=== PATIENT | male | born 1945 | race Caucasian/White ===

== ENCOUNTER → 2021-02-16 09:26 | Outpatient (CLI) | payer MEDICARE, SELFPAY ==
[2021-02-18 15:21] LABS: PSA, Free 1.21 ng/mL; PSA, Free % 20.5 % (.); PSA, Total Ultrasensitive 5.9 ng/mL (0.0-4.0)
== END ==
PROVIDERS: PCP Family Medicine; Referring Provider Nurse Practitioner Adult Health; Visit Provider Nurse Practitioner Adult Health
DX: R97.20 Elevated prostate specific antigen [PSA] (principal)
CPT/HCPCS: 36415; 84153; 84154

== ENCOUNTER → 2022-08-21 | Outpatient (CLI) | payer MEDICARE, SELFPAY ==
[2022-08-21 15:57] LABS: PSA,Total- Diagnostic 8.08 ng/mL (0.0-4.0)
== END | disposition home or self-care (01) ==
PROVIDERS: PCP Family Medicine; Visit Provider Urology
DX: R97.20 Elevated prostate specific antigen [PSA] (principal)
CPT/HCPCS: 36415; 84153

== ENCOUNTER → 2023-02-28 | Outpatient (CLI) | payer MEDICARE, SELFPAY ==
[2023-02-28 11:33] LABS: PSA,Total- Diagnostic 7.59 ng/mL (0.0-4.0)
== END | disposition home or self-care (01) ==
LOC: LAB 10:09
PROVIDERS: PCP Family Medicine; Referring Provider Urology; Visit Provider Urology
DX: R97.20 Elevated prostate specific antigen [PSA] (principal)
CPT/HCPCS: 36415; 84153

== ENCOUNTER → 2023-09-02 | Outpatient (CLI) | payer MEDICARE, SELFPAY ==
[2023-09-02 14:00] LABS: PSA,Total- Diagnostic 6.87 ng/mL (0.0-4.0)
== END | disposition home or self-care (01) ==
LOC: LAB 12:53
PROVIDERS: PCP Family Medicine; Referring Provider Urology; Visit Provider Urology
DX: N40.0 Benign prostatic hyperplasia without lower urinary tract symptoms (principal)
CPT/HCPCS: 36415; 84153

== ENCOUNTER → 2024-03-03 | Outpatient (CLI) | payer MEDICARE, SELFPAY ==
[2024-03-03 11:07] LABS: PSA,Total- Diagnostic 6.64 ng/mL (0.0-4.0)
== END | disposition home or self-care (01) ==
LOC: LAB 09:31
PROVIDERS: PCP Family Medicine; Referring Provider Urology; Visit Provider Urology
DX: R97.20 Elevated prostate specific antigen [PSA] (principal)
CPT/HCPCS: 36415; 84153

== ENCOUNTER → 2025-02-25 | Outpatient (CLI) | payer MEDICARE, SELFPAY ==
--- OUTSIDE RECORDS SUMMARY | 2025-02-25 06:15 | XMS RPT_ITS | CCD ---
Author Organization [facility] Care Team Providers Care Machine Feller Name Role Phone LISA WREN DO Primary Care Physician [phone] LISA WREN DO Primary Care Physician [phone] Jodie Herrmann Unavailable Unavailable Meagan Hairing Nurse, Haile Unavailable Sydney WREN DO, LISA Attending Unavailable MOHAN DO, LISA Primary Care Unavailable MOHAN DO, LISA Primary Care Unavailable MOHAN DO, LISA Attending Unavailable MOHAN DO, LISA Primary Care Unavailable JAMES MACHINE CONTAINER WASHER-PERSONAL COMPUTER SPECIALISTELAINE Attending Unavailab galo MOHAN DO, LISA Primary Care Unavailable EVERTON GREENFIELD Attending Unavailable ANGEL DOMONIKA Consulting Unavailable MOHAN DO, LISA Primary Care Unavailable ANGEL DOMONIKA Attending Unavailable MOHAN DO, LISA Primary Care Unavailable MOHAN DO, LISA Attending Unavailable MOHAN DO, LISA Attending Unavailable MOHAN DO, LISA Primary Care Unavailable BARRY IRBY MD Attending Unavailable MOHAN DO, LISA Primary Care Unavailable MARTINA MACHINE CONTAINER WASHER-PERSONAL COMPUTER SPECIALIST, MISTY Membreno Referring Unavail able FRANCIE MARINELLI MD Consulting Unavailable BARRY IRBY MD Admitting Unavailable MOHAN DO, LISA Primary Care Unavailable BARRY IRBY MD Attending Unavailable MOHAN DO, LISA Primary Care Unavailable MOHAN DO, LISA Attending Unavailable MOHAN DO, LISA Primary Care Unavailable MOHAN DO, LISA Attending Unavailable MOHAN DO, LISA Primary Care Unavailable FIFI GROSS DO Attending Unavailable MOHAN DO, LISA Primary Care Unavailable MOHAN DO, LISA Attending Unavailable Clarke Jasso Referring Unavailable Clarke Jasso Attending Unavailable Mohan, Lisa Primary Care Unavailable Fabienne Hou Attending Unavailable Mohan, Lisa Primary Care Unavailable Allergies Allergy Classification Reported Allergen(s) Allergy Type Date of Onset Reaction(s) Facility (12 sources) Azithromycin Drug Allergy Cramping, Nausea [facility] Comment on above: Can take it along w/ anti-nausea medicine. (12 sources) tiZANidine; Translations: [tizanidine] Drug Allergy Nausea (finding) [facility] (3 sources) fluticasone / salmeterol; Translations: [fluticasone-salm eterol] Drug Allergy Difficulty breathing (finding), Irregular heart beat (finding) [facility] Medications Current Medications Medication Drug Class(es) Dates Sig (Normalized) Sig (Original) Angela 12 Hour Allergy (6 sources) Start: 01-22-2024 take 1 tablet by mouth once daily Angela 12 Hour Allergy 1 tab, Oral, qDay, 0 Refill(s) Start Date: 01/22/24 Status: Ordered Repeat number: 1 Start: 01-22-2024 take 1 mg by mouth once daily Angela 12 Hour Allergy mg =, Oral, qDay, 0 Refill(s) Start Date: 01/22/24 Status: Ordered Repeat number: 1 Start: 01-22-2024 take 1 mg by mouth once daily Angela 12 Hour Allergy mg =, Oral, qDay, 0 Refill(s) Start Date: 01/22/24 Status: Ordered apixaban 5 mg oral tablet (6 sources) Factor Xa Inhibitor Start: 11-09-2024 Eliquis 5 mg oral tablet Dose : 5 mg = 1 tab(s), Oral, BID, # 60 tab(s), 5 Refill(s), Pharmacy: [facility]/pharmacy #[id number], 172.7, cm, 10/21/24 8:50:00 EST, Height, 94.6, kg, 10/13/24 9:15:00 EST, Dosing Weight Start Date: 11/09/24 Status: Ordered Quantity: 60.0 Unit: tab(s) Repeat number: 6 Start: 04-29-2024 Eliquis 5 mg o ral tablet Dose : 5 mg = 1 tab(s), Oral, BID, # 60 tab(s), 5 Refill(s), Pharmacy: [facility]/pharmacy #[id number], 172.7, cm, 04/20/24 13:07:00 EDT, Height, 95.3, kg, 04/20/24 13:07:00 EDT, Dosing Weight Start Date: 04/29/24 Status: Ordered Quantity: 60.0 Unit: tab(s) Repeat number: 6 Start: 04-12-2024 Eliquis 5 mg o ral tablet Dose : 5 mg = 1 tab(s), Oral, BID, # 60 tab(s), 0 Refill(s), 97.1 Start Date: 04/12/24 Status: Ordered Aspirin (1 source) Platelet Aggregation Inhibitor, Nonsteroidal Anti-inflammatory Drug Start: 03-16-2019 aspirin 81 mg oral delayed release tablet Dose : 81 mg = 1 tab(s), Oral, qDay, # 30 tab(s), 0 Refill(s) Start Date: 03/16/19 Status: Ordered 24 hr buPROPion hydrochloride 300 mg extended release oral tablet (12 sources) Aminoketone Start: 10-13-2024 take 1 tablet by mouth every hour, then take 1 tablet by mouth every twenty-four hours Wellbutrin XL 300 mg/24 hours oral tablet, extended release Dose : 300 mg = 1 tab(s), Oral, q24h, # 90 tab(s), 1 Refill(s), Pharmacy: [facility]/pharmacy #[id number], Social anxiety disorder, 172.7, cm, 10/13/24 9:15:00 EST, Height, kg, 10/13/24 9:15:00 EST, Dosing Weight Start Date: 10/13/24 Status: Ordered Quantity: 90.0 Unit: tab(s) Repeat number: 2 Indication: Social phobia, unspecified Start: 10-24-2023 take 1 tablet by david th every hour, then take 1 tablet by mouth once daily Wellbutrin XL 300 mg/24 hours oral tablet, extended release Dose : 300 mg = 1 tab(s), Oral, qDay, # 90 tab(s), 3 Refill(s), Pharmacy: [facility]/pharmacy #[id number], Social anxiety disorder, 171.2, cm, 10/24/23 8:50:00 EST, Height, kg, 10/24/23 8:50:00 EST, Dosing Weight Start Date: 2/1/24 Status: Ordered Start: 12-05-2022 take 1 tablet by david th every hour, then take 1 tablet by mouth once daily Wellbutrin XL 300 mg/24 hours oral tablet, extended release Dose : 300 mg = 1 tab(s), Oral, qDay, # 90 tab(s), 3 Refill(s), [id number], Social anxiety disorder, 171.5, cm, 12/05/22 9:27:00 EDT, Height, kg, 12/05/22 9:27:00 EDT, Dosing Weight Start Date: 12/05/22 Status: Ordered Start: 11-29-2021 take 1 tablet by david th every hour, then take 1 tablet by mouth every twenty-four hours Wellbutrin XL 150 mg/24 hours oral tablet, extended release Dose : 150 mg = 1 tab(s), Oral, q24h, Stop Celexa, # 30 tab(s), 5 Refill(s), [id number], Social anxiety disorder, 172.6, cm, 08/30/21 9:24:00 EST, Height, kg, 08/30/21 9:24:00 EST, Dosing Weight Start Date: 11/29/21 Status: Ordered Start: 05-31-2021 take 1 tablet by david th every hour, then take 1 tablet by mouth every twenty-four hours Wellbutrin XL 150 mg/24 hours oral tablet, extended release Dose : 150 mg = 1 tab(s), Oral, q24h, Stop Celexa, # 30 tab(s), 5 Refill(s), [id number], Social anxiety disorder, 174, cm, 05/31/21 9:11:00 EDT, Height, kg, 05/31/21 9:11:00 EDT, Dosing Weight Start Date: 05/31/21 Status: Ordered carvedilol 12.5 mg oral tablet (5 sources) alpha-Adrenergic Luzma, beta-Adrenergic Luzma Start: 10-30-2024 carvedilol 12.5 mg oral tablet Dose : 18.75 mg = 1.5 tab(s), Oral, BID, Dose was increased, # 90 tab(s), 1 Refill(s), Pharmacy: [facility]/pharmacy #[id number], 172.7, cm, 10/21/24 8:50:00 EST, Height, kg, 10/13/24 9:15:00 EST, Dosing Weight Start Date: 10/30/24 Status: Ordered Quantity: 90.0 Unit: tab(s) Repeat number: 2 Start: 09-22-2024 carvedilol 12. 5 mg oral tablet Dose : 18.75 mg = 1.5 tab(s), Oral, BID, Dose was increased, # 90 tab(s), 0 Refill(s), Pharmacy: [facility]/pharmacy #[id number], 172.7, cm, 09/07/24 10:25:00 EST, Height, kg, 09/07/24 10:25:00 EST, Dosing Weight Start Date: 09/22/24 Status: Ordered Quantity: 90.0 Unit: tab(s) Repeat number: 1 Start: 04-29-2024 carvedilol 12. 5 mg oral tablet Dose : 18.75 mg = 1.5 tab(s), Oral, BID, Dose was increased, # 90 tab(s), 3 Refill(s), Pharmacy: [facility]/pharmacy #[id number], 172.7, cm, 04/20/24 13:07:00 EDT, Height, kg, 04/20/24 13:07:00 EDT, Dosing Weight Start Date: 04/29/24 Status: Ordered cetirizine hydrochloride 10 mg oral tablet (1 source) Histamine-1 Receptor Antagonist Start: 01-17-2021 Zyrtec 10 mg oral tablet Dose : 10 mg = 1 tab(s), Oral, qDay, # 30 tab(s), 0 Refill(s) Start Date: 01/17/21 Status: Ordered Osteo Bi-Flex (6 sources) Start: 05-27-2019 Osteo Bi-Flex See Instructions, 1 tablet once daily, 0 Refill(s) Start Date: 05/27/19 Status: Ordered docusate sodium 100 mg oral capsule (2 sources) Start: 11-25-2024 Dulcolax Stool Softener 100 mg oral capsule Dose : 100 mg = 1 cap(s), Oral, BID, PRN as needed for constipation, # 20 cap(s), 0 Refill(s) Start Date: 11/25/24 Status: Ordered Quantity: 20.0 Unit: cap(s) Repeat number: 1 Fish Oils (9 sources) Start: 06-15-2022 Fish Oil 1000 mg oral capsule Dose : 1,000 mg = 1 cap(s), Oral, BID, # 60 cap(s), 0 Refill(s) Start Date: 06/15/22 Status: Ordered Quantity: 60.0 Unit: cap(s) Repeat number: 1 Start: 06-15-2022 Fish Oil 1000 mg oral capsule Dose : 1,000 mg = 1 cap(s), Oral, BID, # 60 cap(s), 0 Refill(s) Start Date: 06/15/22 Status: Ordered fluticasone propionate 0.05 mg/actuat metered dose nasal spray (10 sources) Corticosteroid Start: 09-01-2024 take 50 ug nasal route twice daily fluticasone proprionate NASAL 50 mcg/ spray 50 mcg Dose = 1 spray(s), Nostril, each, BID, 0 Refill(s) Start Date: 09/01/24 Status: Ordered Repeat number: 1 Start: 06-02-2024 End: 11-29-2024 take 1 dose nasal route twice daily fluticasone proprionate NASAL 50 mcg/ spray Dose = 1 spray(s), Nostril, each, BID, # 1 EA, 5 Refill(s), Pharmacy: [facility]/pharmacy #[id number], Seasonal allergies, 172.7, cm, 06/02/24 9:16:00 EDT, Height, kg, 06/02/24 9:16:00 EDT, Dosing Weight Start Date: 06/02/24 Stop Date: 11/29/24 Status: Ordered Start: 10-24-2023 End: 04-21-2024 take 1 dose nasal route twice daily fluticasone proprionate NASAL 50 mcg/ spray Dose = 1 spray(s), Nostril, each, BID, # 1 EA, 5 Refill(s), Pharmacy: [facility]/pharmacy #[id number], Seasonal allergies, 171.2, cm, 10/24/23 8:50:00 EST, Height, kg, 10/24/23 8:50:00 EST, Dosing Weight Start Date: 10/24/23 Stop Date: 04/21/24 Status: Ordered Start: 01-24-2022 take 2 spray(s) nasa l route once daily fluticasone proprionate NASAL 50 mcg/ spray See Instructions, INSTILL 2 SPRAYS INTO NOSTRIL(S) DAILY, # 16 mL, 5 Refill(s), Pharmacy: [facility]/pharmacy #[id number], Seasonal allergies, 172.6, cm, 01/03/22 9:00:00 EDT, Height, kg, 01/03/22 9:00:00 EDT, Dosing Weight Start Date: 01/24/22 Status: Ordered Start: 04-26-2021 take 2 spray(s) nasa l route once daily fluticasone proprionate NASAL 50 mcg/ spray See Instructions, INSTILL 2 SPRAYS INTO NOSTRIL(S) DAILY, # 16 mL, 5 Refill(s), Pharmacy: [facility]/pharmacy #[id number], Seasonal allergies, 174, cm, 04/26/21 8:57:00 EDT, Height, kg, 04/26/21 8:57:00 EDT, Dosing Weight Start Date: 04/26/21 Status: Ordered 60 actuat fluticasone propionate 0.25 mg/actuat / salmeterol 0.05 mg/actuat dry powder inhaler (1 source) Corticosteroid, beta2-Adrenergic Agonist Start: 06-26-2024 End: 12-23-2024 take 1 dose by mouth twice daily Wixela Inhub 250 mcg-50 mcg inhalation powder Dose = 1 puff(s), Inhalation, BID, rinse mouth and throat after use, # 1 EA, 5 Refill(s), Pharmacy: [facility]/pharmacy #[id number], COPD - Chronic obstructive pulmonary disease, 172.7, cm, 06/02/24 9:16:00 EDT, Height, kg, 06/02/24 9:16:00 EDT, Dosing Weight Start Date: 06/26/24 Stop Date: 12/23/24 Status: Ordered fluticasone proprionate NASAL 50 mcg/ spray (1 source) Start: 04-26-2021 take 2 spray(s) nasal route once daily fluticasone proprionate NASAL 50 mcg/ spray See Instructions, INSTILL 2 SPRAYS INTO NOSTRIL(S) DAILY, # 16 mL, 5 Refill(s), Pharmacy: [facility]/pharmacy #[id number], Seasonal allergies, 174, cm, 04/26/21 8:57:00 EDT, Height, kg, 04/26/21 8:57:00 EDT, Dosing Weight Start Date: 04/26/21 Status: Ordered fluticasone-salmeterol 250 mcg-50 mcg/inh inhalation powder (1 source) Start: 11-25-2024 fluticasone-salmeterol 250 mcg-50 mcg/inh inhalation powder Dose = 1 puff(s), Inhalation, BID, PRN Allergy symptoms, # 60 EA, 0 Refill(s) Start Date: 11/25/24 Status: Ordered Quantity: 60.0 Unit: EA Repeat number: 1 hydroCHLOROthiazide 25 mg oral tablet (10 sources) Thiazide Diuretic Start: 09-01-2024 hydroCHLOROthiazide 25 mg oral tablet Dose : 25 mg = 1 tab(s), Oral, qDay, # 90 tab(s), 1 Refill(s), [id number], Hypertension, 171, cm, 09/01/24 10:38:00 EST, Height, kg, 09/01/24 10:38:00 EST, Dosing Weight Start Date: 09/01/24 Status: Ordered Quantity: 90.0 Unit: tab(s) Repeat number: 2 Indication: Essential (primary) hypertension Start: 04-07-2024 hydroCHLOROthi azide 25 mg oral tablet Dose : 25 mg = 1 tab(s), Oral, qDay, # 90 tab(s), 1 Refill(s), [id number], Hypertension, 171.5, cm, 04/07/24 8:46:00 EDT, Height, kg, 04/07/24 8:46:00 EDT, Dosing Weight Start Date: 04/07/24 Status: Ordered Start: 12-05-2022 hydroCHLOROthi azide 25 mg oral tablet Dose : 25 mg = 1 tab(s), Oral, qDay, # 90 tab(s), 3 Refill(s), [id number], Bilateral lower extremity edema Hypertension, 171.5, cm, 12/05/22 9:27:00 EDT, Height, kg, 12/05/22 9:27:00 EDT, Dosing Weight Start Date: 12/05/22 Status: Ordered Start: 01-03-2022 hydroCHLOROthi azide 25 mg oral tablet Dose : 25 mg = 1 tab(s), Oral, qDay, # 90 tab(s), 1 Refill(s), Pharmacy: [facility] #[id number], Bilateral lower extremity edema Hypertension, 172.6, cm, 01/03/22 9:00:00 EDT, Height, kg, 01/03/22 9:00:00 EDT, Dosing Weight Start Date: 01/03/22 Status: Ordered Start: 03-07-2021 hydroCHLOROthi azide 25 mg oral tablet Dose : 25 mg = 1 tab(s), Oral, qDay, # 90 tab(s), 1 Refill(s), Pharmacy: [facility] #[id number], Hypertension Bilateral lower extremity edema, 174, cm, 03/07/21 7:54:00 EDT, Height, kg, 03/07/21 7:54:00 EDT, Dosing Weight Start Date: 03/07/21 Status: Ordered hydrocortisone 25 mg/ml topical cream (3 sources) Corticosteroid Start: 10-22-2019 hydrocortisone 2.5% topical cream Apply 1 reynold, Topical, BID, # 20 gram(s), 1 Refill(s), [id number] Start Date: 10/22/19 Status: Ordered Start: 10-22-2019 hydrocortisone 2.5% topical cream Apply 1 reynold, Topical, BID, # 20 gram(s), 1 Refill(s), Pharmacy: [facility] #[id number] Start Date: 10/22/19 Status: Ordered ibuprofen 200 mg oral tablet (2 sources) Nonsteroidal Anti-inflammatory Drug Start: 11-25-2024 Advil 200 mg oral tablet Dose : 400 mg = 2 tab(s), Oral, q4h, PRN as needed for pain, # 120 tab(s), 0 Refill(s) Start Date: 11/25/24 Status: Ordered Quantity: 120.0 Unit: tab(s) Repeat number: 1 lisinopril 40 mg oral tablet (4 sources) Angiotensin Converting Enzyme Inhibitor Start: 12-05-2022 End: 11-30-2023 lisinopril 40 mg oral tablet Dose : 40 mg = 1 tab(s), Oral, qDay, # 90 tab(s), 3 Refill(s), Pharmacy: [facility]/pharmacy #[id number], Hypertension, 171.5, cm, 12/05/22 9:27:00 EDT, Height, kg, 12/05/22 9:27:00 EDT, Dosing Weight Start Date: 12/05/22 Stop Date: 11/30/23 Status: Ordered Start: 01-03-2022 End: 07-02-2022 lisinopril 40 mg oral tablet Dose : 40 mg = 1 tab(s), Oral, qDay, # 90 tab(s), 1 Refill(s), Pharmacy: [facility]/pharmacy #[id number], Hypertension, 172.6, cm, 01/03/22 9:00:00 EDT, Height, kg, 01/03/22 9:00:00 EDT, Dosing Weight Start Date: 01/03/22 Stop Date: 07/02/22 Status: Ordered Start: 03-07-2021 End: 09-03-2021 lisinopril 40 mg oral tablet Dose : 40 mg = 1 tab(s), Oral, qDay, # 90 tab(s), 1 Refill(s), Pharmacy: [facility]/pharmacy #[id number], Hypertension, 174, cm, 03/07/21 7:54:00 EDT, Height, kg, 03/07/21 7:54:00 EDT, Dosing Weight Start Date: 03/07/21 Stop Date: 09/03/21 Status: Ordered losartan potassium 50 mg oral tablet (10 sources) Angiotensin 2 Receptor Luzma Start: 09-01-2024 losartan 50 mg oral tablet Dose : 50 mg = 1 tab(s), Oral, qDay, # 90 tab(s), 1 Refill(s), Pharmacy: [facility]/pharmacy #[id number], Hypertension, 171, cm, 09/01/24 10:38:00 EST, Height, kg, 09/01/24 10:38:00 EST, Dosing Weight Start Date: 09/01/24 Status: Ordered Quantity: 90.0 Unit: tab(s) Repeat number: 2 Indication: Essential (primary) hypertension Start: 06-02-2024 losartan 50 mg oral tablet Dose : 50 mg = 1 tab(s), Oral, qDay, # 90 tab(s), 1 Refill(s), Pharmacy: [facility]/pharmacy #[id number], Hypertension, 172.7, cm, 06/02/24 9:16:00 EDT, Height, kg, 06/02/24 9:16:00 EDT, Dosing Weight Start Date: 06/02/24 Status: Ordered Start: 01-22-2024 losartan 50 mg oral tablet Dose : 50 mg = 1 tab(s), Oral, qDay, # 90 tab(s), 1 Refill(s), [id number], Hypertension, 171.5, cm, 01/22/24 9:00:00 EDT, Height, kg, 01/22/24 9:00:00 EDT, Dosing Weight Start Date: 01/22/24 Status: Ordered Start: 11-07-2023 losartan 50 mg oral tablet Dose : 50 mg = 1 tab(s), Oral, qDay, Start 2 weeks after finishing the 25 mg tablet prescription., # 90 tab(s), 0 Refill(s), [id number], Hypertension, 171.2, cm, 10/24/23 8:50:00 EST, Height, kg, 10/24/23 8:50:00 EST, Dosing Weight Start Date: 11/07/23 Status: Ordered Start: 11-07-2023 losartan 50 mg oral tablet Dose : 50 mg = 1 tab(s), Oral, qDay, Start 2 weeks after finishing the 25 mg tablet prescription., # 90 tab(s), 0 Refill(s), [id number], Hypertension, 171.2, cm, 10/24/23 8:50:00 EST, Height, kg, 10/24/23 8:50:00 EST, Dosing Weight Start Date: 11/07/23 Status: Ordered Start: 10-24-2023 End: 11-07-2023 losartan 25 mg oral tablet D ose : 25 mg = 1 tab(s), Oral, qDay, Discontinue lisinopril.. Take 1 tablet daily for 2 weeks then increase to 50 mg tablet. New prescription will be sent for 50 mg tablet, # 14 tab(s), 0 Refill(s), [id number], Hypertension, 171.2, cm, 10/24/23 8:50:00 EST, Height, kg, 10/24/23 8:50:00 EST, Dosing Weight Start Date: 10/24/23 Stop Date: 11/07/23 Status: Ordered melatonin 1 mg oral tablet (9 sources) Start: 02-12-2023 melatonin 1 mg oral tablet Dose : 2 mg = 2 tab(s), Oral, qHS, PRN as needed for insomnia, # 90 tab(s), 0 Refill(s) Start Date: 02/12/23 Status: Ordered Quantity: 90.0 Unit: tab(s) Repeat number: 1 naproxen sodium 220 mg oral tablet (2 sources) Nonsteroidal Anti-inflammatory Drug Start: 11-25-2024 Aleve 220 mg oral tablet Dose : 220 mg = 1 tab(s), Oral, q8h, PRN as needed for pain, # 30 tab(s), 0 Refill(s) Start Date: 11/25/24 Status: Ordered Quantity: 30.0 Unit: tab(s) Repeat number: 1 One A Day Men's Complete oral tablet (9 sources) Start: 06-15-2022 take 1 tablet by mouth once daily One A Day Men's Complete oral tablet Oral, qDay, 0 Refill(s) Start Date: 06/15/22 Status: Ordered Repeat number: 1 Start: 06-15-2022 take 1 tablet by david th once daily One A Day Men's Complete oral tablet Oral, qDay, 0 Refill(s) Start Date: 06/15/22 Status: Ordered Osteo Bi-Flex Advanced oral tablet (1 source) Start: 12-02-2024 take 1 tablet by mouth once daily at mealtime Osteo Bi-Flex Advanced oral tablet Dose = 1 tab(s), Oral, Daily, 0 Refill(s), Take with food Start Date: 12/02/24 Status: Ordered Repeat number: 1 PreserVision AREDS 2 oral capsule (5 sources) Start: 01-03-2022 take 1 capsule by mouth once daily PreserVision AREDS 2 oral capsule Dose = 1 cap(s), Oral, Daily, OTC, # 30 cap(s), 11 Refill(s), other reason (Rx) Start Date: 01/03/22 Status: Ordered simvastatin 20 mg oral tablet (10 sources) HMG-CoA Reductase Inhibitor Start: 09-01-2024 simvastatin 20 mg oral tablet Dose : 20 mg = 1 tab(s), Oral, qHS, # 90 tab(s), 3 Refill(s), [id number], Hyperlipidemia, 171, cm, 09/01/24 10:38:00 EST, Height, kg, 09/01/24 10:38:00 EST, Dosing Weight Start Date: 09/01/24 Status: Ordered Quantity: 90.0 Unit: tab(s) Repeat number: 4 Indication: Hyperlipidemia, unspecified Start: 10-24-2023 simvastatin 20 mg oral tablet Dose : 20 mg = 1 tab(s), Oral, qHS, # 90 tab(s), 3 Refill(s), Pharmacy: [facility]acy #[id number], Hyperlipidemia, 171.2, cm, 10/24/23 8:50:00 EST, Height, kg, 10/24/23 8:50:00 EST, Dosing Weight Start Date: 10/24/23 Status: Ordered Start: 12-05-2022 simvastatin 20 mg oral tablet Dose : 20 mg = 1 tab(s), Oral, qHS, # 90 tab(s), 3 Refill(s), [id number], Hyperlipidemia, 171.5, cm, 12/05/22 9:27:00 EDT, Height, kg, 12/05/22 9:27:00 EDT, Dosing Weight Start Date: 12/05/22 Status: Ordered Start: 01-10-2022 simvastatin 20 mg oral tablet Dose : 20 mg = 1 tab(s), Oral, qHS, New medication, # 90 tab(s), 1 Refill(s), [id number], Hyperlipidemia, 172.6, cm, 01/03/22 9:00:00 EDT, Height Start Date: 01/10/22 Status: Ordered tamsulosin hydrochloride 0.4 mg oral capsule (8 sources) alpha-Adrenergic Luzma Start: 03-20-2023 tamsu losin 0.4 mg oral capsule Dose : 0.4 mg = 1 cap(s), Oral, qPM, # 30 cap(s), 0 Refill(s) Start Date: 03/20/23 Status: Ordered Quantity: 30.0 Unit: cap(s) Repeat number: 1 Vitamin D3 25 mcg (1000 intl units) oral capsule (7 sources) Start: 10-24-2023 Vitamin D3 25 mcg (1000 intl units) oral capsule Dose : 75 mcg = 3 cap(s), Oral, qDay, 0 Refill(s) Start Date: 10/24/23 Status: Ordered Repeat number: 1 Start: 10-24-2023 Vitamin D3 25 mcg (1000 intl units) oral capsule Dose : 75 mcg = 3 cap(s), Oral, qDay, 0 Refill(s) Start Date: 10/24/23 Status: Ordered Start: 10-24-2023 Vitamin D3 25 mcg (1000 intl units) oral capsule Dose : 50 mcg = 2 cap(s), Oral, qDay, 0 Refill(s) Start Date: 10/24/23 Status: Ordered Vitamin D3 50 mcg (2000 intl units) oral capsule (1 source) Start: 12-02-2024 Vitamin D3 50 mcg (2000 intl units) oral capsule Dose : 50 mcg = 1 cap(s), Oral, qDay, # 60 cap(s), 0 Refill(s) Start Date: 12/02/24 Status: Ordered Quantity: 60.0 Unit: cap(s) Repeat number: 1 Completed/Discontinued Medications Medication Drug Class(es) Dates Sig (Normalized) Sig (Original) [id number] 200 actuat albuterol 0.09 mg/actuat metered dose inhaler (12 sources) beta2-Adrenergic Agonist Start: 06-02-2024 End: 11-29-2024 take 2 puff(s) by inhalation every six hours ProAir HFA MDI (90 mcg/inh) inhalation aerosol 2 puff(s), Inhalation, q6hr, # 1 EA, 5 Refill(s), Pharmacy: [facility]/pharmacy #[id number], COPD - Chronic obstructive pulmonary disease, 172.7, cm, 06/02/24 9:16:00 EDT, Height, kg, 06/02/24 9:16:00 EDT, Dosing Weight Start Date: 06/02/24 Stop Date: 11/29/24 Status: Ordered Quantity: 1.0 Unit: EA Repeat number: 6 Indication: Chronic obstructive pulmonary disease, unspecified Start: 03-20-2023 End: 09-16-2023 take 2 puff(s) by inhalation every six hours ProAir HFA MDI (90 mcg/inh) inhalation aerosol 2 puff(s), Inhalation, q6hr, # 1 EA, 5 Refill(s), [id number], COPD - Chronic obstructive pulmonary disease, 172, cm, 03/20/23 9:53:00 EDT, Height, kg, 03/20/23 9:53:00 EDT, Dosing Weight Start Date: 03/20/23 Stop Date: 09/16/23 Status: Ordered Start: 10-13-2019 ProAir HFA MDI (90 mcg/inh) inhalation aerosol See Instructions, # 8.5 inhaler, Refill #: 5 Total Refills: 5, USE 2 INHALATIONS 4 TIMES DAILY NEEDED, [facility]/pharmacy #[id number] Start Date: 10/13/19 Status: Ordered Start: 10-13-2019 ProAir HFA MDI (90 mcg/inh) inhalation aerosol See Instructions, # 8.5 inhaler, Refill #: 5 Total Refills: 5, USE 2 INHALATIONS 4 TIMES DAILY NEEDED, [facility]/pharmacy #[id number] Start Date: 10/13/19 Status: Ordered ALPRAZolam 0.5 mg oral tablet (2 sources) Benzodiazepine Start: 05-31-2021 End: 07-30-2021 ALPRAZolam 0.5 mg oral tablet Dose : 0.5 mg = 1 tab(s), Oral, BID, PRN for anxiety, use PRN, # 60 tab(s), 1 Refill(s), Pharmacy: [facility]/pharmacy #[id number], Social anxiety disorder, 174, cm, 05/31/21 9:11:00 EDT, Height, 95.1, kg, 05/31/21 9:11:00 EDT, Dosing Weight Start Date: 05/31/21 Stop Date: 07/30/21 Status: Ordered Ascorbic Acid / Beta Carotene / cuprous oxide / Vitamin E / Zinc Oxide (8 sources) Vitamin C Start: 10-24-2023 Preser Vision Preser Vision, 1 tablet, Oral, BID, 0 Refill(s), 95.8 Start Date: 10/24/23 Status: Ordered Repeat number: 1 Start: 10-24-2023 Preser Vision Preser Vision, 2 tablets, Oral, qDay, 0 Refill(s), 95.8 Start Date: 10/24/23 Status: Ordered Repeat number: 1 Start: 10-24-2023 Preser Vision Preser Vision, 2 tablets, Oral, qDay, 0 Refill(s), 95.8 Start Date: 10/24/23 Status: Ordered 24 hr metoprolol succinate 100 mg extended release oral tablet (8 sources) beta-Adrenergic Luzma Start: 04-12-2024 End: 04-12-2024 metoprolol succinate 100 mg oral TABLET extended release Start: 04/12/24 1:15:00 PM EDT, Dose = 100 mg, = 2 tab(s), Oral, Once, Stop: 04/12/24 1:52:10 PM EDT, 0, 04/12/24 13:14:00 EDT Notes: Do not crush or chew (controlled release).Take with food. Start Date: 04/12/24 Stop Date: 04/12/24 Status: Completed Start: 10-24-2023 metoprolol suc cinate 100 mg oral TABLET extended release Dose : 100 mg = 1 tab(s), Oral, qDay, # 90 tab(s), 3 Refill(s), Pharmacy: [facility] #[id number], Hypertension, 171.2, cm, 10/24/23 8:50:00 EST, Height, kg, 10/24/23 8:50:00 EST, Dosing Weight Start Date: 10/24/23 Status: Ordered Start: 12-05-2022 metoprolol suc cinate 100 mg oral TABLET extended release Dose : 100 mg = 1 tab(s), Oral, qDay, # 90 tab(s), 3 Refill(s), Pharmacy: [facility]/pharmacy #[id number], Hypertension, 171.5, cm, 12/05/22 9:27:00 EDT, Height, kg, 12/05/22 9:27:00 EDT, Dosing Weight Start Date: 12/05/22 Status: Ordered Start: 03-06-2022 metoprolol suc cinate 100 mg oral TABLET extended release Dose : 100 mg = 1 tab(s), Oral, qDay, # 90 tab(s), 0 Refill(s) Start Date: 03/06/22 Status: Ordered Start: 04-13-2022 take 1 tablet by david th once daily Metoprolol Succinate ER 200 mg oral TABLET extended release TAKE 1 TABLET BY MOUTH EVERY DAY Start Date: 01/03/22 Status: Ordered Start: 10-27-2020 End: 10-22-2021 Metoprolol Succinate ER 200 mg oral TABLET extended release Dose : 100 mg = 0.5 tab(s), Oral, qDay, decreased dose, X 90 day(s), # 45 tab(s), 3 Refill(s), 10/22/21 9:49:00 EST, Pharmacy: [facility]/pharmacy #[id number], Hypertension, 174.6, cm, 08/24/20 9:35:00 EST, Height, kg, 10/27/20 8:51:00 EST, Dosing Weight Start Date: 10/27/20 Stop Date: 10/22/21 Status: Ordered [facility] Medication (5 sources) Start: 01-22-2024 [facility] Medicatio n Osteo Bi-Flex, 0 Refill(s), 96.1 Start Date: 01/22/24 Status: Ordered Repeat number: 1 Start: 01-22-2024 [facility] Medicatio n Osteo Bi-Flex, 0 Refill(s), 96.1 Start Date: 01/22/24 Status: Ordered ondansetron 4 mg oral tablet , disintegrating (1 source) Start: 11-08-2020 End: 11-11-2020 ondansetron 4 mg oral tablet , disintegrating Dose : 4 mg = 1 tab(s), Oral, q8h, # 9 tab(s), 0 Refill(s) Start Date: 11/08/20 Stop Date: 11/11/20 Status: Ordered Problems Problem Classification Problem Date Documented Date Episodic/Chronic Allergic reactions (12 sources) Facial eczema 11-25-2019 Episodic Anxiety disorders (13 sources) Social phobia; Translations: [Social phobia, unspecified] Onset: 5 04-28-2019 Chronic Cardiac dysrhythmias (7 sources) Unspecified atrial fibrillation; Translations: [Paroxysmal atrial fibrillation] Onset: 4 Chronic Chronic kidney disease (8 sources) Chronic kidney disease stage 3 03-20-2023 Chronic Chronic kidney disease (2 sources) Chronic kidney disease; Translations: [Chronic kidney disease, stage 3 unspecified] Onset: 3 Chronic obstructive pulmonary disease and bronchiectasis (13 sources) Chronic obstructive lung disease; Translations: [Chronic obstructive pulmonary disease, unspecified] Onset: 5 04-28-2019 Chronic Coagulation and hemorrhagic disorders (5 sources) Hypercoagulability state 04-16-2024 Chronic Diseases of mouth; excluding dental (9 sources) Xerostomia 02-12-2023 Episodic Disorders of lipid metabolism (15 sources) Hyperlipidemia; Translations: [Hyperlipidemia, unspecified] Onset: 4 04-28-2019 Chronic Esophageal disorders (10 sources) Gastroesophageal reflux disease 04-28-2019 Chronic Essential hypertension (16 sources) Hypertensive disorder; Translations: [Essential (primary) hypertension] Onset: 3 04-28-2019 Chronic Hyperplasia of prostate (8 sources) Benign prostatic hyperplasia 03-20-2023 Chronic Malaise and fatigue (12 sources) Fatigue 02-07-2021 Episodic Nutritional deficiencies (3 sources) Vitamin D deficiency 10-13-2024 Chronic Other aftercare (12 sources) Post-discharge follow-up 11-17-2020 Episodi c Other connective tissue disease (12 sources) Disorder of abdominal wall 09-02-2019 Episodic Other connective tissue disease (12 sources) Increased muscle tone 03-07-2021 Episodic Other connective tissue disease (10 sources) Trigger thumb of right hand 04-26-2020 Episodic Other ear and sense organ disorders (12 sources) Bilateral hearing loss 07-15-2020 Chronic Other lower respiratory disease (12 sources) Dyspnea 01-17-2021 Episodic Other lower respiratory disease (6 sources) Cough 07-26-2023 Episodic Other non-traumatic joint disorders (12 sources) Joint pain 11-25-2019 Episodic Other nutritional; endocrine; and metabolic disorders (5 sources) Body mass index 30+ - obesity 06-02-2024 Chronic Other screening for suspected conditions (not mental disorders or infectious disease) (13 sources) Viral screening status; Translations: [Elevated prostate specific antigen [PSA]] Onset: 4 01-03-2022 Episodic Other upper respiratory disease (12 sources) Seasonal allergy 08-24-2020 Chronic Residual codes; unclassified (12 sources) Bilateral lower limb edema 01-17-2021 Episodic Residual codes; unclassified (12 sources) Needs influenza immunization 07-15-2020 Episodic Residual codes; unclassified (12 sources) Requires vaccination 07-06-2020 Episodic Screening and history of mental health and substance abuse codes (5 sources) Ex-smoker 06-02-2024 Episodic Spondylosis; intervertebral disc disorders; other back problems (12 sources) Spasm of back muscles 10-27-2020 Episodic Unclassified (12 sources) H/O: high risk medication 04-29-2019 Unclassified (20 sources) Patient encounter status 01-03-2022 Unclassified (8 sources) Influenza vaccination status 10-24-2023 Results Test Name Value Interpretation Reference Range Facility .GFRon 01-05-2025 Estimated Glomerular Filtration Rate 48 ml/min/1.73sqm Normal [facility] Comment on above: Result Comment: Stages of Chronic Kidney Disease (CKD) Stage Description eGFR(ml/min/1.73 sq.m.) CKD 1 Normal kidney function or >=90 normal kindney function with possible kidney damage (ex. Proteinuria) CKD 2 Kidney damage with mild loss 60-89 of kidney function CKD 3a Mild to moderate loss of kidney 45-59 function CKD 3b Moderate to severe loss of 30-44 of kindey function CKD 4 Severe loss of kidney function 15-29 CKD 5 Kidney failure <15 Note: (go live 2024) the eGFR calculation was updated to the 2020 CKD-EPI creatinine equation without a race factor to calculate the eGFR results. Performed By: #### M DW, TROPHS, ADIFF, TSH, MG, ANEU, CBC, GFR, BMP, PBNP #### [address] [address] CMPon 01-05-2025 Albumin Level 3.6 G/dL Normal 3.4-4.8 [facility] Comment on above: Performed By: #### M DW, TROPHS, ADIFF, TSH, MG, ANEU, CBC, GFR, BMP, PBNP #### [address] [address] Albumin/Globulin [Mass ratio] 1.1 {ratio} Normal 1.1-2.5 [facility] Comment on above: Performed By: #### M DW, TROPHS, ADIFF, TSH, MG, ANEU, CBC, GFR, BMP, PBNP #### [address] [address] ALP [Catalytic activity/Vol] 70 U/L Normal 40-135 [facility] Comment on above: Performed By: #### M DW, TROPHS, ADIFF, TSH, MG, ANEU, CBC, GFR, BMP, PBNP #### [address] [address] ALT [Catalytic activity/Vol] 36 U/L Normal 16-63 [facility] Comment on above: Performed By: #### M DW, TROPHS, ADIFF, TSH, MG, ANEU, CBC, GFR, BMP, PBNP #### [address] [address] AST [Catalytic activity/Vol] 27 U/L Normal 10-40 [facility] Comment on above: Performed By: #### M DW, TROPHS, ADIFF, TSH, MG, ANEU, CBC, GFR, BMP, PBNP #### [address] [address] Bili Total 0.9 mg/dL Normal 0.2-1.0 [facility] Comment on above: Result Comment: Use of this assay is not recommended for patients undergoing treatment with eltrombopag due to the potential for falsely elevated results. Performed By: #### M DW, TROPHS, ADIFF, TSH, MG, ANEU, CBC, GFR, BMP, PBNP #### [address] [address] BUN/Creatinine Ratio 11 ratio Normal 7-27 [facility] Comment on above: Performed By: #### M DW, TROPHS, ADIFF, TSH, MG, ANEU, CBC, GFR, BMP, PBNP #### [address] [address] Calcium [Mass/Vol] 10.0 mg/dL Normal 8.4-10.2 [facility] Comment on above: Performed By: #### M DW, TROPHS, ADIFF, TSH, MG, ANEU, CBC, GFR, BMP, PBNP #### [address] [address] Chloride [Moles/Vol] 99 mmol/L Normal 98-107 [facility] Comment on above: Performed By: #### M DW, TROPHS, ADIFF, TSH, MG, ANEU, CBC, GFR, BMP, PBNP #### [address] [address] CO2 [Moles/Vol] 34 mmol/L High 23-31 [facility] Comment on above: Performed By: #### M DW, TROPHS, ADIFF, TSH, MG, ANEU, CBC, GFR, BMP, PBNP #### [address] [address] Creatinine [Mass/Vol] 1.48 mg/dL High 0.70-1.30 [facility] Comment on above: Result Comment: Test ing performed on [employer] Dimension EXL analyzer using a modified kinetic Nolvia technique. Performed By: #### M DW, TROPHS, ADIFF, TSH, MG, ANEU, CBC, GFR, BMP, PBNP #### [address] [address] Electrolyte Balance 3.0 mEq/L Low 4.0-15.0 [facility] Comment on above: Performed By: #### M DW, TROPHS, ADIFF, TSH, MG, ANEU, CBC, GFR, BMP, PBNP #### [address] [address] Globulin 3.3 G/dL Normal 1.5-3.8 [facility] Comment on above: Performed By: #### M DW, TROPHS, ADIFF, TSH, MG, ANEU, CBC, GFR, BMP, PBNP #### [address] [address] Glucose [Mass/Vol] 105 mg/dL Normal 83-110 [facility] Comment on above: Performed By: #### M DW, TROPHS, ADIFF, TSH, MG, ANEU, CBC, GFR, BMP, PBNP #### [address] [address] Potassium [Moles/Vol] 4.2 mmol/L Normal 3.5-5.1 [facility] Comment on above: Performed By: #### M DW, TROPHS, ADIFF, TSH, MG, ANEU, CBC, GFR, BMP, PBNP #### [address] [address] Sodium [Moles/Vol] 136 mmol/L Normal 136-145 [facility] Comment on above: Performed By: #### M DW, TROPHS, ADIFF, TSH, MG, ANEU, CBC, GFR, BMP, PBNP #### [address] [address] Total Protein 6.9 G/dL Normal 6.4-8.2 [facility] Comment on above: Performed By: #### M DW, TROPHS, ADIFF, TSH, MG, ANEU, CBC, GFR, BMP, PBNP #### [address] [address] Urea nitrogen [Mass/Vol] 16 mg/dL Normal 7-18 [facility] Comment on above: Performed By: #### M DW, TROPHS, ADIFF, TSH, MG, ANEU, CBC, GFR, BMP, PBNP #### [address] [address] LIPIDon 01-05-2025 Cholesterol [Mass/Vol] 134 mg/dL Normal 0-200 [facility] Comment on above: Result Comment: Chol esterol Reference Interval: Less than 200 Desirable 200-239 Borderline high risk 240 and above High risk Performed By: #### M DW, TROPHS, ADIFF, TSH, MG, ANEU, CBC, GFR, BMP, PBNP #### [address] [address] Cholesterol in HDL [Mass/Vol] 49 mg/dL Normal 40-60 [facility] Comment on above: Performed By: #### M DW, TROPHS, ADIFF, TSH, MG, ANEU, CBC, GFR, BMP, PBNP #### [address] [address] Cholesterol in LDL [Mass/Vol] 57 mg/dL Normal 0-130 [facility] Comment on above: Performed By: #### M DW, TROPHS, ADIFF, TSH, MG, ANEU, CBC, GFR, BMP, PBNP #### [place] [address] Triglyceride [Mass/Vol] 140 mg/dL Normal 0-150 [facility] Comment on above: Result Comment: Trig lyceride Reference Interval: Less than 150 Normal 150-199 Borderline high risk 200-499 High risk 500 or higher Very high risk Performed By: #### M DW, TROPHS, ADIFF, TSH, MG, ANEU, CBC, GFR, BMP, PBNP #### [place] [address] PSAon 01-05-2025 Prostate Specific Antigen 8.13 ng/mL High 0.00-4.00 [facility] Comment on above: Performed By: #### M DW, TROPHS, ADIFF, TSH, MG, ANEU, CBC, GFR, BMP, PBNP #### [place] [address] TSHon 01-05-2025 TSH Qn 1.78 m[IU]/L Normal 0.36-3.74 [facility] Comment on above: Performed By: #### M DW, TROPHS, ADIFF, TSH, MG, ANEU, CBC, GFR, BMP, PBNP #### [place] [address] VIDHon 01-05-2025 Vit. D 25-Hydroxy 108.3 ng/mL Normal [facility] Comment on above: Result Comment: Inte rpretive Values Based on Total 25(OH) Vitamin D: Deficient <20 ng/mL Insufficient 20 - <30 ng/mL Sufficient 30-100 ng/mL Performed By: #### M DW, TROPHS, ADIFF, TSH, MG, ANEU, CBC, GFR, BMP, PBNP #### [place] [address] .GFRon 12-03-2024 Estimated Glomerular Filtration Rate 47 ml/min/1.73sqm Normal [facility] Comment on above: Result Comment: Stages of Chronic Kidney Disease (CKD) Stage Description eGFR(ml/min/1.73 sq.m.) CKD 1 Normal kidney function or >=90 normal kindney function with possible kidney damage (ex. Proteinuria) CKD 2 Kidney damage with mild loss 60-89 of kidney function CKD 3a Mild to moderate loss of kidney 45-59 function CKD 3b Moderate to severe loss of 30-44 of kindey function CKD 4 Severe loss of kidney function 15-29 CKD 5 Kidney failure <15 Note: (go live 2024) the eGFR calculation was updated to the 2020 CKD-EPI creatinine equation without a race factor to calculate the eGFR results. Performed By: #### B MP, GFR #### [address] [address] [facility] 12-03-2024 BUN/Creatinine Ratio 14.0 ratio Normal 10.0-22.0 [facility] Comment on above: Performed By: #### B MP, GFR #### [address] [address] Calcium [Mass/Vol] 9.2 mg/dL Normal 8.7-10.4 [facility] Comment on above: Performed By: #### B MP, GFR #### [address] [address] Chloride [Moles/Vol] 102 mmol/L Normal 98-110 [facility] Comment on above: Performed By: #### B MP, GFR #### [address] [address] CO2 [Moles/Vol] 25 mmol/L Normal 22-32 [facility] Comment on above: Performed By: #### B MP, GFR #### [address] [address] Creatinine [Mass/Vol] 1.50 mg/dL High 0.60-1.40 [facility] Comment on above: Result Comment: Test ing performed on [employer] analyzer using enzymatic creatinine methodology. Performed By: #### B MP, GFR #### [address] [address] Electrolyte Balance 8.0 mEq/L Normal 4.0-15.0 [facility] Comment on above: Performed By: #### B MP, GFR #### [facility] [address] [place] [address] Glucose [Mass/Vol] 129 mg/dL High 82-115 [facility] Comment on above: Performed By: #### B MP, GFR #### [facility] [address] [place] [address] Potassium [Moles/Vol] 3.8 mmol/L Normal 3.5-5.0 [facility] Comment on above: Performed By: #### B MP, GFR #### [facility] [address] [place] [address] Sodium [Moles/Vol] 135 mmol/L Low 136-145 [facility] Comment on above: Performed By: #### B MP, GFR #### [address] [address] Urea nitrogen [Mass/Vol] 21.0 mg/dL Normal 8.0-22.0 [facility] Comment on above: Performed By: #### B MP, GFR #### [address] [address] LABORATORYOrdered By: SYSTEM SYSTEM on 12-03-2024 Calcium [Mass/Vol] 9.2 mg/dL Normal 8.7 - 10. 4 mg/dL ADM SS Chloride [Moles/Vol] 102 mmol/L Normal 98 - 11 0 mEq/L AH ADM SS CO2 [Moles/Vol] 25 mmol/L Normal 22 - 32 mEq/L ADM SS Creatinine [Mass/Vol] 1.50 mg/dL High 0.60 - 1.40 mg/dL ADM SS Comment on above: Interpretive Data: T esting performed on [employer] analyzer using enzymatic creatinine methodology. Electrolyte Balance 8.0 mEq/L Normal 4.0 - 15 .0 mEq/L AH ADM SS Estimated Glomerular Filtration Rate 47 ml/min/1.73sqm Invalid Interpretation Code Chemistry S Comment on above: Interpretive Data: Stages of Chronic Kidney Disease (CKD) Stage Description eGFR(ml/min/1.73 sq.m.) CKD 1 Normal kidney function or >=90 normal kindney function with possible kidney damage (ex. Proteinuria) CKD 2 Kidney damage with mild loss 60-89 of kidney function CKD 3a Mild to moderate loss of kidney 45-59 function CKD 3b Moderate to severe loss of 30-44 of kindey function CKD 4 Severe loss of kidney function 15-29 CKD 5 Kidney failure <15 Note: (go live 2024) the eGFR calculation was updated to the 2020 CKD-EPI creatinine equation without a race factor to calculate the eGFR results. Glucose [Mass/Vol] 129 mg/dL High 82 - 115 mg/dL AH ADM SS Potassium [Moles/Vol] 3.8 mmol/L Normal 3.5 - 5.0 mEq/L AH ADM SS Sodium [Moles/Vol] 135 mmol/L Low 136 - 145 mEq/L AH ADM SS Urea nitrogen [Mass/Vol] 21.0 mg/dL Normal 8.0 - 22.0 mg/dL AH ADM SS Urea nitrogen/Creatinine [Mass ratio] 14.0 ratio Normal 10.0 - 22.0 ratio AH ADM SS ABO/Rh (Gel)on 12-02-2024 ABO/Rh Interp Negative Invalid Interpretation Code [facility] Comment on above: Performed By: #### F IB, PRO, APTT #### [address] [address] ABS (Gel)on 12-02-2024 ABSC Interp (Gel) Negative Normal [facility] Comment on above: Performed By: #### F IB, PRO, APTT #### [address] [address] APTTon 12-02-2024 aPTT Coag (Bld) [Time] 39.7 s High 25.0-35.0 [facility] Comment on above: Result Comment: For Heparin anticoagulation therapy, the recommended therapeutic range is: 54-77 seconds (APTT Correlation with Anti-Xa therapeutic range of 0.3-0.7 units/ml). PLEASE REFERENCE THE PHARMACY PROTOCOL FOR DOSING. Performed By: #### F IB, PRO, APTT #### [address] [address] FIBon 12-02-2024 Fibrinogen 572 mg/dL High 250-560 [facility] Comment on above: Performed By: #### F IB, PRO, APTT #### [address] [address] LABORATORYOrdered By: Adolph Dailey on 12-02-2024 ABO and Rh group Nom (Bld) Blood group A Rh(D) negative Invalid Interpretation Code BB Auto SS Blood group antibody screen Ql Negative ABSC (12/02/24 9:19 AM) Normal BB Auto SS LABORATORYOrdered By: SYSTEM SYSTEM on 12-02-2024 aPTT Coag (Bld) [Time] 39.7 s High 25.0 - 35.0 seconds [facility] Comment on above: Interpretive Data: F or Heparin anticoagulation therapy, the recommended therapeutic range is: 54-77 seconds (APTT Correlation with Anti-Xa therapeutic range of 0.3-0.7 units/ml). PLEASE REFERENCE THE PHARMACY PROTOCOL FOR DOSING. Fibrinogen 572 mg/dL High 250 - 560 mg/dL [facility] PT Coag (PPP) [Time] 14.0 s Normal 9.0 - 1 4.4 seconds [facility] Comment on above: Interpretive Data: E ffective 04/06/08, Protime results may be affected by some antibiotics (i.e. Ciprofloxacin, Azithromycin, Bactrim) which may potentiate the action of oral anticoagulants, with further increases in Protime/INR. PT International Ratio 1.2 ratio Invalid Interpretation Code [facility] Comment on above: Interpretive Data: [employer] (CHEST, 1991, 102:[id number]) recommended therapeutic range for oral anticoagulant therapy is: LOW RISK: Prophylaxis of venous thrombosis INR: 2.0-3.0 Treatment of pulmonary embolism 2.0-3.0 Prevention of systemic embolism 2.0-3.0 HIGH RISK: Mechanical prosthetic valves 2.5-3.5 PROon 12-02-2024 INR Coag (PPP) [Relative time] 1.2 {INR} Normal [facility] Comment on above: Result Comment: [employer] (CHEST, 1991, [id number]) recommended therapeutic range for oral anticoagulant therapy is: LOW RISK: Prophylaxis of venous thrombosis INR: 2.0-3.0 Treatment of pulmonary embolism 2.0-3.0 Prevention of systemic embolism 2.0-3.0 HIGH RISK: Mechanical prosthetic valves 2.5-3.5 Performed By: #### F IB, PRO, APTT #### [facility] [address] [place] [address] PT Coag (PPP) [Time] 14.0 s Normal 9.0-14.4 [facility] Comment on above: Result Comment: Effe ctive 04/06/08, Protime results may be affected by some antibiotics (i.e. Ciprofloxacin, Azithromycin, Bactrim) which may potentiate the action of oral anticoagulants, with further increases in Protime/INR. Performed By: #### F IB, PRO, APTT #### [address] [address] XR CHEST 1 VIEWon 12-02-2024 XR CHEST 1 VIEW ORIGINAL EXAMINATION: ONE XRAY VIEW OF THE CHEST 12/02/2024 12:43 pm COMPARISON: July 24, 2024 HISTORY: ORDERING SYSTEM PROVIDED HISTORY: Reason for Exam: SOB, chest pain. FINDINGS: The heart is normal in size and there is no vascular congestion present. No infiltrate or pleural fluid seen. No acute osseous finding. IMPRESSION: No acute process. Interpreted by: Shiv Moore MD Preliminary Report By: Shiv Moore MD Electronically signed By Shiv Moore MD Dictated Date: 12/02/2024 12:50:34 PM Prelim Date: 12/02/2024 12:50:57 PM Sign Date: 12/02/2024 12:50:57 PM Ordering Provider: FRANCIE Davis [facility] .Auto Diffon 11-25-2024 Basophil, Absolute 0.1 10 3/mcL Normal 0.0-0.3 [facility] Comment on above: Performed By: #### B MP, ANEU, CBC, ADIFF, GFR #### [address] [address] Basophils/100 WBC (Bld) 0.5 % Normal 0.0-2.5 [facility] Comment on above: Performed By: #### B MP, ANEU, CBC, ADIFF, GFR #### [address] [address] Eosinophil, Absolute 0.3 10 3/mcL Normal 0.0-0.7 [facility] Comment on above: Performed By: #### B MP, ANEU, CBC, ADIFF, GFR #### [address] [address] Eosinophils/100 WBC (Bld) 2.3 % Normal 0.0-6.0 [facility] Comment on above: Performed By: #### B MP, ANEU, CBC, ADIFF, GFR #### [address] [address] Lymphocyte, Absolute 2.1 10 3/mcL Normal 0.9-4.3 [facility] Comment on above: Performed By: #### B MP, ANEU, CBC, ADIFF, GFR #### [address] [address] Lymphocytes/100 WBC (Bld) 18.5 % Low 20.0-40.0 [facility] Comment on above: Performed By: #### B MP, ANEU, CBC, ADIFF, GFR #### [address] [address] Monocyte, Absolute 1.5 10 3/mcL High 0.1-1.4 [facility] Comment on above: Performed By: #### B MP, ANEU, CBC, ADIFF, GFR #### [address] [address] Monocytes/100 WBC (Bld) 13.2 % High 2.0-13.0 [facility] Comment on above: Performed By: #### B MP, ANEU, CBC, ADIFF, GFR #### [address] [address] Neutrophils/100 WBC (Bld) 65.5 % Normal 50.0-75.0 [facility] Comment on above: Performed By: #### B MP, ANEU, CBC, ADIFF, GFR #### [address] [address] .GFRon 11-25-2024 Estimated Glomerular Filtration Rate 60 ml/min/1.73sqm Normal [facility] Comment on above: Result Comment: Stages of Chronic Kidney Disease (CKD) Stage Description eGFR(ml/min/1.73 sq.m.) CKD 1 Normal kidney function or >=90 normal kindney function with possible kidney damage (ex. Proteinuria) CKD 2 Kidney damage with mild loss 60-89 of kidney function CKD 3a Mild to moderate loss of kidney 45-59 function CKD 3b Moderate to severe loss of 30-44 of kindey function CKD 4 Severe loss of kidney function 15-29 CKD 5 Kidney failure <15 Note: (go live 2024) the eGFR calculation was updated to the 2020 CKD-EPI creatinine equation without a race factor to calculate the eGFR results. Performed By: #### B MP, ANEU, CBC, ADIFF, GFR #### [address] [address] .NEUABSon 11-25-2024 Neutrophil, Absolute 7.6 10 3/mcL Normal 2.3-8.1 [facility] Comment on above: Performed By: #### B MP, ANEU, CBC, ADIFF, GFR #### [address] [address] BMPon 11-25-2024 BUN/Creatinine Ratio 12.2 ratio Normal 10.0-22.0 [facility] Comment on above: Performed By: #### B MP, ANEU, CBC, ADIFF, GFR #### [address] [address] Calcium [Mass/Vol] 10.6 mg/dL High 8.7-10.4 [facility] Comment on above: Performed By: #### B MP, ANEU, CBC, ADIFF, GFR #### [address] [address] Chloride [Moles/Vol] 100 mmol/L Normal 98-110 [facility] Comment on above: Performed By: #### B MP, ANEU, CBC, ADIFF, GFR #### [address] [address] CO2 [Moles/Vol] 33 mmol/L High 22-32 [facility] Comment on above: Performed By: #### B MP, ANEU, CBC, ADIFF, GFR #### [address] [address] Creatinine [Mass/Vol] 1.23 mg/dL Normal 0.60-1.40 [facility] Comment on above: Result Comment: Test ing performed on [employer] analyzer using enzymatic creatinine methodology. Performed By: #### B MP, ANEU, CBC, ADIFF, GFR #### [place] [id number] Electrolyte Balance 4.0 mEq/L Normal 4.0-15.0 [facility] Comment on above: Performed By: #### B MP, ANEU, CBC, ADIFF, GFR #### [address] [address] Glucose [Mass/Vol] 83 mg/dL Normal 82-115 [facility] Comment on above: Performed By: #### B MP, ANEU, CBC, ADIFF, GFR #### [place] [id number] Potassium [Moles/Vol] 4.4 mmol/L Normal 3.5-5.0 [facility] Comment on above: Performed By: #### B MP, ANEU, CBC, ADIFF, GFR #### [place] [address] Sodium [Moles/Vol] 137 mmol/L Normal 136-145 [facility] Comment on above: Performed By: #### B MP, ANEU, CBC, ADIFF, GFR #### [place] [address] Urea nitrogen [Mass/Vol] 15.0 mg/dL Normal 8.0-22.0 [facility] Comment on above: Performed By: #### B MP, ANEU, CBC, ADIFF, GFR #### [place] [id number] CBCon 11-25-2024 Erythrocyte distribution width (RBC) [Ratio] 14.1 % Normal 11.5-15.5 [facility] Comment on above: Performed By: #### B MP, ANEU, CBC, ADIFF, GFR #### [place] [id number] Hematocrit (Bld) [Volume fraction] 45.9 % Normal 40.0-52.0 [facility] Comment on above: Performed By: #### B MP, ANEU, CBC, ADIFF, GFR #### [address] [address] Hgb 16.0 G/dL Normal 13.0-17.5 [facility] Comment on above: Performed By: #### B MP, ANEU, CBC, ADIFF, GFR #### [place] [address] MCH (RBC) [Entitic mass] 32.0 pg Normal 27.0-33.0 [facility] Comment on above: Performed By: #### B MP, ANEU, CBC, ADIFF, GFR #### [place] [address] MCHC 34.9 G/dL Normal 32.0-36.0 [facility] Comment on above: Performed By: #### B MP, ANEU, CBC, ADIFF, GFR #### [place] [address] MCV (RBC) [Entitic vol] 91.8 fL Normal 81.0-100.0 [facility] Comment on above: Performed By: #### B MP, ANEU, CBC, ADIFF, GFR #### [place] [address] Platelet 201 10 3/mcL Normal 150-450 [facility] Comment on above: Performed By: #### B MP, ANEU, CBC, ADIFF, GFR #### [place] [address] Platelet mean volume (Bld) [Entitic vol] 9.3 fL Normal 6.4-10.5 [facility] Comment on above: Performed By: #### B MP, ANEU, CBC, ADIFF, GFR #### [place] [address] RBC 5.01 10 6/mcL Normal 4.50-6.00 [facility] Comment on above: Performed By: #### B MP, ANEU, CBC, ADIFF, GFR #### [place] [id number] WBC 11.6 10 3/mcL High 4.5-10.8 [facility] Comment on above: Performed By: #### B MP, ANEU, CBC, ADIFF, GFR #### [place] [id number] [place] [address] LABORATORYOrdered By: SYSTEM SYSTEM on 11-25-2024 Basophils (Bld) [#/Vol] 0.1 103/mcL Normal 0.0 - 0.3 10^3/mcL AH Workflow SS Basophils/100 WBC (Bld) 0.5 % Normal 0.0 - 2.5 % AH Workflow SS Calcium [Mass/Vol] 10.6 mg/dL High 8.7 - 10. 4 mg/dL AH ADM SS Chloride [Moles/Vol] 100 mmol/L Normal 98 - 11 0 mEq/L ADM SS CO2 [Moles/Vol] 33 mmol/L High 22 - 32 mEq/L AH ADM SS Creatinine [Mass/Vol] 1.23 mg/dL Normal 0.60 - 1.40 mg/dL AH ADM SS Comment on above: Interpretive Data: T esting performed on [employer] analyzer using enzymatic creatinine methodology. Electrolyte Balance 4.0 mEq/L Normal 4.0 - 15 .0 mEq/L ADM SS Eosinophils (Bld) [#/Vol] 0.3 103/mcL Normal 0. 0 - 0.7 10^3/mcL AH Workflow SS Eosinophils/100 WBC (Bld) 2.3 % Normal 0.0 - 6.0 % AH Workflow SS Erythrocyte distribution width (RBC) [Ratio] 14.1 % Normal 11.5 - 15.5 % AH Workflow SS Estimated Glomerular Filtration Rate 60 ml/min/1.73sqm Invalid Interpretation Code Chemistry S Comment on above: Interpretive Data: Stages of Chronic Kidney Disease (CKD) Stage Description eGFR(ml/min/1.73 sq.m.) CKD 1 Normal kidney function or >=90 normal kindney function with possible kidney damage (ex. Proteinuria) CKD 2 Kidney damage with mild loss 60-89 of kidney function CKD 3a Mild to moderate loss of kidney 45-59 function CKD 3b Moderate to severe loss of 30-44 of kindey function CKD 4 Severe loss of kidney function 15-29 CKD 5 Kidney failure <15 Note: (go live 2024) the eGFR calculation was updated to the 2020 CKD-EPI creatinine equation without a race factor to calculate the eGFR results. Glucose [Mass/Vol] 83 mg/dL Normal 82 - 115 mg/dL ADM SS Hematocrit (Bld) [Volume fraction] 45.9 % Normal 40.0 - 52.0 % AH Workflow SS Hemoglobin (Bld) [Mass/Vol] 16.0 G/dL Normal 13.0 - 17.5 G/dL AH Workflow SS Lymphocytes (Bld) [#/Vol] 2.1 103/mcL Normal 0. 9 - 4.3 10^3/mcL AH Workflow SS Lymphocytes/100 WBC (Bld) 18.5 % Low 20 .0 - 40.0 % AH Workflow SS MCH (RBC) [Entitic mass] 32.0 pg Normal 27. 0 - 33.0 pg AH Workflow SS MCHC 34.9 G/dL Normal 32.0 - 36.0 G/dL AH Workflow SS MCV (RBC) [Entitic vol] 91.8 fL Normal 81.0 - 100.0 fL AH Workflow SS Monocytes (Bld) [#/Vol] 1.5 103/mcL High 0.1 - 1.4 10^3/mcL AH Workflow SS Monocytes/100 WBC (Bld) 13.2 % High 2.0 - 13.0 % AH Workflow SS Neutrophils (Bld) [#/Vol] 7.6 103/mcL Normal 2. 3 - 8.1 10^3/mcL AH Workflow SS Neutrophils/100 WBC (Bld) 65.5 % Normal 50 .0 - 75.0 % AH Workflow SS Platelet mean volume (Bld) [Entitic vol] 9.3 fL Normal 6.4 - 10.5 fL AH Workflow SS Platelets (Bld) [#/Vol] 201 103/mcL Normal 150 - 450 10^3/mcL AH Workflow SS Potassium [Moles/Vol] 4.4 mmol/L Normal 3.5 - 5.0 mEq/L AH ADM SS RBC (Bld) [#/Vol] 5.01 106/mcL Normal 4.50 - 6.0 0 10^6/mcL AH Workflow SS Sodium [Moles/Vol] 137 mmol/L Normal 136 - 145 mEq/L AH ADM SS Urea nitrogen [Mass/Vol] 15.0 mg/dL Normal 8.0 - 22.0 mg/dL AH ADM SS Urea nitrogen/Creatinine [Mass ratio] 12.2 ratio Normal 10.0 - 22.0 ratio AH ADM SS WBC (Bld) [#/Vol] 11.6 103/mcL High 4.5 - 10.8 10^3/mcL AH Workflow SS LABORATORYOrdered By: Verenice Menchaca on 10-13-2024 Albumin DL <= 20 mg/L (U) [Mass/Vol] 505 mcg/dL Invalid Interpretation Code AO ADM SS Albumin/Creatinine DL <= 20 mg/L (U) [Mass ratio] 6 mcg/mg Normal 0 - 30 mcg/mg AO Chemistry S Creatinine (U) [Mass/Vol] 77.8 mg/dL Invali d Interpretation Code AO ADM SS MALBRon 10-13-2024 U Creatinine 77.8 mg/dL Normal [facility] Comment on above: Performed By: #### M DW, TROPHS, ADIFF, TSH, MG, ANEU, CBC, GFR, BMP, PBNP #### [address] [address] U Microalb 505 mcg/dL Normal [facility] Comment on above: Performed By: #### M DW, TROPHS, ADIFF, TSH, MG, ANEU, CBC, GFR, BMP, PBNP #### [address] [address] U Ratio Alb/Cre 6 mcg/mg Normal 0-30 [facility] Comment on above: Performed By: #### M DW, TROPHS, ADIFF, TSH, MG, ANEU, CBC, GFR, BMP, PBNP #### [address] [address] .Auto Diffon 07-24-2024 Basophil, Absolute 0.1 10 3/mcL Normal 0.0-0.2 [facility] Comment on above: Performed By: #### M DW, TROPHS, ADIFF, TSH, MG, ANEU, CBC, GFR, BMP, PBNP #### [address] [address] Basophils/100 WBC (Bld) 0.8 % Normal 0.0-2.5 [facility] Comment on above: Performed By: #### M DW, TROPHS, ADIFF, TSH, MG, ANEU, CBC, GFR, BMP, PBNP #### [address] [address] Eosinophil, Absolute 0.3 10 3/mcL Normal 0.0-0.7 [facility] Comment on above: Performed By: #### M DW, TROPHS, ADIFF, TSH, MG, ANEU, CBC, GFR, BMP, PBNP #### [address] [address] Eosinophils/100 WBC (Bld) 2.2 % Normal 0.0-7.0 [facility] Comment on above: Performed By: #### M DW, TROPHS, ADIFF, TSH, MG, ANEU, CBC, GFR, BMP, PBNP #### [address] [address] Lymphocyte, Absolute 1.8 10 3/mcL Normal 0.9-4.3 [facility] Comment on above: Performed By: #### M DW, TROPHS, ADIFF, TSH, MG, ANEU, CBC, GFR, BMP, PBNP #### [address] [address] Lymphocytes/100 WBC (Bld) 15.4 % Low 20.0-40.0 [facility] Comment on above: Performed By: #### M DW, TROPHS, ADIFF, TSH, MG, ANEU, CBC, GFR, BMP, PBNP #### [address] [address] Monocyte, Absolute 1.1 10 3/mcL Normal 0.1-1.4 [facility] Comment on above: Performed By: #### M DW, TROPHS, ADIFF, TSH, MG, ANEU, CBC, GFR, BMP, PBNP #### [address] [address] Monocytes/100 WBC (Bld) 9.2 % Normal 2.0-13.0 [facility] Comment on above: Performed By: #### M DW, TROPHS, ADIFF, TSH, MG, ANEU, CBC, GFR, BMP, PBNP #### [address] [address] Neutrophils/100 WBC (Bld) 72.4 % Normal 50.0-75.0 [facility] Comment on above: Performed By: #### M DW, TROPHS, ADIFF, TSH, MG, ANEU, CBC, GFR, BMP, PBNP #### [place] [address] [place], [place] [address] .GFRon 07-24-2024 GFR Non- 49 ml/min/1.73sqm [facility] Comment on above: Result Comment: GFR Population mean for , Non- Americans Ages 20-29 = 116 mL/min/1.73 sq.m. Ages 30-39 = 107 mL/min/1.73 sq.m. Ages 40-49 = 99 mL/min/1.73 sq.m. Ages 50-59 = 93 mL/min/1.73 sq.m. Ages 60-69 = 85 mL/min/1.73 sq.m. Ages 70+ = 75 mL/min/1.73 sq.m. Chronic Kidney Disease: Less than 60 mL/min/1.73 square meters End Stage Renal Disease: Less than 15 mL/min/1.73 square meters Performed By: #### M DW, TROPHS, ADIFF, TSH, MG, ANEU, CBC, GFR, BMP, PBNP #### [place] [address] [place], [place] [address] GFR 59 ml/min/1.73sqm [facility] Comment on above: Result Comment: GFR Population mean for , Non- Americans Ages 20-29 = 116 mL/min/1.73 sq.m. Ages 30-39 = 107 mL/min/1.73 sq.m. Ages 40-49 = 99 mL/min/1.73 sq.m. Ages 50-59 = 93 mL/min/1.73 sq.m. Ages 60-69 = 85 mL/min/1.73 sq.m. Ages 70+ = 75 mL/min/1.73 sq.m. Chronic Kidney Disease: Less than 60 mL/min/1.73 square meters End Stage Renal Disease: Less than 15 mL/min/1.73 square meters Performed By: #### M DW, TROPHS, ADIFF, TSH, MG, ANEU, CBC, GFR, BMP, PBNP #### [address] [address] .MDWon 07-24-2024 Monocyte Distribution Width 16.58 Normal 0.00-20.00 [facility] Comment on above: Result Comment: For ED adult patients suspected of sepsis, MDW<=20.0 does not rule out sepsis or risk of sepsis Performed By: #### M DW, TROPHS, ADIFF, TSH, MG, ANEU, CBC, GFR, BMP, PBNP #### [address] [address] .NEUABSon 07-24-2024 Neutrophil, Absolute 8.6 10 3/mcL High 2.3-8.1 [facility] Comment on above: Performed By: #### M DW, TROPHS, ADIFF, TSH, MG, ANEU, CBC, GFR, BMP, PBNP #### [address] [address] BMPon 07-24-2024 BUN/Creatinine Ratio 10 ratio Normal 7-27 [facility] Comment on above: Performed By: #### M DW, TROPHS, ADIFF, TSH, MG, ANEU, CBC, GFR, BMP, PBNP #### [address] [address] Calcium [Mass/Vol] 9.6 mg/dL Normal 8.4-10.2 [facility] Comment on above: Performed By: #### M DW, TROPHS, ADIFF, TSH, MG, ANEU, CBC, GFR, BMP, PBNP #### [address] [address] Chloride [Moles/Vol] 95 mmol/L Low 98-107 [facility] Comment on above: Performed By: #### M DW, TROPHS, ADIFF, TSH, MG, ANEU, CBC, GFR, BMP, PBNP #### [address] [address] CO2 [Moles/Vol] 32 mmol/L High 23-31 [facility] Comment on above: Performed By: #### M DW, TROPHS, ADIFF, TSH, MG, ANEU, CBC, GFR, BMP, PBNP #### [address] [address] Creatinine [Mass/Vol] 1.41 mg/dL High 0.70-1.30 [facility] Comment on above: Result Comment: Test ing performed on Siemens Dimension EXL analyzer using a modified kinetic Nolvia technique. Performed By: #### M DW, TROPHS, ADIFF, TSH, MG, ANEU, CBC, GFR, BMP, PBNP #### [address] [address] Electrolyte Balance 7.0 mEq/L Normal 4.0-15.0 [facility] Comment on above: Performed By: #### M DW, TROPHS, ADIFF, TSH, MG, ANEU, CBC, GFR, BMP, PBNP #### [address] [address] Glucose [Mass/Vol] 127 mg/dL High 83-110 [facility] Comment on above: Performed By: #### M DW, TROPHS, ADIFF, TSH, MG, ANEU, CBC, GFR, BMP, PBNP #### [address] [address] Potassium [Moles/Vol] 4.3 mmol/L Normal 3.5-5.1 [facility] Comment on above: Performed By: #### M DW, TROPHS, ADIFF, TSH, MG, ANEU, CBC, GFR, BMP, PBNP #### [address] [address] Sodium [Moles/Vol] 134 mmol/L Low 136-145 [facility] Comment on above: Performed By: #### M DW, TROPHS, ADIFF, TSH, MG, ANEU, CBC, GFR, BMP, PBNP #### [address] [address] Urea nitrogen [Mass/Vol] 14 mg/dL Normal 7-18 [facility] Comment on above: Performed By: #### M DW, TROPHS, ADIFF, TSH, MG, ANEU, CBC, GFR, BMP, PBNP #### [address] [address] CBCon 07-24-2024 Erythrocyte distribution width (RBC) [Ratio] 13.8 % Normal 11.5-15.5 [facility] Comment on above: Performed By: #### M DW, TROPHS, ADIFF, TSH, MG, ANEU, CBC, GFR, BMP, PBNP #### [address] [address] Hematocrit (Bld) [Volume fraction] 44.1 % Normal 40.0-52.0 [facility] Comment on above: Performed By: #### M DW, TROPHS, ADIFF, TSH, MG, ANEU, CBC, GFR, BMP, PBNP #### [address] [address] Hgb 15.3 G/dL Normal 13.0-17.5 [facility] Comment on above: Performed By: #### M DW, TROPHS, ADIFF, TSH, MG, ANEU, CBC, GFR, BMP, PBNP #### [address] [address] MCH (RBC) [Entitic mass] 32.8 pg Normal 27.0-33.0 [facility] Comment on above: Performed By: #### M DW, TROPHS, ADIFF, TSH, MG, ANEU, CBC, GFR, BMP, PBNP #### [address] [address] MCHC 34.7 G/dL Normal 32.0-36.0 [facility] Comment on above: Performed By: #### M DW, TROPHS, ADIFF, TSH, MG, ANEU, CBC, GFR, BMP, PBNP #### [address] [address] MCV (RBC) [Entitic vol] 94.4 fL Normal 81.0-100.0 [facility] Comment on above: Performed By: #### M DW, TROPHS, ADIFF, TSH, MG, ANEU, CBC, GFR, BMP, PBNP #### [address] [address] Platelet 190 10 3/mcL Normal 150-450 [facility] Comment on above: Performed By: #### M DW, TROPHS, ADIFF, TSH, MG, ANEU, CBC, GFR, BMP, PBNP #### [address] [address] Platelet mean volume (Bld) [Entitic vol] 8.9 fL Normal 6.4-10.5 [facility] Comment on above: Performed By: #### M DW, TROPHS, ADIFF, TSH, MG, ANEU, CBC, GFR, BMP, PBNP #### [address] [address] RBC 4.66 10 6/mcL Normal 4.50-6.00 [facility] Comment on above: Performed By: #### M DW, TROPHS, ADIFF, TSH, MG, ANEU, CBC, GFR, BMP, PBNP #### [address] [address] WBC 11.9 10 3/mcL High 4.5-10.8 [facility] Comment on above: Performed By: #### M DW, TROPHS, ADIFF, TSH, MG, ANEU, CBC, GFR, BMP, PBNP #### [address] [address] LABORATORYOrdered By: SYSTEM SYSTEM on 07-24-2024 Troponin I.cardiac DL <= 0.01 ng/mL [Mass/Vol] 12 ng/L Normal 0 - 76 ng/L AO ADM SS Comment on above: Interpretive Data: H igh Sensitive Troponin I Reference Ranges: Female: 0-51 ng/L Male: 0-76 ng/L Testing performed on [employer] using a homogeneous sandwich chemiluminescent immunoassay based on ASSIA technology. Basophils (Bld) [#/Vol] 0.1 103/mcL Normal 0.0 - 0.2 10^3/mcL AO Workflow SS Basophils/100 WBC (Bld) 0.8 % Normal 0.0 - 2.5 % AO Workflow SS Calcium [Mass/Vol] 9.6 mg/dL Normal 8.4 - 10. 2 mg/dL AO ADM SS Chloride [Moles/Vol] 95 mmol/L Low 98 - 10 7 mmol/L AO ADM SS CO2 [Moles/Vol] 32 mmol/L High 23 - 31 mmol/L AO ADM SS Creatinine [Mass/Vol] 1.41 mg/dL High 0.70 - 1.30 mg/dL AO ADM SS Comment on above: Interpretive Data: T esting performed on Siemens Dimension EXL analyzer using a modified kinetic Nolvia technique. Electrolyte Balance 7.0 mEq/L Normal 4.0 - 15 .0 mEq/L AO ADM SS Eosinophil, Absolute 0.3 103/mcL Normal 0.0 - 0 .7 10^3/mcL AO Workflow SS Eosinophils/100 WBC (Bld) 2.2 % Normal 0.0 - 7.0 % AO Workflow SS Erythrocyte distribution width (RBC) [Ratio] 13.8 % Normal 11.5 - 15.5 % AO Workflow SS GFR/1.73 sq M.predicted among blacks MDRD (S/P/Bld) [Vol rate/Area] 59 ml/min/1.73sqm Invalid Interpretation Code AO Chemistry S Comment on above: Interpretive Data: GFR Population mean for , Non- Americans Ages 20-29 = 116 mL/min/1.73 sq.m. Ages 30-39 = 107 mL/min/1.73 sq.m. Ages 40-49 = 99 mL/min/1.73 sq.m. Ages 50-59 = 93 mL/min/1.73 sq.m. Ages 60-69 = 85 mL/min/1.73 sq.m. Ages 70+ = 75 mL/min/1.73 sq.m. Chronic Kidney Disease: Less than 60 mL/min/1.73 square meters End Stage Renal Disease: Less than 15 mL/min/1.73 square meters GFR/1.73 sq M.predicted among non-blacks MDRD (S/P/Bld) [Vol rate/Area] 49 ml/min/1.73sqm Invalid Interpretation Code AO Chemistry S Comment on above: Interpretive Data: GFR Population mean for , Non- Americans Ages 20-29 = 116 mL/min/1.73 sq.m. Ages 30-39 = 107 mL/min/1.73 sq.m. Ages 40-49 = 99 mL/min/1.73 sq.m. Ages 50-59 = 93 mL/min/1.73 sq.m. Ages 60-69 = 85 mL/min/1.73 sq.m. Ages 70+ = 75 mL/min/1.73 sq.m. Chronic Kidney Disease: Less than 60 mL/min/1.73 square meters End Stage Renal Disease: Less than 15 mL/min/1.73 square meters Glucose [Mass/Vol] 127 mg/dL High 83 - 110 mg/dL AO ADM SS Hematocrit (Bld) [Volume fraction] 44.1 % Normal 40.0 - 52.0 % AO Workflow SS Hemoglobin (Bld) [Mass/Vol] 15.3 G/dL Normal 13.0 - 17.5 G/dL AO Workflow SS Lymphocytes (Bld) [#/Vol] 1.8 103/mcL Normal 0. 9 - 4.3 10^3/mcL AO Workflow SS Lymphocytes/100 WBC (Bld) 15.4 % Low 20 .0 - 40.0 % AO Workflow SS Magnesium [Mass/Vol] 2.0 mg/dL Normal 1.8 - 2 .4 mg/dL AO ADM SS MCH (RBC) [Entitic mass] 32.8 pg Normal 27. 0 - 33.0 pg AO Workflow SS MCHC 34.7 G/dL Normal 32.0 - 36.0 G/dL AO Workflow SS MCV (RBC) [Entitic vol] 94.4 fL Normal 81.0 - 100.0 fL AO Workflow SS Monocyte distribution width Auto (Bld) [Entitic vol] 16.58 1 Normal 0.00 - 20.00 AO Workflow SS Comment on above: Result Comment: For ED adult patients suspected of sepsis, MDW<=20.0 does not rule out sepsis or risk of sepsis Monocytes (Bld) [#/Vol] 1.1 103/mcL Normal 0.1 - 1.4 10^3/mcL AO Workflow SS Monocytes/100 WBC (Bld) 9.2 % Normal 2.0 - 13.0 % AO Workflow SS Natriuretic peptide.B prohormone N-Terminal [Mass/Vol] 221 pg/mL Normal 0 - 450 pg/mL AO ADM SS Comment on above: Interpretive Data: N T-proBNP results of less than 300 pg/mL effectively rules out acute congestive heart failure with 99% negative predictive value. Neutrophils (Bld) [#/Vol] 8.6 103/mcL High 2. 3 - 8.1 10^3/mcL AO Workflow SS Neutrophils/100 WBC (Bld) 72.4 % Normal 50 .0 - 75.0 % AO Workflow SS Platelet mean volume (Bld) [Entitic vol] 8.9 fL Normal 6.4 - 10.5 fL AO Workflow SS Platelets (Bld) [#/Vol] 190 103/mcL Normal 150 - 450 10^3/mcL AO Workflow SS Potassium [Moles/Vol] 4.3 mmol/L Normal 3.5 - 5.1 mmol/L AO ADM SS RBC (Bld) [#/Vol] 4.66 106/mcL Normal 4.50 - 6.0 0 10^6/mcL AO Workflow SS Sodium [Moles/Vol] 134 mmol/L Low 136 - 145 mmol/L AO ADM SS Troponin I.cardiac DL <= 0.01 ng/mL [Mass/Vol] 12 ng/L Normal 0 - 76 ng/L AO ADM SS Comment on above: Interpretive Data: H igh Sensitive Troponin I Reference Ranges: Female: 0-51 ng/L Male: 0-76 ng/L Testing performed on [employer] using a homogeneous sandwich chemiluminescent immunoassay based on [employer]IA technology. TSH Qn 1.54 m[IU]/L Normal 0.36 - 3.74 mcIU/mL AO ADM SS Urea nitrogen [Mass/Vol] 14 mg/dL Normal 7 - 18 mg/dL AO ADM SS Urea nitrogen/Creatinine [Mass ratio] 10 ratio Normal 7 - 27 ratio AO ADM SS WBC (Bld) [#/Vol] 11.9 103/mcL High 4.5 - 10.8 10^3/mcL AO Workflow SS MGon 07-24-2024 Magnesium [Mass/Vol] 2.0 mg/dL Normal 1.8-2.4 [facility] Comment on above: Performed By: #### M DW, JERSON, ISI, TSH, MG, ANEU, CBC, GFR, BMP, PBNP #### [place] [address] [place], [place] [address] PBNPon 07-24-2024 Natriuretic peptide B (Bld) [Mass/Vol] 221 pg/mL Normal 0-450 [facility] Comment on above: Result Comment: NT-p roBNP results of less than 300 pg/mL effectively rules out acute congestive heart failure with 99% negative predictive value. Performed By: #### M DW, TROPHS, ADIFF, TSH, MG, ANEU, CBC, GFR, BMP, PBNP #### [address] [address] [facility] High Sensitivity Troponin I 12 ng/L Normal 0-76 [facility] Comment on above: Result Comment: High Sensitive Troponin I Reference Ranges: Female: 0-51 ng/L Male: 0-76 ng/L Testing performed on [employer] using a homogeneous sandwich chemiluminescent immunoassay based on [employer] technology. Performed By: #### M DW, TROPHS, ADIFF, TSH, MG, ANEU, CBC, GFR, BMP, PBNP #### [place] [id number] High Sensitivity Troponin I 12 ng/L Normal 0-76 [facility] Comment on above: Result Comment: High Sensitive Troponin I Reference Ranges: Female: 0-51 ng/L Male: 0-76 ng/L Testing performed on [email or web address] using a homogeneous sandwich chemiluminescent immunoassay based on ASSIA technology. Performed By: #### M DW, TROPHS, ADIFF, TSH, MG, ANEU, CBC, GFR, BMP, PBNP #### [address] [address] TSHon 07-24-2024 TSH Qn 1.54 m[IU]/L Normal 0.36-3.74 [facility] Comment on above: Performed By: #### M DW, TROPHS, ADIFF, TSH, MG, ANEU, CBC, GFR, BMP, PBNP #### [address] [address] XR CHEST 1 VIEWon 07-24-2024 XR CHEST 1 VIEW ORIGINAL EXAMINATION: ONE XRAY VIEW OF THE CHEST07/24/2024 1:02 pm COMPARISON: 04/12/2024 HISTORY: ORDERING SYSTEM PROVIDED HISTORY: Reason for Exam: chest pain FINDINGS: The cardiomediastinal contours are normal. Vascular structures appear within normal limits. There is no consolidation. No pleural fluid or pneumothorax. No aggressive osseous lesions identified. IMPRESSION: No acute radiographic findings. Interpreted by: Spencer Bazzi MD Preliminary Report By: Spencer Bazzi MD Electronically signed By Spencer Bazzi MD Dictated Date: 07/24/2024 1:05:47 PM Prelim Date: 07/24/2024 1:06:21 PM Sign Date: 07/24/2024 1:06:21 PM Ordering Provider: FIFI GROSS [facility] MYOCARDIAL SPECT STRESS/R ESTon 04-29-2024 NM MYOCARDIAL SPECT STRESS/REST ORIGINAL NM MYOCARDIAL SPECT STRESS/REST CLINICAL STATEMENT:SOB, afib TECHNIQUE: Stress Protocol:Pan Time Exercised:5minutes Predicted Max HR:142 Max HR Achieved:123 Percent Max HR:86 Peak Systolic BP:180 Rate-Pressure product: 12838 Radiopharmaceutical( rest): Tc-99m Sestamibi IV Dose:10.5 mCi Radiopharmaceutical( stress): Tc-99m Sestamibi IV Dose:32.6 mCi SPECT acquisition:SPECT reconstruction and reorientation into short axis, vertical and horizontal long axis planes Quantitative LVEF assessment COMPARISON:None REPORT: SPECT perfusion images demonstrate homogeneous tracer uptake. No evidence of transient ischemic dilatation. Gated SPECT images demonstrate normal wall motion and wall thickening. End-diastolic volume is 78 mL. Ejection fraction is 63%. IMPRESSION: 1. Normal myocardial perfusion study. No ischemia or prior infarction. 2. Normal systolic function with ejection fraction of 63%. 3. No prior studies for comparison. Interpreted By: Dai Valderrama MD Preliminary Report By: Dai Valderrama MD Electronically Signed By: Dai Valderrama MD Dictated Date: 04/29/2024 10:50:03 PM Prelim Date: 04/29/2024 10:50:03 PM Sign Date: 04/29/2024 10:52:30 PM Ordering Provider:Elaine Cruz [facility] [place] ([place]) .GFRon 04-28-2024 GFR 64 ml/min/1.73sqm [facility] [place] ([place]) Comment on above: Result Comment: GFR Population mean for , Non- Americans Ages 20-29 = 116 mL/min/1.73 sq.m. Ages 30-39 = 107 mL/min/1.73 sq.m. Ages 40-49 = 99 mL/min/1.73 sq.m. Ages 50-59 = 93 mL/min/1.73 sq.m. Ages 60-69 = 85 mL/min/1.73 sq.m. Ages 70+ = 75 mL/min/1.73 sq.m. Chronic Kidney Disease: Less than 60 mL/min/1.73 square meters End Stage Renal Disease: Less than 15 mL/min/1.73 square meters Performed By: #### Chano MULLINS, BMP #### [address] [address] GFR Non- 53 ml/min/1.73sqm Normal [facility] ([place]) Comment on above: Result Comment: GFR Population mean for , Non- Americans Ages 20-29 = 116 mL/min/1.73 sq.m. Ages 30-39 = 107 mL/min/1.73 sq.m. Ages 40-49 = 99 mL/min/1.73 sq.m. Ages 50-59 = 93 mL/min/1.73 sq.m. Ages 60-69 = 85 mL/min/1.73 sq.m. Ages 70+ = 75 mL/min/1.73 sq.m. Chronic Kidney Disease: Less than 60 mL/min/1.73 square meters End Stage Renal Disease: Less than 15 mL/min/1.73 square meters Performed By: #### Chano MULLINS, BMP #### [address] [address] BMPon 04-28-2024 BUN/Creatinine Ratio 8 ratio Normal 7-27 [facility] ([place]) Comment on above: Performed By: #### Chano MULLINS, BMP #### [address] [address] Calcium [Mass/Vol] 9.0 mg/dL Normal 8.4-10.2 [facility] [facility] Comment on above: Performed By: #### Chano MULLINS, BMP #### [address] [address] Chloride [Moles/Vol] 97 mmol/L Low 98-107 [facility] ([place]) Comment on above: Performed By: #### Chano MULLINS, BMP #### [address] [address] CO2 [Moles/Vol] 32 mmol/L High 23-31 [facility] ([place]) Comment on above: Performed By: #### Chano MULLINS, BMP #### [address] [address] Creatinine [Mass/Vol] 1.31 mg/dL High 0.70-1.30 [facility] ([place]) Comment on above: Performed By: #### Chano MULLINS, BMP #### [address] [address] Electrolyte Balance 8.0 mEq/L Normal 4.0-15.0 [facility] ([place]) Comment on above: Performed By: #### Chano MULLINS, BMP #### [address] [address] Glucose [Mass/Vol] 98 mg/dL Normal 83-110 [facility] ([place]) Comment on above: Performed By: #### Chano MULLINS, BMP #### [address] [address] Potassium [Moles/Vol] 4.1 mmol/L Normal 3.5-5.1 [facility] ([place]) Comment on above: Performed By: #### Chano MULLINS, BMP #### [address] [address] Sodium [Moles/Vol] 137 mmol/L Normal 136-145 [facility] ([place]) Comment on above: Performed By: #### Chano MULLINS, BMP #### [address] [address] Urea nitrogen [Mass/Vol] 11 mg/dL Normal 7-18 [facility] ([place]) Comment on above: Performed By: #### Chano MULLINS, BMP #### [address] [address] .Auto Diffon 04-12-2024 Basophil, Absolute 0.1 10 3/mcL Normal 0.0-0.2 [facility] ([place]) Comment on above: Performed By: #### Chano MULLINS, BMP #### [address] [address] Basophils/100 WBC (Bld) 0.8 % Normal 0.0-2.5 A [facility] ([place]) Comment on above: Performed By: #### G FR, BMP #### [address] [address] Eosinophil, Absolute 0.3 10 3/mcL Normal 0.0-0.4 [facility] ([place]) Comment on above: Performed By: #### G FR, BMP #### [address] [address] Eosinophils/100 WBC (Bld) 2.5 % Normal 0.0-7.0 [facility] ([place]) Comment on above: Performed By: #### G FR, BMP #### [address] [address] Lymphocyte, Absolute 2.7 10 3/mcL Normal 0.8-3.9 [facility] ([place]) Comment on above: Performed By: #### G FR, BMP #### [address] [address] Lymphocytes/100 WBC (Bld) 22.6 % Normal 10.0-50.0 [facility] ([place]) Comment on above: Performed By: #### G FR, BMP #### [address] [address] Monocyte, Absolute 1.6 10 3/mcL High 0.2-1.0 [facility] ([place]) Comment on above: Performed By: #### G FR, BMP #### [address] [address] Monocytes/100 WBC (Bld) 13.8 % High 1.7-13.0 A [facility] ([place]) Comment on above: Performed By: #### G FR, BMP #### [address] [address] Neutrophils/100 WBC (Bld) 60.3 % Normal 37.0-80.0 [facility] ([place]) Comment on above: Performed By: #### G , BMP #### [place] [address] [address] .GFRon 04-12-2024 GFR 57 ml/min/1.73sqm Normal [facility] ([place]) Comment on above: Result Comment: GFR Population mean for , Non- Americans Ages 20-29 = 116 mL/min/1.73 sq.m. Ages 30-39 = 107 mL/min/1.73 sq.m. Ages 40-49 = 99 mL/min/1.73 sq.m. Ages 50-59 = 93 mL/min/1.73 sq.m. Ages 60-69 = 85 mL/min/1.73 sq.m. Ages 70+ = 75 mL/min/1.73 sq.m. Chronic Kidney Disease: Less than 60 mL/min/1.73 square meters End Stage Renal Disease: Less than 15 mL/min/1.73 square meters Performed By: #### Chano MULLINS, BMP #### [place] [address] [address] GFR Non- 47 ml/min/1.73sqm Normal [facility] ([place]) Comment on above: Result Comment: GFR Population mean for , Non- Americans Ages 20-29 = 116 mL/min/1.73 sq.m. Ages 30-39 = 107 mL/min/1.73 sq.m. Ages 40-49 = 99 mL/min/1.73 sq.m. Ages 50-59 = 93 mL/min/1.73 sq.m. Ages 60-69 = 85 mL/min/1.73 sq.m. Ages 70+ = 75 mL/min/1.73 sq.m. Chronic Kidney Disease: Less than 60 mL/min/1.73 square meters End Stage Renal Disease: Less than 15 mL/min/1.73 square meters Performed By: #### G FR, BMP #### [address] [address] .MDWon 04-12-2024 Monocyte Distribution Width 17.61 Normal 0.00-20.00 [facility] ([place]) Comment on above: Result Comment: For ED adult patients suspected of sepsis, MDW<=20.0 does not rule out sepsis or risk of sepsis Performed By: #### Chano MULLINS BMP #### [address] [address] .NEUABSon 04-12-2024 Neutrophil, Absolute 7.1 10 3/mcL High 2.9-6.2 [facility] ([place]) Comment on above: Performed By: #### Chano MULLINS, BMP #### [address] [address] BMPon 04-12-2024 BUN/Creatinine Ratio 10 ratio Normal 7-27 [facility] ([place]) Comment on above: Performed By: #### Chano MULLINS, BMP #### [address] [address] Calcium [Mass/Vol] 9.8 mg/dL Normal 8.4-10.2 [facility] ([place]) Comment on above: Performed By: #### Chano MULLINS, BMP #### [address] [address] Chloride [Moles/Vol] 102 mmol/L Normal 98-107 [facility] ([place]) Comment on above: Performed By: #### Chano MULLINS, BMP #### [address] [address] CO2 [Moles/Vol] 29 mmol/L Normal 23-31 [facility] ([place]) Comment on above: Performed By: #### Chano MULLINS, BMP #### [address] [address] Creatinine [Mass/Vol] 1.46 mg/dL High 0.70-1.30 [facility] ([place]) Comment on above: Performed By: #### Chano MULLINS, BMP #### [address] [address] Electrolyte Balance 8.0 mEq/L Normal 4.0-15.0 [facility] ([place]) Comment on above: Performed By: #### Chano MULLINS, BMP #### [address] [address] Glucose [Mass/Vol] 128 mg/dL High 83-110 [facility] ([place]) Comment on above: Performed By: #### Chano MULLINS, BMP #### [address] [address] Potassium [Moles/Vol] 3.6 mmol/L Normal 3.5-5.1 [facility] ([place]) Comment on above: Performed By: #### Chano MULLINS, BMP #### [address] [address] Sodium [Moles/Vol] 139 mmol/L Normal 136-145 [facility] ([place]) Comment on above: Performed By: #### Chano MULLINS, BMP #### [address] [address] Urea nitrogen [Mass/Vol] 15 mg/dL Normal 7-18 [facility] ([place]) Comment on above: Performed By: #### Chano MULLINS, BMP #### [address] [address] CBCon 04-12-2024 Erythrocyte distribution width (RBC) [Ratio] 14.6 % High 11.5-14.5 [facility] ([place]) Comment on above: Performed By: #### Chano MULLINS, BMP #### [address] [address] Hematocrit (Bld) [Volume fraction] 50.6 % Normal 42.0-52.0 [facility] ([place]) Comment on above: Performed By: #### Chano MULLINS, BMP #### [address] [address] Hgb 17.2 G/dL Normal 14.0-18.0 [facility] ([place]) Comment on above: Performed By: #### Chano MULLINS, BMP #### [address] [address] MCH (RBC) [Entitic mass] 31.7 pg High 27.0-31.2 [facility] ([place]) Comment on above: Performed By: #### Chano MULLINS, BMP #### [address] [address] MCHC 34.0 G/dL Normal 31.8-35.4 [facility] ([place]) Comment on above: Performed By: #### Chano MULLINS, BMP #### [address] [place], [place] [address] MCV (RBC) [Entitic vol] 93.2 fL Normal 80.0-94.0 A [facility] ([place]) Comment on above: Performed By: #### Chano MULLINS, BMP #### [address] [address] Platelet 178 10 3/mcL Normal 130-400 [facility] ([place]) Comment on above: Performed By: #### Chano MULLINS, BMP #### [address] [address] Platelet mean volume (Bld) [Entitic vol] 9.8 fL Normal 7.4-10.4 [facility] ([place]) Comment on above: Performed By: #### Chano MULLINS, BMP #### [address] [address] RBC 5.43 10 6/mcL Normal 4.04-6.13 [facility] ([place]) Comment on above: Performed By: #### Chano MULLINS, BMP #### [address] [address] WBC 11.8 10 3/mcL High 4.6-10.8 [facility] ([place]) Comment on above: Performed By: #### Chano MULLINS, BMP #### [address] [address] LABORATORYOrdered By: SYSTEM SYSTEM on 04-12-2024 Basophil, Absolute 0.1 103/mcL Normal 0.0 - 0.2 10^3/mcL AO Workflow SS Basophils/100 WBC (Bld) 0.8 % Normal 0.0 - 2.5 % AO Workflow SS Calcium [Mass/Vol] 9.8 mg/dL Normal 8.4 - 10. 2 mg/dL AO ADM SS Chloride [Moles/Vol] 102 mmol/L Normal 98 - 10 7 mmol/L AO ADM SS CO2 [Moles/Vol] 29 mmol/L Normal 23 - 31 mmol/L AO ADM SS Creatinine [Mass/Vol] 1.46 mg/dL High 0.70 - 1.30 mg/dL AO ADM SS Electrolyte Balance 8.0 mEq/L Normal 4.0 - 15 .0 mEq/L AO ADM SS Eosinophil, Absolute 0.3 103/mcL Normal 0.0 - 0 .4 10^3/mcL AO Workflow SS Eosinophils/100 WBC (Bld) 2.5 % Normal 0.0 - 7.0 % AO Workflow SS Erythrocyte distribution width (RBC) [Ratio] 14.6 % High 11.5 - 14.5 % AO Workflow SS GFR/1.73 sq M.predicted among blacks MDRD (S/P/Bld) [Vol rate/Area] 57 ml/min/1.73sqm Invalid Interpretation Code AO Chemistry S Comment on above: Interpretive Data: GFR Population mean for , Non- Americans Ages 20-29 = 116 mL/min/1.73 sq.m. Ages 30-39 = 107 mL/min/1.73 sq.m. Ages 40-49 = 99 mL/min/1.73 sq.m. Ages 50-59 = 93 mL/min/1.73 sq.m. Ages 60-69 = 85 mL/min/1.73 sq.m. Ages 70+ = 75 mL/min/1.73 sq.m. Chronic Kidney Disease: Less than 60 mL/min/1.73 square meters End Stage Renal Disease: Less than 15 mL/min/1.73 square meters GFR/1.73 sq M.predicted among non-blacks MDRD (S/P/Bld) [Vol rate/Area] 47 ml/min/1.73sqm Invalid Interpretation Code AO Chemistry S Comment on above: Interpretive Data: GFR Population mean for , Non- Americans Ages 20-29 = 116 mL/min/1.73 sq.m. Ages 30-39 = 107 mL/min/1.73 sq.m. Ages 40-49 = 99 mL/min/1.73 sq.m. Ages 50-59 = 93 mL/min/1.73 sq.m. Ages 60-69 = 85 mL/min/1.73 sq.m. Ages 70+ = 75 mL/min/1.73 sq.m. Chronic Kidney Disease: Less than 60 mL/min/1.73 square meters End Stage Renal Disease: Less than 15 mL/min/1.73 square meters Glucose [Mass/Vol] 128 mg/dL High 83 - 110 mg/dL AO ADM SS Hematocrit (Bld) [Volume fraction] 50.6 % Normal 42.0 - 52.0 % AO Workflow SS Hemoglobin (Bld) [Mass/Vol] 17.2 G/dL Normal 14.0 - 18.0 G/dL AO Workflow SS Lymphocyte, Absolute 2.7 103/mcL Normal 0.8 - 3 .9 10^3/mcL AO Workflow SS Lymphocytes/100 WBC (Bld) 22.6 % Normal 10 .0 - 50.0 % AO Workflow SS MCH (RBC) [Entitic mass] 31.7 pg High 27. 0 - 31.2 pg AO Workflow SS MCHC 34.0 G/dL Normal 31.8 - 35.4 G/dL AO Workflow SS MCV (RBC) [Entitic vol] 93.2 fL Normal 80.0 - 94.0 fL AO Workflow SS Monocyte distribution width Auto (Bld) [Entitic vol] 17.61 1 Normal 0.00 - 20.00 AO Workflow SS Comment on above: Result Comment: For ED adult patients suspected of sepsis, MDW<=20.0 does not rule out sepsis or risk of sepsis Monocyte, Absolute 1.6 103/mcL High 0.2 - 1.0 10^3/mcL AO Workflow SS Monocytes/100 WBC (Bld) 13.8 % High 1.7 - 13.0 % AO Workflow SS Neutrophil, Absolute 7.1 103/mcL High 2.9 - 6 .2 10^3/mcL AO Workflow SS Neutrophils/100 WBC (Bld) 60.3 % Normal 37 .0 - 80.0 % AO Workflow SS Platelet mean volume (Bld) [Entitic vol] 9.8 fL Normal 7.4 - 10.4 fL AO Workflow SS Platelets (Bld) [#/Vol] 178 103/mcL Normal 130 - 400 10^3/mcL AO Workflow SS Potassium [Moles/Vol] 3.6 mmol/L Normal 3.5 - 5.1 mmol/L AO ADM SS RBC (Bld) [#/Vol] 5.43 106/mcL Normal 4.04 - 6.1 3 10^6/mcL AO Workflow SS Sodium [Moles/Vol] 139 mmol/L Normal 136 - 145 mmol/L AO ADM SS Troponin I.cardiac DL <= 0.01 ng/mL [Mass/Vol] 44 ng/L Normal 0 - 76 ng/L AO ADM SS Comment on above: Interpretive Data: H igh Sensitive Troponin I Reference Ranges: Female: 0-51 ng/L Male: 0-76 ng/L Testing performed on Dimension EXL using a homogeneous sandwich chemiluminescent immunoassay based on ASSIA technology. TSH Qn 2.09 m[IU]/L Normal 0.36 - 3.74 mcIU/mL AO ADM SS Urea nitrogen [Mass/Vol] 15 mg/dL Normal 7 - 18 mg/dL AO ADM SS Urea nitrogen/Creatinine [Mass ratio] 10 ratio Normal 7 - 27 ratio AO ADM SS WBC (Bld) [#/Vol] 11.8 103/mcL High 4.6 - 10.8 10^3/mcL AO Workflow SS TROPHSon 04-12-2024 High Sensitivity Troponin I 44 ng/L Normal 0-76 [facility] ([place]) Comment on above: Result Comment: High Sensitive Troponin I Reference Ranges: Female: 0-51 ng/L Male: 0-76 ng/L Testing performed on Dimension EXL using a homogeneous sandwich chemiluminescent immunoassay based on ASSIA technology. Performed By: #### G , [facility] #### [address] [address] TSHon 04-12-2024 TSH Qn 2.09 m[IU]/L Normal 0.36-3.74 [facility] ([place]) Comment on above: Performed By: #### T #### [address] [address] XR CHEST 1 VIEWon 04-12-2024 XR CHEST 1 VIEW ORIGINAL EXAMINATION: ONE XRAY VIEW OF THE CHEST04/12/2024 5:54 am CHEST ONE VIEW AP/PA COMPARISON: None HISTORY: ORDERING SYSTEM PROVIDED HISTORY: Reason for Exam: chest pain FINDINGS: The cardiomediastinal silhouette is normal in appearance. No consolidation, pleural effusion, or vascular congestion is seen. The osseous structures are intact. IMPRESSION: No acute findings. Interpreted by: Deep Narvaez MD Preliminary Report By: Deep Narvaez MD Electronically signed By Deep Narvaez MD Dictated Date: 04/12/2024 6:12:52 AM Prelim Date: 04/12/2024 6:13:05 AM Sign Date: 04/12/2024 6:13:05 AM Ordering Provider: RYAN PERES Normal [facility] ([place]) PSA,Total- Diagnosticon 02-21 PSA, DIAGNOSTIC 6.64 ng/mL High 0.0-4.0 [facility] Comment on above: Result Comment: This test was performed using the TPSA assay method for the [employer] chemistry system. Values obtained with different assay methods cannot be used interchangably. When changing PSA assays in the course of monitoring a patient, additional sequential testing should be carried out to confirm baseline values. Performed By: #### L [phone] #### [facility] [address] [place], [address] .GFRon 11-25-2023 GFR 53 ml/min/1.73sqm Normal [facility] ([place]) Comment on above: Result Comment: GFR Population mean for , Non- Americans Ages 20-29 = 116 mL/min/1.73 sq.m. Ages 30-39 = 107 mL/min/1.73 sq.m. Ages 40-49 = 99 mL/min/1.73 sq.m. Ages 50-59 = 93 mL/min/1.73 sq.m. Ages 60-69 = 85 mL/min/1.73 sq.m. Ages 70+ = 75 mL/min/1.73 sq.m. Chronic Kidney Disease: Less than 60 mL/min/1.73 square meters End Stage Renal Disease: Less than 15 mL/min/1.73 square meters Performed By: #### C MP, GFR, LIPID, VIDH, TSH #### [place] [address] [address] GFR Non- 44 ml/min/1.73sqm Normal [facility] ([place]) Comment on above: Result Comment: GFR Population mean for , Non- Americans Ages 20-29 = 116 mL/min/1.73 sq.m. Ages 30-39 = 107 mL/min/1.73 sq.m. Ages 40-49 = 99 mL/min/1.73 sq.m. Ages 50-59 = 93 mL/min/1.73 sq.m. Ages 60-69 = 85 mL/min/1.73 sq.m. Ages 70+ = 75 mL/min/1.73 sq.m. Chronic Kidney Disease: Less than 60 mL/min/1.73 square meters End Stage Renal Disease: Less than 15 mL/min/1.73 square meters Performed By: #### C MP, GFR, LIPID, VIDH, TSH #### [address] [address] CMPon 11-25-2023 Albumin Level 3.5 G/dL Normal 3.4-4.8 [facility] ([place]) Comment on above: Performed By: #### C MP, GFR, LIPID, VIDH, TSH #### [address] [address] Albumin/Globulin [Mass ratio] 1.1 {ratio} Normal 1.1-2.5 [facility] ([place]) Comment on above: Performed By: #### C MP, GFR, LIPID, VIDH, TSH #### [address] [address] ALP [Catalytic activity/Vol] 80 U/L Normal 40-135 [facility] ([place]) Comment on above: Performed By: #### C MP, GFR, LIPID, VIDH, TSH #### [address] [address] ALT [Catalytic activity/Vol] 49 U/L Normal 16-63 [facility] ([place]) Comment on above: Performed By: #### C MP, GFR, LIPID, VIDH, TSH #### [address] [address] AST [Catalytic activity/Vol] 37 U/L Normal 10-40 [facility] ([place]) Comment on above: Performed By: #### C MP, GFR, LIPID, VIDH, TSH #### [address] [address] Bili Total 0.9 mg/dL Normal 0.2-1.0 [facility] ([place]) Comment on above: Result Comment: Use of this assay is not recommended for patients undergoing treatment with eltrombopag due to the potential for falsely elevated results. Performed By: #### C MP, GFR, LIPID, VIDH, TSH #### [address] [address] BUN/Creatinine Ratio 10 ratio Normal 7-27 [facility] ([place]) Comment on above: Performed By: #### C MP, GFR, LIPID, VIDH, TSH #### [address] [address] Calcium [Mass/Vol] 8.9 mg/dL Normal 8.4-10.2 [facility] ([place]) Comment on above: Performed By: #### C MP, GFR, LIPID, VIDH, TSH #### [address] [address] Chloride [Moles/Vol] 105 mmol/L Normal 98-107 [facility] ([place]) Comment on above: Performed By: #### C MP, GFR, LIPID, VIDH, TSH #### [address] [address] CO2 [Moles/Vol] 30 mmol/L Normal 23-31 [facility] ([place]) Comment on above: Performed By: #### C MP, GFR, LIPID, VIDH, TSH #### [address] [address] Creatinine [Mass/Vol] 1.54 mg/dL High 0.70-1.30 [facility] ([place]) Comment on above: Performed By: #### C MP, GFR, LIPID, VIDH, TSH #### [address] [address] Electrolyte Balance 6.0 mEq/L Normal 4.0-15.0 [facility] ([place]) Comment on above: Performed By: #### C MP, GFR, LIPID, VIDH, TSH #### [address] [address] Globulin 3.1 G/dL Normal [facility] ([place]) Comment on above: Performed By: #### C MP, GFR, LIPID, VIDH, TSH #### [address] [address] Glucose [Mass/Vol] 113 mg/dL High 83-110 [facility] ([place]) Comment on above: Performed By: #### C MP, GFR, LIPID, VIDH, TSH #### [address] [address] Potassium [Moles/Vol] 4.5 mmol/L Normal 3.5-5.1 [facility] ([place]) Comment on above: Performed By: #### C MP, GFR, LIPID, VIDH, TSH #### [address] [address] Sodium [Moles/Vol] 141 mmol/L Normal 136-145 [facility]) Comment on above: Performed By: #### C MP, GFR, LIPID, VIDH, TSH #### [address] [address] Total Protein 6.6 G/dL Normal 6.4-8.2 [facility] ([place]) Comment on above: Performed By: #### C MP, GFR, LIPID, VIDH, TSH #### [address] [address] Urea nitrogen [Mass/Vol] 16 mg/dL Normal 7-18 [facility]) Comment on above: Performed By: #### C MP, GFR, LIPID, VIDH, TSH #### [address] [address] LABORATORYOrdered By: SYSTEM SYSTEM on 11-25-2023 25-hydroxyvitamin D3 [Mass/Vol] 39.0 ng/mL Invalid Interpretation Code AO ADM SS Comment on above: Interpretive Data: I nterpretive Values Based on Total 25(OH) Vitamin D: Deficient <20 ng/mL Insufficient 20 - <30 ng/mL Sufficient 30-100 ng/mL Albumin BCP dye [Mass/Vol] 3.5 G/dL Normal 3.4 - 4.8 G/dL AO ADM SS Albumin/Globulin [Mass ratio] 1.1 {ratio} Normal 1.1 - 2.5 ratio AO ADM SS ALP [Catalytic activity/Vol] 80 U/L Normal 40 - 135 U/L AO ADM SS ALT With P-5'-P [Catalytic activity/Vol] 49 U/L Normal 16 - 63 U/L AO ADM SS AST With P-5'-P [Catalytic activity/Vol] 37 U/L Normal 10 - 40 U/L AO ADM SS Bilirubin [Mass/Vol] 0.9 mg/dL Normal 0.2 - 1 .0 mg/dL AO ADM SS Comment on above: Interpretive Data: U se of this assay is not recommended for patients undergoing treatment with eltrombopag due to the potential for falsely elevated results. Calcium [Mass/Vol] 8.9 mg/dL Normal 8.4 - 10. 2 mg/dL AO ADM SS Chloride [Moles/Vol] 105 mmol/L Normal 98 - 10 7 mmol/L AO ADM SS CO2 [Moles/Vol] 30 mmol/L Normal 23 - 31 mmol/L AO ADM SS Creatinine [Mass/Vol] 1.54 mg/dL High 0.70 - 1.30 mg/dL AO ADM SS Electrolyte Balance 6.0 mEq/L Normal 4.0 - 15 .0 mEq/L AO ADM SS GFR/1.73 sq M.predicted among blacks MDRD (S/P/Bld) [Vol rate/Area] 53 ml/min/1.73sqm Invalid Interpretation Code AO Chemistry S Comment on above: Interpretive Data: GFR Population mean for , Non- Americans Ages 20-29 = 116 mL/min/1.73 sq.m. Ages 30-39 = 107 mL/min/1.73 sq.m. Ages 40-49 = 99 mL/min/1.73 sq.m. Ages 50-59 = 93 mL/min/1.73 sq.m. Ages 60-69 = 85 mL/min/1.73 sq.m. Ages 70+ = 75 mL/min/1.73 sq.m. Chronic Kidney Disease: Less than 60 mL/min/1.73 square meters End Stage Renal Disease: Less than 15 mL/min/1.73 square meters GFR/1.73 sq M.predicted among non-blacks MDRD (S/P/Bld) [Vol rate/Area] 44 ml/min/1.73sqm Invalid Interpretation Code AO Chemistry S Comment on above: Interpretive Data: GFR Population mean for , Non- Americans Ages 20-29 = 116 mL/min/1.73 sq.m. Ages 30-39 = 107 mL/min/1.73 sq.m. Ages 40-49 = 99 mL/min/1.73 sq.m. Ages 50-59 = 93 mL/min/1.73 sq.m. Ages 60-69 = 85 mL/min/1.73 sq.m. Ages 70+ = 75 mL/min/1.73 sq.m. Chronic Kidney Disease: Less than 60 mL/min/1.73 square meters End Stage Renal Disease: Less than 15 mL/min/1.73 square meters Globulin 3.1 G/dL Invalid Interpretation Code AO ADM SS Glucose [Mass/Vol] 113 mg/dL High 83 - 110 mg/dL AO ADM SS Potassium [Moles/Vol] 4.5 mmol/L Normal 3.5 - 5.1 mmol/L AO ADM SS Protein [Mass/Vol] 6.6 G/dL Normal 6.4 - 8.2 G/dL AO ADM SS Sodium [Moles/Vol] 141 mmol/L Normal 136 - 145 mmol/L AO ADM SS TSH Qn 1.73 m[IU]/L Normal 0.36 - 3.74 mcIU/mL AO ADM SS Urea nitrogen [Mass/Vol] 16 mg/dL Normal 7 - 18 mg/dL AO ADM SS Urea nitrogen/Creatinine [Mass ratio] 10 ratio Normal 7 - 27 ratio AO ADM SS LABORATORYOrdered By: Nikole Gil on 11-25-2023 Cholesterol [Mass/Vol] 150 mg/dL Normal 0 - 2 00 mg/dL AO ADM SS Comment on above: Interpretive Data: C holesterol Reference Interval: Less than 200 Desirable 200-239 Borderline high risk 240 and above High risk Cholesterol in HDL [Mass/Vol] 47 mg/dL Normal 40 - 60 mg/dL AO ADM SS Cholesterol in LDL [Mass/Vol] 79 mg/dL Normal 0 - 130 mg/dL AO ADM SS Triglyceride [Mass/Vol] 122 mg/dL Normal 0 - 150 mg/dL AO ADM SS Comment on above: Interpretive Data: T riglyceride Reference Interval: Less than 150 Normal 150-199 Borderline high risk 200-499 High risk 500 or higher Very high risk LIPIDon 11-25-2023 Cholesterol [Mass/Vol] 150 mg/dL Normal 0-200 [facility] ([place]) Comment on above: Result Comment: Chol esterol Reference Interval: Less than 200 Desirable 200-239 Borderline high risk 240 and above High risk Performed By: #### C MP, GFR, LIPID, VIDH, TSH #### [address] [address] Cholesterol in HDL [Mass/Vol] 47 mg/dL Normal 40-60 [facility] ([place]) Comment on above: Performed By: #### C MP, GFR, LIPID, VIDH, TSH #### [address] [address] Cholesterol in LDL [Mass/Vol] 79 mg/dL Normal 0-130 [facility] ([place]) Comment on above: Performed By: #### C MP, GFR, LIPID, VIDH, TSH #### [address] [address] Triglyceride [Mass/Vol] 122 mg/dL Normal 0-150 A [facility] ([place]) Comment on above: Result Comment: Trig lyceride Reference Interval: Less than 150 Normal 150-199 Borderline high risk 200-499 High risk 500 or higher Very high risk Performed By: #### C MP, GFR, LIPID, VIDH, TSH #### [address] [address] TSHon 11-25-2023 TSH Qn 1.73 m[IU]/L Normal 0.36-3.74 [facility] ([place]) Comment on above: Performed By: #### C MP, GFR, LIPID, VIDH, TSH #### [address] [address] VIDHon 11-25-2023 Vit. D 25-Hydroxy 39.0 ng/mL Normal [facility] ([place]) Comment on above: Result Comment: Inte rpretive Values Based on Total 25(OH) Vitamin D: Deficient <20 ng/mL Insufficient 20 - <30 ng/mL Sufficient 30-100 ng/mL Performed By: #### C MP, GFR, LIPID, VIDH, TSH #### [address] [address] LABORATORYOrdered By: Verenice Menchaca on 10-24-2023 Albumin DL <= 20 mg/L (U) [Mass/Vol] 358 mcg/dL Invalid Interpretation Code AO ADM SS Albumin/Creatinine DL <= 20 mg/L (U) [Mass ratio] 6 mcg/mg Normal 0 - 30 mcg/mg AO ADM SS Creatinine (U) [Mass/Vol] 61.8 mg/dL Normal 39 .0 - 259.0 mg/dL AO ADM SS MALBRon 10-24-2023 U Creatinine 61.8 mg/dL Normal 39.0-259.0 [facility] ([place]) Comment on above: Performed By: #### M ALBR #### [address] [address] U Microalb 358 mcg/dL Normal [facility] ([place]) Comment on above: Performed By: #### M ALBR #### [address] [address] U Ratio Alb/Cre 6 mcg/mg Normal 0-30 [facility] ([place]) Comment on above: Performed By: #### M ALBR #### [address] [address] No Panel InformationOrdered By: Clarke Jasso on 09-02-2023 Prostate Specific Antigen Total 6.87 ng/mL 0.0-4.0 [facility] Comment on above: This test was perfor med using the TPSA assay method for [facility]. Values obtained with differentassay methods cannot be used interchangably.When changing PSA assays in the course of monitoring apatient, additional sequential testing should be carriedout to confirm baseline values. .GFRon 07-26-2023 GFR Non- 49 ml/min/1.73sqm Normal [facility] ([place]) Comment on above: Result Comment: GFR Population mean for , Non- Americans Ages 20-29 = 116 mL/min/1.73 sq.m. Ages 30-39 = 107 mL/min/1.73 sq.m. Ages 40-49 = 99 mL/min/1.73 sq.m. Ages 50-59 = 93 mL/min/1.73 sq.m. Ages 60-69 = 85 mL/min/1.73 sq.m. Ages 70+ = 75 mL/min/1.73 sq.m. Chronic Kidney Disease: Less than 60 mL/min/1.73 square meters End Stage Renal Disease: Less than 15 mL/min/1.73 square meters Performed By: #### Chano MULLINS, BMP #### [address] [address] GFR 60 ml/min/1.73sqm Normal [facility] ([place]) Comment on above: Result Comment: GFR Population mean for , Non- Americans Ages 20-29 = 116 mL/min/1.73 sq.m. Ages 30-39 = 107 mL/min/1.73 sq.m. Ages 40-49 = 99 mL/min/1.73 sq.m. Ages 50-59 = 93 mL/min/1.73 sq.m. Ages 60-69 = 85 mL/min/1.73 sq.m. Ages 70+ = 75 mL/min/1.73 sq.m. Chronic Kidney Disease: Less than 60 mL/min/1.73 square meters End Stage Renal Disease: Less than 15 mL/min/1.73 square meters Performed By: #### Chano MULLINS, BMP #### [address] [address] CMPon 07-26-2023 Albumin Level 3.8 G/dL Normal 3.4-4.8 [facility] ([place]) Comment on above: Performed By: #### Chano MULLINS, BMP #### [address] [address] Albumin/Globulin [Mass ratio] 1.1 {ratio} Normal 1.1-2.5 [facility] ([place]) Comment on above: Performed By: #### Chano MULLINS, BMP #### [address] [address] ALP [Catalytic activity/Vol] 76 U/L Normal 40-135 [facility] ([place]) Comment on above: Performed By: #### G FR, BMP #### [address] [address] ALT [Catalytic activity/Vol] 44 U/L Normal 16-63 [facility] ([place]) Comment on above: Performed By: #### G FR, BMP #### [address] [address] AST [Catalytic activity/Vol] 31 U/L Normal 10-40 [facility] ([place]) Comment on above: Performed By: #### G , BMP #### [address] [address] Bili Total 1.2 mg/dL High 0.2-1.0 [facility] ([place]) Comment on above: Result Comment: Use of this assay is not recommended for patients undergoing treatment with eltrombopag due to the potential for falsely elevated results. Performed By: #### Chano MULLINS, BMP #### [address] [address] BUN/Creatinine Ratio 10 ratio Normal 7-27 [facility] ([place]) Comment on above: Performed By: #### G , BMP #### [address] [address] Calcium [Mass/Vol] 9.4 mg/dL Normal 8.4-10.2 [facility] ([place]) Comment on above: Performed By: #### Chano MULLINS, BMP #### [address] [address] Chloride [Moles/Vol] 105 mmol/L Normal 98-107 [facility] ([place]) Comment on above: Performed By: #### G FR, BMP #### [address] [address] CO2 [Moles/Vol] 27 mmol/L Normal 23-31 [facility] ([place]) Comment on above: Performed By: #### G FR, BMP #### [address] [address] Creatinine [Mass/Vol] 1.40 mg/dL High 0.70-1.30 [facility] ([place]) Comment on above: Performed By: #### G , BMP #### [address] [address] Electrolyte Balance 7.0 mEq/L Normal 4.0-15.0 [facility] ([place]) Comment on above: Performed By: #### G FR, BMP #### [address] [address] Globulin 3.4 G/dL Normal [facility] ([place]) Comment on above: Performed By: #### G , BMP #### [address] [address] Glucose [Mass/Vol] 101 mg/dL Normal 83-110 [facility] ([place]) Comment on above: Performed By: #### G , BMP #### [address] [address] Potassium [Moles/Vol] 4.6 mmol/L Normal 3.5-5.1 [facility] ([place]) Comment on above: Performed By: #### G , BMP #### [address] [address] Sodium [Moles/Vol] 139 mmol/L Normal 136-145 [facility] ([place]) Comment on above: Performed By: #### G , BMP #### [address] [address] Total Protein 7.2 G/dL Normal 6.4-8.2 [facility] ([place]) Comment on above: Performed By: #### G FR, BMP #### [address] [address] Urea nitrogen [Mass/Vol] 14 mg/dL Normal 7-18 [facility] ([place]) Comment on above: Performed By: #### G , BMP #### [address] [address] VIDHon 07-26-2023 Vit. D 25-Hydroxy 41.7 ng/mL Normal [facility] ([place]) Comment on above: Result Comment: Inte rpretive Values Based on Total 25(OH) Vitamin D: Deficient <20 ng/mL Insufficient 20 - <30 ng/mL Sufficient 30-100 ng/mL Performed By: #### G , FRANK #### [address] [place], [place] [address] No Panel Informationon 08-21 Prostate Specific Antigen Total 8.08 ng/mL 0.0-4.0 [facility] Work Phone: Comment on above: This test was perfor med using the TPSA assay method for [employer] chemistry system. Values obtained with differentassay methods cannot be used interchangably.When changing PSA assays in the course of monitoring apatient, additional sequential testing should be carriedout to confirm baseline values. LABORATORYOrdered By: Nikole Gil on 06-09-2022 Albumin BCP dye [Mass/Vol] 3.7 G/dL Invalid Interpretation Code 3.4 - 4.8 G/dL AO ADM SS Albumin/Globulin [Mass ratio] 1.2 {ratio} Invalid Interpretation Code 1.1 - 2.5 ratio AO ADM SS ALP [Catalytic activity/Vol] 74 U/L Invalid Interpretation Code 40 - 135 U/L AO ADM SS ALT With P-5'-P [Catalytic activity/Vol] 43 U/L Invalid Interpretation Code 16 - 63 U/L AO ADM SS AST With P-5'-P [Catalytic activity/Vol] 27 U/L Invalid Interpretation Code 10 - 40 U/L AO ADM SS Bilirubin [Mass/Vol] 1.3 mg/dL Invalid Interpretation Code 0.2 - 1.0 mg/dL AO ADM SS Calcium [Mass/Vol] 8.7 mg/dL Invalid Interpretation Code 8.4 - 10.2 mg/dL AO ADM SS Chloride [Moles/Vol] 102 mmol/L Invalid Interpretation Code 98 - 107 mmol/L AO ADM SS Cholesterol [Mass/Vol] 146 mg/dL Invalid Interpretation Code 0 - 200 mg/dL AO ADM SS Cholesterol in HDL [Mass/Vol] 46 mg/dL Invalid Interpretation Code 40 - 60 mg/dL AO ADM SS Cholesterol in LDL [Mass/Vol] 80 mg/dL Invalid Interpretation Code 0 - 130 mg/dL AO ADM SS CO2 [Moles/Vol] 27 mmol/L Invalid Interpretation Code 23 - 31 mmol/L AO ADM SS Creatinine [Mass/Vol] 1.37 mg/dL Invalid Interpretation Code 0.70 - 1.30 mg/dL AO ADM SS Electrolyte Balance 8.0 mEq/L Invalid Interpretation Code 4.0 - 15.0 mEq/L AO ADM SS Globulin 3.1 G/dL Invalid Interpretation Code AO ADM SS Glucose [Mass/Vol] 103 mg/dL Invalid Interpretation Code 83 - 110 mg/dL AO ADM SS Potassium [Moles/Vol] 4.0 mmol/L Invalid Interpretation Code 3.5 - 5.1 mmol/L AO ADM SS Protein [Mass/Vol] 6.8 G/dL Invalid Interpretation Code 6.4 - 8.2 G/dL AO ADM SS Sodium [Moles/Vol] 137 mmol/L Invalid Interpretation Code 136 - 145 mmol/L AO ADM SS Triglyceride [Mass/Vol] 101 mg/dL Invalid Interpretation Code 0 - 150 mg/dL AO ADM SS Urea nitrogen [Mass/Vol] 23 mg/dL Invalid Interpretation Code 7 - 18 mg/dL AO ADM SS Urea nitrogen/Creatinine [Mass ratio] 17 ratio Invalid Interpretation Code 7 - 27 ratio AO ADM SS LABORATORYOrdered By: SYSTEM SYSTEM on 06-09-2022 GFR 61 ml/min/1.73sqm Invalid Interpretation Code AO Chemistry S GFR Non- 51 ml/min/1.73sqm Inval id Interpretation Code AO Chemistry S LABORATORYOrdered By: Ashley Vickers on 01-05-2022 Albumin BCP dye [Mass/Vol] 3.9 G/dL Invalid Interpretation Code 3.4 - 4.8 G/dL AO ADM SS Albumin/Globulin [Mass ratio] 1.2 {ratio} Invalid Interpretation Code 1.1 - 2.5 ratio AO ADM SS ALP [Catalytic activity/Vol] 66 U/L Invalid Interpretation Code 40 - 135 U/L AO ADM SS ALT With P-5'-P [Catalytic activity/Vol] 35 U/L Invalid Interpretation Code 16 - 63 U/L AO ADM SS AST With P-5'-P [Catalytic activity/Vol] 32 U/L Invalid Interpretation Code 10 - 40 U/L AO ADM SS Bilirubin [Mass/Vol] 1.1 mg/dL Invalid Interpretation Code 0.2 - 1.0 mg/dL AO ADM SS Calcium [Mass/Vol] 9.7 mg/dL Invalid Interpretation Code 8.4 - 10.2 mg/dL AO ADM SS Chloride [Moles/Vol] 101 mmol/L Invalid Interpretation Code 98 - 107 mmol/L AO ADM SS Cholesterol [Mass/Vol] 240 mg/dL Invalid Interpretation Code 0 - 200 mg/dL AO ADM SS Cholesterol in HDL [Mass/Vol] 45 mg/dL Invalid Interpretation Code 40 - 60 mg/dL AO ADM SS Cholesterol in LDL [Mass/Vol] 160 mg/dL Invalid Interpretation Code 0 - 130 mg/dL AO ADM SS CO2 [Moles/Vol] 28 mmol/L Invalid Interpretation Code 23 - 31 mmol/L AO ADM SS Creatinine [Mass/Vol] 1.46 mg/dL Invalid Interpretation Code 0.70 - 1.30 mg/dL AO ADM SS Electrolyte Balance 10.0 mEq/L Invalid Interpretation Code 4.0 - 15.0 mEq/L AO ADM SS Globulin 3.3 G/dL Invalid Interpretation Code AO ADM SS Glucose [Mass/Vol] 100 mg/dL Invalid Interpretation Code 83 - 110 mg/dL AO ADM SS Potassium [Moles/Vol] 4.6 mmol/L Invalid Interpretation Code 3.5 - 5.1 mmol/L AO ADM SS Prostate specific Ag [Mass/Vol] 7.03 ng/mL Invalid Interpretation Code 0.00 - 4.00 ng/mL AO ADM SS Protein [Mass/Vol] 7.2 G/dL Invalid Interpretation Code 6.4 - 8.2 G/dL AO ADM SS Sodium [Moles/Vol] 139 mmol/L Invalid Interpretation Code 136 - 145 mmol/L AO ADM SS Triglyceride [Mass/Vol] 176 mg/dL Invalid Interpretation Code 0 - 150 mg/dL AO ADM SS TSH Qn 1.41 m[IU]/L Invalid Interpretation Code 0.36 - 3.74 mcIU/mL AO ADM SS Urea nitrogen [Mass/Vol] 22 mg/dL Invalid Interpretation Code 7 - 18 mg/dL AO ADM SS Urea nitrogen/Creatinine [Mass ratio] 15 ratio Invalid Interpretation Code 7 - 27 ratio AO ADM SS LABORATORYOrdered By: SYSTEM SYSTEM on 01-05-2022 GFR 57 ml/min/1.73sqm Invalid Interpretation Code AO Chemistry S GFR Non- 47 ml/min/1.73sqm Inval id Interpretation Code AO Chemistry S LABORATORYOrdered By: Carrie Smith on 01-05-2022 Hep C Ab Non-Reactive (01/05/22 7:41 AM) Invalid Interpretation Code Non-Reactiv e AH ADM SS Hep C Ab Int Nonreactive: Samples with a value < 0.80 are considered nonreactive (negative) for antibodies to HCV.A negative test result does not exclude the possibility of exposure to or infection with HCV. HCV antibodies may be undetectable in some stages of the infection and in some clinical conditions. Invalid Interpretation Code Chemistry S LABORATORYOrdered By: Petr Muhammad on 07-10-2021 Albumin BCP dye [Mass/Vol] 3.7 G/dL Invalid Interpretation Code 3.4 - 4.8 G/dL AO ADM SS Albumin/Globulin [Mass ratio] 1.1 {ratio} Invalid Interpretation Code 1.1 - 2.5 ratio AO ADM SS ALP [Catalytic activity/Vol] 74 U/L Invalid Interpretation Code 40 - 135 U/L AO ADM SS ALT With P-5'-P [Catalytic activity/Vol] 37 U/L Invalid Interpretation Code 16 - 63 U/L AO ADM SS AST With P-5'-P [Catalytic activity/Vol] 28 U/L Invalid Interpretation Code 10 - 40 U/L AO ADM SS Bilirubin [Mass/Vol] 1.0 mg/dL Invalid Interpretation Code 0.2 - 1.0 mg/dL AO ADM SS Calcium [Mass/Vol] 9.5 mg/dL Invalid Interpretation Code 8.4 - 10.2 mg/dL AO ADM SS Chloride [Moles/Vol] 102 mmol/L Invalid Interpretation Code 98 - 107 mmol/L AO ADM SS CO2 [Moles/Vol] 31 mmol/L Invalid Interpretation Code 23 - 31 mmol/L AO ADM SS Creatinine [Mass/Vol] 1.39 mg/dL Invalid Interpretation Code 0.70 - 1.30 mg/dL AO ADM SS Electrolyte Balance 4.0 mEq/L Invalid Interpretation Code AO ADM SS Globulin 3.5 G/dL Invalid Interpretation Code AO ADM SS Glucose [Mass/Vol] 95 mg/dL Invalid Interpretation Code 83 - 110 mg/dL AO ADM SS Potassium [Moles/Vol] 4.8 mmol/L Invalid Interpretation Code 3.5 - 5.1 mmol/L AO ADM SS Protein [Mass/Vol] 7.2 G/dL Invalid Interpretation Code 6.4 - 8.2 G/dL AO ADM SS Sodium [Moles/Vol] 137 mmol/L Invalid Interpretation Code 136 - 145 mmol/L AO ADM SS Urea nitrogen [Mass/Vol] 17 mg/dL Invalid Interpretation Code 7 - 18 mg/dL AO ADM SS Urea nitrogen/Creatinine [Mass ratio] 12 ratio Invalid Interpretation Code 7 - 27 ratio AO ADM SS LABORATORYOrdered By: SYSTEM SYSTEM on 07-10-2021 GFR 60 ml/min/1.73sqm Invalid Interpretation Code AO Chemistry S GFR Non- 50 ml/min/1.73sqm Inval id Interpretation Code AO Chemistry S DRUG TOX MONITORING 4 W/CONF , URINEon 03-10-2021 Alphahydroxyalprazolam 94 ng/mL High <25 [facility] Comment on above: Order Comment: FASTI NG: UNKNOWN Result Comment: See Note 1 Performed By: #### 9 1484 #### [facility] [place] [address] [employer]mospheric Sciences Professor: Balaji Rouse MD Alphahydroxymidazolam Negative Normal <[address] [facility] Comment on above: Order Comment: FASTI NG: UNKNOWN Result Comment: See Note 1 Performed By: #### 9 1484 #### [facility] [address], [address] [place] [address] Atmospheric Sciences Professor: Balaji Rouse MD Alphahydroxytriazolam Negative Normal <[address] [facility] Comment on above: Order Comment: FASTI NG: UNKNOWN Result Comment: See Note 1 Performed By: #### 9 1484 #### [facility] [place] [address] [employer]heric [employer] Professor: Balaji Rouse MD Aminoclonazepam Negative Normal <25 [facility] Comment on above: Order Comment: FASTI NG: UNKNOWN Result Comment: See Note 1 Performed By: #### 9 1484 #### [facility] [place] [address] [employer]heric [employer] Professor: Balaji Rouse MD Amphetamines Negative Normal <500 [facility] Comment on above: Order Comment: FASTI NG: UNKNOWN Performed By: #### 9 1484 #### [facility] [address], [address] [place] [address] [employer]mospheric Sciences Professor: Balaji Rouse MD Barbiturates Negative Normal <300 [facility] Comment on above: Order Comment: FASTI NG: UNKNOWN Performed By: #### 9 1484 #### [facility] [place] [address] [employer]heric [employer] Professor: Balaji Rouse MD Benzodiazepines Positive Abnormal <100 [facility] Comment on above: Order Comment: FASTI NG: UNKNOWN Performed By: #### 9 1484 #### [facility] [place] [address] [employer]mospheric Sciences Professor: Balaji Rouse MD Buprenorphine Negative Normal <5 [facility] Comment on above: Order Comment: FASTI NG: UNKNOWN Performed By: #### 9 1484 #### [facility] [place] [address] [employer]heric [employer] Professor: Balaji Rouse MD Cocaine Metabolite Negative Normal <150 [facility] Comment on above: Order Comment: FASTI NG: UNKNOWN Performed By: #### 9 1484 #### [facility] [place] [address] [employer]mospheric Sciences Professor: Balaji Rouse MD COMMENT Normal [facility] Comment on above: Order Comment: FASTI NG: UNKNOWN Result Comment: See Note 2 Note 1 This test was developed and its analytical performance characteristics have been determined by [employer]. It has not been cleared or approved by the FDA. This assay has been validated pursuant to the CLIA regulations and is used for clinical purposes. Note 2 This drug testing is for medical treatment only. Analysis was performed as non-forensic testing and these results should be used only by healthcare providers to render diagnosis or treatment, or to monitor progress of medical conditions. For assistance with interpreting these drug results, please contact a [employer] Toxicology Specialist: [phone] ( ), M-F, 8am-6pm EST. Performed By: #### 9 1484 #### [facility] [place] [address] [employer]mospheric Sciences Professor: Balaji Rouse MD Heroin Metabolite Negative Normal <10 [facility] Comment on above: Order Comment: FASTI NG: UNKNOWN Performed By: #### 9 1484 #### [facility] of [address], [address] [place] [address] Atmospheric Sciences Professor: Balaji Rouse MD Hydroxyethylflurazepam Negative Normal <50 [facility] Comment on above: Order Comment: FASTI NG: UNKNOWN Result Comment: See Note 1 Performed By: #### 9 1484 #### [facility] of [address], [address] [place] [address] [employer]mospheric Sciences Professor: Balaji Rouse MD Lorazepam Negative Normal <50 [facility] Comment on above: Order Comment: FASTI NG: UNKNOWN Result Comment: See Note 1 Performed By: #### 9 1484 #### [facility] of [address], [address] [place] [address] [employer]mospheric Sciences Professor: Balaji Rouse MD Marijuana Metabolite 20 Negative Normal <20 [facility] Comment on above: Order Comment: FASTI NG: UNKNOWN Performed By: #### 9 1484 #### [facility] of [address], [address] [place] [address] [employer]mospheric Sciences Professor: Balaji Rouse MD Methadone Metabolite Negative Normal <100 [facility] Comment on above: Order Comment: FASTI NG: UNKNOWN Performed By: #### 9 1484 #### [facility] of [place] [address] [employer]mospheric Sciences Professor: Balaji Rouse MD Nordiazepam Negative Normal <50 [facility] Comment on above: Order Comment: FASTI NG: UNKNOWN Result Comment: See Note 1 Performed By: #### 9 1484 #### [facility] of [place] [address] [employer]mospheric Sciences Professor: Balaji Rouse MD Opiates Negative Normal <100 [facility] Comment on above: Order Comment: FASTI NG: UNKNOWN Performed By: #### 9 1484 #### [facility] of [address], [address] [place] [address] [employer]mospheric Sciences Professor: Balaji Rouse MD Oxazepam Negative Normal <50 [facility] Comment on above: Order Comment: FASTI NG: UNKNOWN Result Comment: See Note 1 Performed By: #### 9 1484 #### [facility] [address], [address] [place] [address] [employer]mospheric Sciences Professor: Balaji Rouse MD Oxycodone Negative Normal <100 [facility] Comment on above: Order Comment: FASTI NG: UNKNOWN Performed By: #### 9 1484 #### [facility] [address], [address] [place] [address] [employer]mospheric Sciences Professor: Balaji Rouse MD Phencyclidine Negative Normal <25 [facility] Comment on above: Order Comment: FASTI NG: UNKNOWN Performed By: #### 9 1484 #### [facility] [place] [address] [employer] Professor: Balaji Rouse MD Temazepam Negative Normal <50 [facility] Comment on above: Order Comment: FASTI NG: UNKNOWN Result Comment: See Note 1 Performed By: #### 9 1484 #### [facility] [address], [address] [place] [address] [employer]mospheric Sciences Professor: Balaji Rouse MD DRUG TOX MONITORING 4 W/ , URINE 08-26-2020 Alphahydroxyalprazolam 170 ng/mL High <25 [facility] Comment on above: Order Comment: FASTI NG: UNKNOWN Result Comment: See Note 1 Performed By: #### 9 1484 #### [facility] , [address] [place] [address] [employer]mospheric Sciences Professor: Balaji Rouse MD Alphahydroxymidazolam Negative Normal <[address] [facility] Comment on above: Order Comment: FASTI NG: UNKNOWN Result Comment: See Note 1 Performed By: #### 9 1484 #### [facility] , [address] [place] [address] [employer]mospheric Sciences Professor: Balaji Rouse MD Alphahydroxytriazolam Negative Normal <[address] [facility] Comment on above: Order Comment: FASTI NG: UNKNOWN Result Comment: See Note 1 Performed By: #### 9 1484 #### [facility]-[address], [address] [place] [address] [employer]mospheric Sciences Professor: Balaji Rouse MD Aminoclonazepam Negative Normal <25 [facility] Comment on above: Order Comment: FASTI NG: UNKNOWN Result Comment: See Note 1 Performed By: #### 9 1484 #### [facility]-[place] [address], [address] [place] [address] [employer]mospheric Sciences Professor: Balaji Rouse MD Amphetamines Negative Normal <500 [facility] Comment on above: Order Comment: FASTI NG: UNKNOWN Performed By: #### 9 1484 #### [facility] [address], [address] [place] [address] [employer]mospheric Sciences Professor: Balaji Rouse MD Barbiturates Negative Normal <300 [facility] Comment on above: Order Comment: FASTI NG: UNKNOWN Performed By: #### 9 1484 #### [facility]-[place] [address], [address] [place] [address] [employer]mospheric Sciences Professor: Balaji Rouse MD Benzodiazepines Positive Abnormal <100 [facility] Comment on above: Order Comment: FASTI NG: UNKNOWN Performed By: #### 9 1484 #### [facility] [address], [address] [place] [address] [employer]mospheric Sciences Professor: Balaji Rouse MD Buprenorphine Negative Normal <5 [facility] Comment on above: Order Comment: FASTI NG: UNKNOWN Performed By: #### 9 1484 #### [facility] [address], [address] [place] [address] [employer]mospheric Sciences Professor: Balaji Rouse MD Cocaine Metabolite Negative Normal <150 [facility] Comment on above: Order Comment: FASTI NG: UNKNOWN Performed By: #### 9 1484 #### [facility] [address], [address] [place] [address] Atmospheric Sciences Professor: Balaji Rouse MD COMMENT Normal [facility] Comment on above: Order Comment: FASTI NG: UNKNOWN Result Comment: See Note 2 Note 1 This test was developed and its analytical performance characteristics have been determined by [employer]. It has not been cleared or approved by the FDA. This assay has been validated pursuant to the CLIA regulations and is used for clinical purposes. Note 2 This drug testing is for medical treatment only. Analysis was performed as non-forensic testing and these results should be used only by healthcare providers to render diagnosis or treatment, or to monitor progress of medical conditions. For assistance with interpreting these drug results, please contact a [employer] Toxicology Specialist: [phone] ( ), M-F, 8am-6pm EST. Performed By: #### 9 1484 #### [facility] [address], [address] [place] [address] Atmospheric Sciences Professor: Balaji Rouse MD Heroin Metabolite Negative Normal <10 [facility] Comment on above: Order Comment: FASTI NG: UNKNOWN Performed By: #### 9 1484 #### [facility] [address], [address] [place] [address] Atmospheric Sciences Professor: Balaji Rouse MD Hydroxyethylflurazepam Negative Normal <50 [facility] Comment on above: Order Comment: FASTI NG: UNKNOWN Result Comment: See Note 1 Performed By: #### 9 1484 #### [facility] [address], [address] [place] [address] Atmospheric Sciences Professor: Balaji Rouse MD Lorazepam Negative Normal <50 [facility] Comment on above: Order Comment: FASTI NG: UNKNOWN Result Comment: See Note 1 Performed By: #### 9 1484 #### [facility] [place] [id number] [place] [address] [employer]mospheric Sciences Professor: Balaji Rouse MD Marijuana Metabolite 20 Negative Normal <20 [facility] Comment on above: Order Comment: FASTI NG: UNKNOWN Performed By: #### 9 1484 #### [facility] [address], [address] [place] [address] Atmospheric Sciences Professor: Balaji Rouse MD Methadone Metabolite Negative Normal <100 [facility] Comment on above: Order Comment: FASTI NG: UNKNOWN Performed By: #### 9 1484 #### [facility] [address], [address] [place] [address] [employer]mospheric Sciences Professor: Balaji Rouse MD Nordiazepam Negative Normal <50 [facility] Comment on above: Order Comment: FASTI NG: UNKNOWN Result Comment: See Note 1 Performed By: #### 9 1484 #### [facility] [address] [address] , [address] [place] [address] Atmospheric Sciences Professor: Balaji Rouse MD Opiates Negative Normal <100 [facility] Comment on above: Order Comment: FASTI NG: UNKNOWN Performed By: #### 9 1484 #### [facility] [address] [address] [place] [address] Atmospheric Sciences Professor: Balaji Rouse MD Oxazepam Negative Normal <50 [facility] Comment on above: Order Comment: FASTI NG: UNKNOWN Result Comment: See Note 1 Performed By: #### 9 1484 #### [facility] [address] [address] [place] [address] [employer]mospheric Sciences Professor: Balaji Rouse MD Oxycodone Negative Normal <100 [facility] Comment on above: Order Comment: FASTI NG: UNKNOWN Performed By: #### 9 1484 #### [facility] [address] [address] , [address] [place] [address] Atmospheric Sciences Professor: Balaji Rouse MD Phencyclidine Negative Normal <25 [facility] Comment on above: Order Comment: FASTI NG: UNKNOWN Performed By: #### 9 1484 #### [facility] [address] [address] [place] [address] [employer]mospheric Sciences Professor: Balaji Rouse MD Temazepam Negative Normal <50 [facility] Comment on above: Order Comment: FASTI NG: UNKNOWN Result Comment: See Note 1 Performed By: #### 9 1484 #### [facility] [address] [address] [place] [address] [employer]mospheric Sciences Professor: Balaji Rouse MD Vital Signs Date Time Vital Sign Value Performing Clinician Manny sanchez 12-03-2024 06:50-0400 Heart rate 96 /min BARRY IRBY MD [facility] 12-03-2024 06:50-0400 Respiratory rate 18 /min BARRY IRBY MD [facility] 12-03-2024 04:15-0400 Body temperature 98.06 [degF] BARRY IRBY MD [address] [place] [address] 12-03-2024 04:15-0400 Diastolic Blood Pressure Non-Invasive 64 mm[Hg] BARRY IRBY MD [address] [place] [address] 12-03-2024 04:15-0400 Heart rate 96 /min BARRY IRBY MD [address] [place] [address] 12-03-2024 04:15-0400 Respiratory rate 18 /min BARRY IRBY MD [address] [place] [address] 12-03-2024 04:15-0400 Systolic Blood Pressure Non-Invasive 120 mm[Hg] BARRY IRBY MD [address] [place] [address] 12-03-2024 02:23-0400 Heart rate 91 /min BARRY IRBY MD [address] [place] [address] 12-03-2024 01:06-0400 Heart rate 93 /min BARRY IRBY MD [address] [place] [address] 12-02-2024 20:02-0400 Body temperature 97.7 [degF] BARRY IRBY MD [address] [place] [address] 12-02-2024 20:02-0400 Diastolic Blood Pressure Non-Invasive 80 mm[Hg] BARRY IRBY MD [address] [place] [address] 12-02-2024 20:02-0400 Respiratory rate 18 /min BARRY IRBY MD [address] [place] [address] 12-02-2024 20:02-0400 Systolic Blood Pressure Non-Invasive 143 mm[Hg] BARRY IRBY MD [address] [place] [address] 12-02-2024 16:51-0400 Diastolic Blood Pressure Non-Invasive 81 mm[Hg] BARRY IRBY MD [address] [place] [address] 12-02-2024 16:51-0400 Heart rate 97 /min BARRY IRBY MD [address] [place] [address] 12-02-2024 16:51-0400 Systolic Blood Pressure Non-Invasive 132 mm[Hg] BARRY IRBY MD [address] [place] [address] 12-02-2024 11:43-0400 Body temperature 96.8 [degF] BARRY IRBY MD [address] [place] [address] 12-02-2024 11:35-0400 Respiratory Rate - Anes 0 br/min BARRY IRBY MD [address] [place] [address] 12-02-2024 11:30-0400 Respiratory Rate - Anes 15 br/min BARRY IRBY MD [address] [place] [address] 12-02-2024 11:25-0400 Respiratory Rate - Anes 10 br/min BARRY IRBY MD [address] [place] [address] 12-02-2024 11:20-0400 Body temperature 96.73 [degF] BARRY IRBY MD [address] [place] [address] 12-02-2024 11:15-0400 Body temperature 96.96 [degF] BARRY IRBY MD [address] [place] [address] 12-02-2024 11:10-0400 Body temperature 97.02 [degF] BARRY IRBY MD [address] [place] [address] 12-02-2024 09:00-0400 Body height 172.7 cm BARRY IRBY MD [address] [place] [address] 12-02-2024 09:00-0400 Body temperature 97.52 [degF] BARRY IRBY MD [address] [place] [address] 12-02-2024 09:00-0400 Body weight 93.7 kg BARRY IRBY MD [address] [place] [address] 12-02-2024 09:00-0400 Heart rate 80 /min BARRY IRBY MD [address] [place] [address] 11-25-2024 13:45-0500 Blood Pressure Cuff Size BARRY IRBY MD [address] [place] [address] 11-25-2024 13:45-0500 Blood Pressure Location BARRY IRBY MD [address] [place] [address] 11-25-2024 13:45-0500 Blood Pressure Method BARRY IRBY MD [address] [place] [address] 11-25-2024 13:45-0500 Diastolic Blood Pressure Non-Invasive 80 mm[Hg] BARRY IRBY MD [address] [place] [address] 11-25-2024 13:45-0500 Systolic Blood Pressure Non-Invasive 178 mm[Hg] BARRY IRBY MD [address] [place] [address] 11-25-2024 12:55-0500 Blood Pressure Cuff Size BARRY IRBY MD [address] [place] [address] 11-25-2024 12:55-0500 Blood Pressure Location BARRY IRBY MD [address] [place] [address] 11-25-2024 12:55-0500 Blood Pressure Method BARRY IRBY MD [address] [place] [address] 11-25-2024 12:55-0500 Body height 172.7 cm BARRY IRBY MD [address] [place] [address] 11-25-2024 12:55-0500 Body temperature 97.7 [degF] BARRY IRBY MD [address] [place] [address] 11-25-2024 12:55-0500 Body weight 95.1 kg BARRY IRBY MD [address] [place] [address] 11-25-2024 12:55-0500 Body weight 31.89 kg/m2 BARRY IRBY MD [address] [place] [address] 11-25-2024 12:55-0500 Diastolic Blood Pressure Non-Invasive 96 mm[Hg] BARRY IRBY MD [address] [place] [address] 11-25-2024 12:55-0500 Heart rate 73 /min BARRY IRBY MD [address] [place] [address] 11-25-2024 12:55-0500 Systolic Blood Pressure Non-Invasive 180 mm[Hg] BARRY IRBY MD [address] [place] [address] 07-24-2024 14:05-0400 Blood Pressure Location FIFI GROSS DO [facility] 07-24-2024 14:05-0400 Blood Pressure Method FIFI GROSS DO [facility] 07-24-2024 14:05-0400 Diastolic Blood Pressure Non-Invasive 85 mm[Hg] FIFI GROSS DO [facility] 07-24-2024 14:05-0400 Heart rate 75 /min FIFIGEORGIANA GROSS DO [facility] 07-24-2024 14:05-0400 Respiratory rate 16 /min FIFI GROSS DO [facility] 07-24-2024 14:05-0400 Systolic Blood Pressure Non-Invasive 156 mm[Hg] FIFI GROSS DO [facility] 07-24-2024 13:03-0400 Blood Pressure Location FIFI GROSS DO [facility] 07-24-2024 13:03-0400 Blood Pressure Method FIFI GROSS DO [facility] 07-24-2024 13:03-0400 Diastolic Blood Pressure Non-Invasive 95 mm[Hg] FIFI GROSS DO [facility] 07-24-2024 13:03-0400 Heart rate 78 /min FIFI GROSS DO [facility] 07-24-2024 13:03-0400 Respiratory rate 16 /min FIFI GROSS DO [facility] 07-24-2024 13:03-0400 Systolic Blood Pressure Non-Invasive 158 mm[Hg] FIFI GROSS DO [facility] 07-24-2024 12:26-0400 Blood Pressure Location FIFI GROSS DO [facility] 07-24-2024 12:26-0400 Blood Pressure Method FIFI GROSS DO [facility] 07-24-2024 12:26-0400 Body temperature 97.88 [degF] FIFI GROSS DO [facility] 07-24-2024 12:26-0400 Body weight 95.4 kg FIFI GROSS DO [facility] 07-24-2024 12:26-0400 Diastolic Blood Pressure Non-Invasive 97 mm[Hg] FIFI GROSS DO [facility] 07-24-2024 12:26-0400 Heart rate 84 /min FIFI GROSS DO [facility] 07-24-2024 12:26-0400 Respiratory rate 16 /min FIFI GROSS DO [facility] 07-24-2024 12:26-0400 Systolic Blood Pressure Non-Invasive 168 mm[Hg] FIFI GROSS DO [facility] 04-12-2024 15:22-0400 Diastolic Blood Pressure Non-Invasive 89 mm[Hg] EVERTON GREENFIELD MD [facility] 04-12-2024 15:22-0400 Heart rate 78 /min EVERTON GREENFIELD MD [facility] 04-12-2024 15:22-0400 Mean blood pressure 108 mm[Hg] EVERTON GREENFIELD MD [facility] 04-12-2024 15:22-0400 Respiratory rate 16 /min EVERTON GREENFIELD MD [facility] 04-12-2024 15:22-0400 Systolic Blood Pressure Non-Invasive 158 mm[Hg] EVERTON GREENFIELD MD [facility] 04-12-2024 13:52-0400 Heart rate 114 /min EVERTON GREENFIELD MD [facility] 04-12-2024 12:11-0400 Diastolic Blood Pressure Non-Invasive 85 mm[Hg] EVERTON GREENFIELD MD [facility] 04-12-2024 12:11-0400 Heart rate 113 /min EVERTON GREENFIELD MD [facility] 04-12-2024 12:11-0400 Reason For Taking VItal Signs EVERTON GREENFIELD MD [facility] 04-12-2024 12:11-0400 Respiratory rate 16 /min EVERTON GREENFIELD MD [facility] 04-12-2024 12:11-0400 Systolic Blood Pressure Non-Invasive 146 mm[Hg] EVERTON GREENFIELD MD [facility] 04-12-2024 10:53-0400 Diastolic Blood Pressure Non-Invasive 85 mm[Hg] EVERTON GREENFIELD MD [facility] 04-12-2024 10:53-0400 Heart rate 113 /min EVERTON GREENFIELD MD [facility] 04-12-2024 10:53-0400 Respiratory rate 18 /min EVERTON GREENFIELD MD [facility] 04-12-2024 10:53-0400 Systolic Blood Pressure Non-Invasive 141 mm[Hg] EVERTON GREENFIELD MD [facility] 04-12-2024 07:30-0400 Heart rate 116 /min EVERTON GREENFIELD MD [facility] 04-12-2024 05:13-0400 Body temperature 96.8 [degF] EVERTON GREENFIELD MD [facility] Encounters Encounter Date Encounter Type Care Provider Facility Start: 02-22-2025 ambulatory Fabienne Hou Facili ty:[facility] Start: 01-05-2025 End: 01-05-2025 ambulatory LISA WREN DO Facility:[facility] Start: 12-02-2024 End: 12-03-2024 ambulatory BARRY IRBY MD Facility:A Start: 12-02-2024 End: 12-03-2024 Observation BARRY IRBY MD [facility] Start: 11-25-2024 End: 11-25-2024 Admission to establishment BARRY IRBY MD [facility] Start: 11-25-2024 End: 11-25-2024 ambulatory LISA WREN DO Facility:[facility] Start: 10-13-2024 End: 10-17-2024 ambulatory LISA WREN DO Facility:[facility] Start: 10-13-2024 End: 10-17-2024 Outreach Lab LISA WREN DO [facility] Start: 07-24-2024 End: 07-24-2024 Emergency department patient visit FIFI GROSS DO [facility] Start: 06-15-2024 End: 06-15-2024 ambulatory LISA WREN DO Facility:[facility] Start: 06-15-2024 End: 06-15-2024 Patient encounter procedure LISA MOLINAY DO [facility] Start: 04-29-2024 End: 04-29-2024 ambulatory LISA WREN DO Facility:[facility] Start: 04-28-2024 End: 04-28-2024 ambulatory LISA WREN DO Facility:[facility] Start: 04-12-2024 ambulatory LISA WREN DO Facil ity:A Start: 04-12-2024 End: 04-12-2024 Emergency department patient visit EVERTON GREENFIELD MD [facility] Start: 03-03-2024 End: 03-03-2024 ambulatory Clarke Jasso Facility:[facility] Start: 11-25-2023 End: 11-25-2023 ambulatory LISA WREN DO Facility:[facility] Start: 11-25-2023 End: 11-25-2023 Patient encounter procedure LISA WREN DO [facility] Start: 10-24-2023 End: 10-28-2023 ambulatory LISA WREN DO Facility:[facility] Start: 10-24-2023 End: 10-28-2023 Outreach Lab LISA WREN DO [facility] Start: 09-02-2023 End: 09-02-2023 ambulatory [facility] Work Phone: Start: 09-02-2023 End: 09-02-2023 Patient encounter procedure [facility] Work Phone: Start: 07-26-2023 End: 07-30-2023 ambulatory LISA WREN DO Facility:[facility] Start: 02-27-2023 End: 02-27-2023 Patient encounter procedure LISA WREN DO [facility] Start: 08-21-2022 End: 08-21-2022 ambulatory [facility] Work Phone: Start: 08-21-2022 End: 08-21-2022 Patient encounter procedure [facility] Start: 06-09-2022 End: 06-09-2022 Patient encounter procedure LISA WREN DO [facility] Start: 01-05-2022 End: 01-05-2022 Patient encounter procedure LISA WREN DO [facility] Start: 07-10-2021 End: 07-10-2021 Patient encounter procedure LISA WREN DO [facility] Procedures Date Procedure Procedure Detail Performing Clinician Start: 04-29-2024 Cardiovascular stres s test using pharmacologic stress agent LISA WREN Hita Comment on above: IMPRESSION: 1. Normal myocardial perfusion study. No ischemia or prior infarction. 2. Normal systolic function with ejection fraction of 63%. 3. No prior studies for comparison. Start: 04-29-2024 Echocardiography PORFIRIO WREN Hita Comment on above: Summary: 1. Left ventricle: The cavity size is normal. Wall thickness is mildly increased. Systolic function is normal. The estimated ejection fraction is 65-70%. Wall motion is normal; there are no regional wall motion abnormalities. Normal diastolic function. 2. Aortic valve: The valve is trileaflet. The leaflets are mildly thickened. 3. Mitral valve: The annulus is mildly calcified. 4. Right ventricle: Systolic function is mildly reduced by TAPSE. 5. Pulmonic valve: There is mild, 1+ regurgitation. 6. Right atrium: The estimated right atrial pressure is 3 mm Hg. Start: 03-16-2019 Colonoscopy LISA PAREDES DO Comment on above: no further colonosco pies needed Extraction of cataract KARLA IN [facility] [employer] Comment on above: OS Extraction of cataract [facility] [employer] Comment on above: OS bilateral eyes Hemorrhoidectomy LISA RODAS [facility] Tonsillectomy LISA WREN DO Comment on above: as a child Immunizations Immunization Date Immunization Notes Care Provider Fa cili 06-24-2024 influenza virus vacc ine, unspecified formulation LISA WREN DO [facility] 06-24-2024 SARS-CoV-2 (COVID-19 ) [id number] LISA WREN DO [facility] 06-11-2023 [id number](alan alfredn 5y-11y)bi vac 1 LISA WREN DO [facility] Comment on above: Result Comment: Mode rna - [facility] 06-01-2023 influenza virus vacc ine, unspecified formulation LISA WREN DO [facility] 02-12-2023 tetanus toxoid, redu linh diphtheria toxoid, and acellular pertussis vaccine, adsorbed LISA WREN DO [facility] 06-27-2022 influenza virus vacc ine, unspecified formulation LISA WREN DO [facility] 06-02-2022 SARS-CoV-2 (CV19)mRNA-1273 bivalent vac LISA WREN DO [facility] 06-02-2022 SARSCoV2 (CV19)mRNA-1273(6y+ bival hafsa LISA WREN DO [facility] 12-21-2021 SARS-CoV-2 (COVID-19 ) mRNA-1273 vaccine LISA WREN DO [facility] 08-11-2021 SARS-CoV-2 (COVID-19 ) mRNA-1273 vaccine LISA WREN DO [facility] 06-26-2021 influenza virus vacc ine, unspecified formulation LISA WREN DO [facility] 12-26-2020 COVID-19, mRNA, LNP- S, PF, 100 mcg/ 0.5 mL dose; Translations: [Moderna COVID-19 Vaccine] LISA WREN DO [facility] 11-28-2020 COVID-19, mRNA, LNP- S, PF, 100 mcg/ 0.5 mL dose; Translations: [Moderna COVID-19 Vaccine] LISA WREN DO [facility] 08-25-2020 zoster vaccine recombinant LISA WREN DO [facility] 08-25-2020 zoster vaccine, live LISA LATHAMLAY DO [facility] 07-06-2020 influenza, injectabl e, quadrivalent, preservative free; Translations: [Fluarix PF Quadrivalent ] LISA MOLINAY DO [facility] 04-28-2020 zoster vaccine recombinant LISA WREN DO [facility] 06-30-2019 influenza virus vacc ine, unspecified formulation LISA MOLINAY DO [facility] 06-30-2019 pneumococcal conjuga te vaccine, 13 valent LISA MOHAN DO [facility] 05-30-2018 influenza virus vacc ine, unspecified formulation LISA WREN DO [facility] 12-20-2017 pneumococcal polysaccharide vaccine, 23 valent LISA WREN DO [facility] 06-27-2017 influenza virus vacc ine, unspecified formulation LISA WREN DO [facility] 06-21-2016 influenza virus vacc ine, unspecified formulation LISA WREN DO [facility] 03-08-2016 pneumococcal conjuga te vaccine, 13 valent LISA WREN DO [facility] Payers Date Payer Category Payer Medicare [id number] 2024 Private Health Insurance e [id number] 2024 Self-pay [id number] 2023 Private Health Insurance 101 [id number] 1945 Unknown [id number] 2.16.8 [id number] 1945 Unknown [id number] 2.16.8 [id number] 1945 Unknown [id number] 2.16.8 [id number] 1945 Unknown [id number] 2.16.8 [id number] 1946 Unknown [id number] 2.16.8 [id number] 1946 Unknown [id number] 2.16.8 [id number] 1946 Unknown [id number] 2.16.8 [id number] 1946 Unknown [id number] 2.16.8 [id number] 1946 Unknown [id number] 2.16.8 [id number] 1946 Unknown [id number] 2.16.8 40.1.455031.3.579.2.62 1946 Unknown [id number] 2.16.8 [id number] 1946 Unknown [id number] 2.16.8 [id number] 1946 Unknown [id number] 2.16.8 [id number] Unknown [id number] 2.16.8 [id number] Unknown [id number] 2.16.8 [id number] Social History Date Type Detail Facility Start: 11-25-2019 End: 11-25-2024 Ex-smoker (finding) [facility] Start: 1945 Sex Assigned At Male [facility] Start: 03-18-2019 Sex Male (finding[facility] Functional Status Date Assessment Result Facility 12-03-2024 Functional Status Safety level maintained [facility] 12-03-2024 Functional Status [facility] 12-03-2024 Functional Status Room check performed [facility] 12-03-2024 Functional Status [facility] 12-03-2024 Functional Status [facility] 12-02-2024 Functional Status Independent [facility] 12-02-2024 Functional Status Up to Chair Si tting on edge of bed [facility] 12-02-2024 Functional Status [facility] 12-02-2024 [facility] 12-02-2024 Functional Status Maintained, More than 8 hours [facility] 11-25-2024 Functional Status Sensory Deficits None [facility] 07-24-2024 Functional Status Returned to bed [facility] 07-24-2024 [facility] 04-12-2024 Functional Status Independent [facility] 04-12-2024 Functional Status Standard Safety ID band on [facility] 04-12-2024 Functional Status 7am-3pm [facility] 04-12-2024 Functional Status [facility] Mental Status Date Assessment Result Facility 12-03-2024 Mental Status Orientation Oriented x 4 [facility] 12-03-2024 Mental Status [facility] 12-02-2024 Mental Status [facility] 07-24-2024 Mental Status Orientation Oriented x 4 [facility] 07-24-2024 Mental Status [facility] 04-12-2024 Mental Status Orientation Oriented x 4 [facility] 04-12-2024 Mental Status [facility] 04-12-2024 Mental Status [facility] Clinical Notes 04-12-2024 to 12-03-2024 Note Date & Type Note Facility 12-03-2024 Hospital Discharge instructions Patient Education 12/03/2024 09:15:00 3-- EP Study/Ablation (06/2018)(CUSTOM) ELECTROPHYSIOLOGY STUDY/ABLATION Discharge Instructions DIET INSTRUCTIONS Resume diet as prior to procedure ACTIVITIES Do not drive FOR 24 HOURS No heavy lifting GREATER THAN 20 POUNDS or pushing or straining FOR 4 DAYS BATHING/SHOWERING May tub bathe in 4 days Do not sit in hot tub, whirlpool, or swim for 4 days May shower today WOUND CARE Groin: You may go home with a Band-Aid over your procedure site. Keep this Band-Aid on for the next 24 hours and then remove it leaving the site open to air. Left wrist: Keep band on site for next 3-4 days changing daily. Some degree of bruising and tenderness is normal around the procedure site. It will take a while for any bruising to completely resolve. Keep your site clean and dry. You need to report the following to your explosive ordnance disposal manager: Any draining or oozing from the site Any swelling at the site Any increased pain or tenderness at the site Any numbness in your leg where the procedure was done Any sign of infection WATCH FOR SIGNS OF INFECTION: Elevated temperature above 100.5 Redness or swelling Increased pain Foul odor or drainage. If you have any questions, please call your doctor at the number listed on your follow up instructions. Follow all instructions given to you by your physician. Document Released: 09/09/2006 Document Revised: 08/26/2013 Document Reviewed: 09/10/2014 ExitCare Patient Information 2015 [employer]. This information is not intended to replace advice given to you by your health care provider. Make sure you discuss any questions you have with your health care provider. Follow Up Care 10/26/2024 10:15:25 With:BARRY IRBY MD Address: [address] [facility] [place] [address]- [phone] When:03/04/2025 13:15:00 [facility] 12-03-2024 Summary of episode note Discharge Instructions Thank you for allowing [facility] to assist you with your healthcare needs. The following is important discharge information regarding your hospital visit. Your Care Team LISA WREN DO Your Diagnosis COPD - Chronic obstructive pulmonary disease Hyperlipidemia Hypertension Social anxiety disorder What to do next Scheduled Follow-Up Appointments Appointment Type When With Where Contact Information StatusPC OV Follow Up 01/12/2025 08:30 AM EDT LISA WREN DO [facility] [address] [place] [address] Confirmed CV OV 03/04/2025 01:15 PM [address]ARSH IRBY [facility] Confirmed CV OV 04/22/2025 09:30 AM EDT ELAINE CRUZ APRN-JONG [facility] Confirmed Follow Up Appointments Follow Up with BARRY IRBY MD When:03/04/2025 01:15 PM EDT Where:[address] [place] [address]- [phone] The Following Activity and Diet Have Been Ordered for You Discharge Activity - Ordered -- Other, No heavy lifting (>20 pounds) for the next 3 days, 12/03/24 9:04:00 EDT Discharge Diet - Ordered -- No changes were made to your diet during your hospital stay. Please resume your pre hospitalization diet on discharge., 12/03/24 9:04:00 EDT Allergies Wixela Inhub Difficulty breathing, Irregular heart beat tiZANidine Rash, Nausea zithromax Cramping, Nausea Medications Please ask your primary doctor or pharmacist before taking any other medication not listed, including over the counter drugs, herbal medications, vitamins and or supplements as they may interact with your home medications. What How Much When Why Instructions Last Dose Unchanged albuterol (ProAir HFA MDI (90 mcg/ inh) inhalation aerosol) 2 puff(s) by inhalation Every 6 hours COPD - Chronic obstructive pulmonary disease Duration: 30 Days None given Unchanged apixaban (Eliquis 5 mg oral tablet) 1 tab(s) by mouth Two (2) times a day Today 12/03/24 at 08:06AM Unchanged buPROPion (Wellbutrin XL 300 mg/ 24 hours oral tablet, extended release) 1 tab(s) by mouth Every 24 hours Social anxiety disorder Today 12/03/24 at 08:06AM Unchanged carvedilol (carvedilol 12.5 mg oral tablet) 1.5 tab(s) by mouth Two (2) times a day Dose was increased None given Unchanged cholecalciferol (Vitamin D3 50 mcg (2000 intl units) oral capsule) 1 cap by mouth Once a day Today 12/03/24 at 08:06AM Unchanged chondroitin/ glucosamine/ methylsulfonylmethane (Osteo Bi-Flex Advanced oral tablet) 1 tab(s) by mouth Every day None given Unchanged docusate (Dulcolax Stool Softener 100 mg oral capsule) 1 cap by mouth Two (2) times a day as needed for as needed for constipation None given Unchanged fexofenadine (Angela 12 Hour Allergy) 1 tab by mouth Once a day Today 12/03/24 at 08:06AM Unchanged fluticasone nasal (fluticasone proprionate NASAL 50 mcg/ spray) 1 spray(s) each nostril Two (2) times a day none given Unchanged hydroCHLOROthiazide (hydroCHLOROthiazide 25 mg oral tablet) 1 tab(s) by mouth Once a day Hypertension Today 12/03/24 at 08:06AM Unchanged ibuprofen (Advil 200 mg oral tablet) 2 tab(s) by mouth Every 4 hours as needed for as needed for pain none given Unchanged losartan (losartan 50 mg oral tablet) 1 tab(s) by mouth Once a day Hypertension Today 12/03/24 at 08:06AM Unchanged melatonin (melatonin 1 mg oral tablet) 2 tab(s) by mouth Daily at bedtime as needed for as needed for insomnia None given Unchanged Misc Medication (Preser Vision) 1 tablet by mouth Two (2) times a day None given Unchanged multivitamin with minerals (One A Day Men's Complete oral tablet) by mouth Once a day None given Unchanged naproxen (Aleve 220 mg oral tablet) 1 tab(s) by mouth Every 8 hours as needed for as needed for pain None given Unchanged omega-3 polyunsaturated fatty acids (Fish Oil 1000 mg oral capsule) 1 cap by mouth Two (2) times a day Today 12/03/24 at 08:06AM Unchanged simvastatin (simvastatin 20 mg oral tablet) 1 tab(s) by mouth Daily at bedtime Hyperlipidemia Yesterday at 9:22PM Unchanged tamsulosin (tamsulosin 0.4 mg oral capsule) 1 cap by mouth Once a day (in the evening) Yesterday at 7:25PM Please take this list to your next doctor s visit. Bring all medications you take, including over the counter medications, herbals and other supplements with you to your doctor s visit. Patients and families are reminded to discard old lists and to update any records with all medication providers or retail pharmacies. Education Materials ELECTROPHYSIOLOGY STUDY/ABLATION Discharge Instructions DIET INSTRUCTIONS Resume diet as prior to procedure ACTIVITIES Do not drive FOR 24 HOURS No heavy lifting GREATER THAN 20 POUNDS or pushing or straining FOR 4 DAYS BATHING/SHOWERING May tub bathe in 4 days Do not sit in hot tub, whirlpool, or swim for 4 days May shower today WOUND CARE Groin: You may go home with a Band-Aid over your procedure site. Keep this Band-Aid on for the next 24 hours and then remove it leaving the site open to air. Left wrist: Keep band on site for next 3-4 days changing daily. Some degree of bruising and tenderness is normal around the procedure site. It will take a while for any bruising to completely resolve. Keep your site clean and dry. You need to report the following to your explosive ordnance disposal manager: Any draining or oozing from the site Any swelling at the site Any increased pain or tenderness at the site Any numbness in your leg where the procedure was done Any sign of infection WATCH FOR SIGNS OF INFECTION: Elevated temperature above 100.5 Redness or swelling Increased pain Foul odor or drainage. If you have any questions, please call your doctor at the number listed on your follow up instructions. Follow all instructions given to you by your physician. Document Released: 09/09/2006 Document Revised: 08/26/2013 Document Reviewed: 09/10/2014 ExitCare Patient Information 2015 cloudControl, [facility]. This information is not intended to replace advice given to you by your health care provider. Make sure you discuss any questions you have with your health care provider. Additional Information VACCINATE! IT SAVES LIVES! Members of the community who have not yet received the COVID-19 vaccine and would like to receive it can visit one of [facility] vaccine clinics. There are many vaccine clinic locations within the [facility]. For locations and available times, please visit [email or web address] It is important to note that some COVID mobile vaccine clinics are held outdoors and may be canceled in rainy or stormy conditions. To learn more about pediatric vaccinations (ages 5-11), we invite you to visit the [facility] webpage. [email or web address] To learn more about the COVID-19 vaccine, we invite you to visit the CDC website for a list of frequently asked questions.https://www.cdc.gov/crane virus/2019-ncov/vaccines/faq.html [facility] Patient Portal Access Instructions: Stay connected with your healthcare team and access your personal medical information anytime with the [facility] Patient Portal. Please follow the directions below to create your [facility] account: 1.Access the email account you provided upon registration to the hospital/physician office.2.Look for an invitation email from [facility].3.Open the email and access the invitation link: Accept Invitation to [facility].4.Fill in the required hardin to create your account. To access your account, visit [employer]. Click the blue button labeled Access Patient Portal and then log in with the username and password that you created in the steps above. You will be able to view your test results, lab results, a summary of your visits, upcoming appointments and more. There is also a convenient messaging option where you can send secure messages to your provider. In addition, you will have the ability to download any documents or summaries to your computer and/or send the information securely to a physician. Remember that your healthcare information is confidential, so carefully consider who you will allow to register on the [facility] Patient Portal for access to your information. You can also access the [facility] Patient Portal on the [facility] [employer]ynold. Simply click on Patient Portal and then log into your account. If you would like to receive a full copy of your medical records, please contact the [facility] Medical Records Department by calling [phone], Saturday through Saturday between 8 a.m. and 4:30 p.m. HOW TO SAFELY DISPOSE OF PRESCRIPTION MEDICATIONS Please use one of the following methods to safely dispose of your unused medications. 1.Use a drug disposal kit: the drug disposal pouch allows you to safely discard your old and unused drugs. Ask your nurse to give you one when you are discharged.2.Visit a local take-back location: Many local pharmacies and police departments have programs that collect old and unwanted prescription drugs. Call your local pharmacy or go to [email or web address] to find one close to you.3.Make use of household items: Use cat litter or old coffee grounds to dispose medications if other options are not available. Mix your drugs with these household products, seal them in an airtight container and throw it into the garbage. Call [facility]: [phone] to be sure your drugs can be disposed of in this way. Some medicines may require a different approach.4.Never flush your medications down the toilet. IF YOU HAVE BEEN PRESCRIBED AN OPIOID FOR PAIN If you have been prescribed an opioid (such as hydrocodone, oxycodone or morphine), it is critical to understand the possible side effects and risks of opioid pain medications. Even when taken as directed, opioids can have several side effects including: Tolerance, meaning you might need to take more of a medication for the same pain relief. Nausea, vomiting and/or constipation. Sleepiness, dizziness, dry mouth, confusion, depression or itching. Physical dependence, meaning you have withdrawal symptoms when a medication is stopped, can develop within a few days. KNOW YOUR RESPONSIBILITIES It is important to know exactly how much and how often to take the opioid pain medications you are prescribed. Never take opioids in higher amounts or more often than prescribed. Do not combine opioids with alcohol or other drugs that cause drowsiness, such as benzodiazepines, also known as benzos, including diazepam and alprazolam, muscle relaxants or sleep aids. Never sell or share prescription opioids. This is illegal. Store opioids in a secure place and out of reach of others (including children, family, friends and visitors). The last page of this document has been signed and retained as a CHART COPY. Signatures Patient Education Materials 3-- EP Study/Ablation (06/2018)(CUSTOM) Medication Leaflets My discharge plan and instructions have been reviewed and explained to me and I,SARAH ABRAMS understand my current condition and have read and understand these discharge instructions. I have received a written copy of the plan/instructions. If I have questions, I am aware that I should contact my doctor. Patient/Electrician Bus Signature: ___ Date/Time: Relationship to Patient: _ Witness Name/Signature: Date/Time: [facility] 12-03-2024 Discharge summary Date of Service 12/03/24 Discharge Diagnosis home Hospital Course HPI: 79-year-old with paroxysmal atrial fibrillation (Eliquis; Coreg), diagnosed March 2024, HTN, obesity, COPD, referred by Jayde Cruz for further management. Course: The patient underwent successful atrial fibrillation ablation (PFA-PVI+posterior wall + SVC). Maintained sinus rhythm following the procedure. Made good urine. No groin issues after ambulation. No other concerns. The patient was ready for d/c home. Will continue on anticoagulation. Allergies Wixela Inhub Difficulty breathing, Irregular heart beat tiZANidine Rash, Nausea zithromax Cramping, Nausea Procedures as above Consults none Imaging Results and Diagnostics none Objective Vitals and Measurements T: 36.7 C (Oral) TMIN: 35.96 C TMAX: 36.7 C (Oral) HR: 96 RR: 18 BP: 120/64 SpO2: 95% Weight Dosing Weight: 93.7 kg (12/02/24) General Appearance: Alert and oriented x3, no apparent distress Head: Normocephalic, atraumatic EENT: EOMI, PERRLA, mucous membranes moist Neck: Supple, no thyromegaly. Cardiac: rrr, no mrg. Lungs: Clear to auscultation bilaterally, no wheezing, rales, rhonchi. Abdomen: Nondistended, nontender, bowel sounds present. Musculoskeletal: No gross deformities. Extremities: no significant lower extremity edema, no calf tenderness, pedal pulses are present bilaterally Neurological: No focal deficits Skin: Warm, dry, intact Psychiatric: Mood congruent, cooperative Pending Labs and Studies none Code Status Code Status - Ordered -- 12/02/24 11:57:00 EDT, Full Code, Constant Order Admission Date 12/02/24 Discharge Date 12/03/24 Medications Unchanged albuterol (ProAir HFA MDI (90 mcg/inh) inhalation aerosol)2 puff(s) by inhalation every 6 hours for 30 Days. Refills: 5. apixaban (Eliquis 5 mg oral tablet)1 tab(s) by mouth two (2) times a day. Refills: 5. buPROPion (Wellbutrin XL 300 mg/24 hours oral tablet, extended release)1 tab(s) by mouth every 24 hours. Refills: 1. carvedilol (carvedilol 12.5 mg oral tablet)1.5 tab(s) by mouth two (2) times a day. Dose was increased. Refills: 1. cholecalciferol (Vitamin D3 50 mcg (2000 intl units) oral capsule)1 cap by mouth once a day. chondroitin/glucosamine/methylsulfon ylmethane (Osteo Bi-Flex Advanced oral tablet)1 tab(s) by mouth every day. docusate (Dulcolax Stool Softener 100 mg oral capsule)1 cap by mouth two (2) times a day as needed as needed for constipation. fexofenadine (Angela 12 Hour Allergy)1 tab by mouth once a day. fluticasone nasal (fluticasone proprionate NASAL 50 mcg/ spray)1 spray(s) each nostril two (2) times a day. hydroCHLOROthiazide (hydroCHLOROthiazide 25 mg oral tablet)1 tab(s) by mouth once a day. Refills: 1. ibuprofen (Advil 200 mg oral tablet)2 tab(s) by mouth every 4 hours as needed as needed for pain. losartan (losartan 50 mg oral tablet)1 tab(s) by mouth once a day. Refills: 1. melatonin (melatonin 1 mg oral tablet)2 tab(s) by mouth daily at bedtime as needed as needed for insomnia. Misc Medication (Preser Vision)1 tablet by mouth two (2) times a day. multivitamin with minerals (One A Day Men's Complete oral tablet)by mouth once a day. naproxen (Aleve 220 mg oral tablet)1 tab(s) by mouth every 8 hours as needed as needed for pain. omega-3 polyunsaturated fatty acids (Fish Oil 1000 mg oral capsule)1 cap by mouth two (2) times a day. simvastatin (simvastatin 20 mg oral tablet)1 tab(s) by mouth daily at bedtime. Refills: 3. tamsulosin (tamsulosin 0.4 mg oral capsule)1 cap by mouth once a day (in the evening). Follow Up Follow Up with BARRY IRBY MD When:03/04/2025 01:15 PM EDT Where:[address] [facility] [place] [address]- [phone] Follow Up Labs/Studies Discharge Labs No Follow-up Labs Discharge Studies No Follow-up Studies Discharge Diet Discharge Diet - Ordered -- No changes were made to your diet during your hospital stay. Please resume your pre hospitalization diet on discharge., 12/03/24 9:04:00 EDT Discharge Activity Discharge Activity - Ordered -- Other, No heavy lifting (>20 pounds) for the next 3 days, 12/03/24 9:04:00 EDT Condition on Discharge stable Readmission Risk/Palliative Score No qualifying data available. Discharge Disposition home Information Provided To patient Digitally Signed by BARRY IRBY MD on 12/03/2024 09:06 AM [facility] 12-02-2024 Evaluation + Plan note Extrac yvette from: Title:History and Physical Author:BARRY IRBY MD Date:12/02/24 79-year-old with paroxysmal atrial fibrillation (Eliquis; Coreg), diagnosed March 2024, HTN, obesity, COPD, referred by Jayde Cruz for further management. 1. Paroxysmal atrial fibrillation Severe, Debilitating symptoms. We discussed antiarrhythmic drug therapy versus ablation. He decided on ablation after extensive discussion on options. The risks versus benefits of the procedure were discussed in great detail with the patient, including any imponderables, and the patient wishes to proceed. - to EP lab for ablation - eliquis after 2. Hypertension Recommend treatment as this could help to reduce atrial fibrillation burden. 3. Hyperlipidemia stable 4. Stage III chronic kidney disease noted f/u pending his decision Barry Irby MD Cardiac Electrophysiology [phone] Future Appointments Appointment Date:01/12/2025 08:30:00 AM Scheduled Provider:LISA WREN:[facility] Appointment Type:PC OV Follow Up Appointment Date:03/04/2025 01:15:00 PM Scheduled Provider:ADARSH IRBY Location:[facility] Appointment Type:CV OV Appointment Date:04/22/2025 09:30:00 AM Scheduled Provider:ELAINE CRUZ [facility] Future Scheduled Tests Laboratory* Prostate Specific Antigen 01/11/25 * Thyroid Stimulating Hormone 01/11/25 * Lipid Profile 01/11/25 * Vitamin D Level 01/11/25 * Complete Metabolic Panel 01/11/25 [facility] 03-12-2025 Anesthesiology Consult note Patient: SARAH ABRAMS Age: 79 years Sex: Male : 1945 Associated Diagnoses: None Author: FRANCIE MARINELLI MD Assessment Postanesthesia assessment Vitals: Vital signs from flowsheet : Vital Signs 12/02/2024 13:25 EDT Heart Rate Monitored 92 bpm Respiratory Rate 16 br/min Systolic Blood Pressure Non-Invasive 165 mmHg HI Diastolic Blood Pressure Non-Invasive 84 mmHg , Oxygen Therapy : Oxygen Therapy & Oxygenation Information 12/02/2024 13:25 EDT Oxygen Therapy Room air Oxygen Saturation 96 % . Mental status: at preoperative baseline. Respiratory function: respirations are non-labored. Respiratory support: none. CV function: Normal rate, Regular rhythm. Cardiovascular support: none. Pain: Satisfactory. Nausea status: Satisfactory. Postoperative hydration status: within normal limits. Notes: Patient is sufficiently recovered from anesthesia to participate in the evaluation. No follow-up care needed. No complications post-anesthesia., Pt c/o chest tightness, difficult breathing andheadache. Received 15 mg Toradol with no significant improvement. CXR normal. 12 lead EKG no significant changes (read by his speech pathology assistant). After a dose of Dilaudid pt felt better. . Digitally Signed by FRANCIE MARINELLI MD on 12/02/2024 01:42 PM [id number] Note* Exam Date Time Procedure Performing Provider Status 12/02/24 12:44 PM Electrocardiogram - EKG - CV ARMANDO BENJAMIN MD; Auth (Verified) ECG Final Report SINUS RHYTHM CONSIDER RVH OR POSTERIOR INFARCT Electronic Signature: ARMANDO BENJAMIN MD 12/03/2024 12:44:03 [facility] [id number] Note* Exam Date Time Procedure Performing Provider Status 12/02/24 12:43 PM XR Chest 1 View SHIV MOORE MD; [facility] (Verified) [id number] ORIGINAL EXAMINATION: ONE XRAY VIEW OF THE CHEST 12/02/2024 12:43 pm COMPARISON: July 24, 2024 HISTORY: ORDERING SYSTEM PROVIDED HISTORY: Reason for Exam: SOB, chest pain. FINDINGS: The heart is normal in size and there is no vascular congestion present. No infiltrate or pleural fluid seen. No acute osseous finding. IMPRESSION: No acute process. Interpreted by: Shiv Moore MD Preliminary Report By: Shiv Moore MD Electronically signed By Shiv Moore MD Dictated Date: 12/02/2024 12:50:34 PM Prelim Date: 12/02/2024 12:50:57 PM Sign Date: 12/02/2024 12:50:57 PM Ordering Provider: FRANCIE MARINELLI [facility] [id number] Note* Exam Date Time Procedure Performing Provider Status 12/02/24 10:07 AM Ablation CV BARRY IRBY MD; Auth (Ve rified) [facility] [id number] Note* Exam Date Time Procedure Performing Provider Status 12/02/24 9:24 AM Electrocardiogram - EKG - CV Ho BENJAMIN MD; Auth (Verified) ECG Final Report SINUS RHYTHM PROBABLE LEFT ATRIAL ENLARGEMENT Electronic Signature: ARMANDO BENJAMIN MD 12/03/2024 12:43:58 [facility] [id number] Anesthesiology Consult note Patient: SARAH ABRAMS Age: 79 years Sex: Male : 1945 Associated Diagnoses: None Author: FRANCIE MARINELLI MD Preoperative Information Time of last food or liquid consumption: 12/01/2024 23:00:00 Anesthesia history Patient's history: negative. Family's history: negative. History of Present Illness 79 yr old M pt with afib presents for pulsed field ablation. PMH is significant for HTN, CKD. COPD. TTE, 04/29/2024: Summary: 1. Left ventricle: The cavity size is normal. Wall thickness is mildly increased. Systolic functionis normal. The estimated ejection fraction is 65-70%. Wall motion is normal; there are no regional wall motion abnormalities. Normal diastolic function. 2. Aortic valve: The valve is trileaflet. The leaflets are mildly thickened. 3. Mitral valve: The annulus is mildly calcified. 4. Right ventricle: Systolic function is mildly reduced by TAPSE. 5. Pulmonic valve: There is mild, 1+ regurgitation. 6. Right atrium: The estimated right atrial pressure is 3 mm Hg. Review of Systems Ear/Nose/Mouth/Throat: Negative except for what is mentioned in problem list.. Respiratory: Negative except for what is mentioned in problem list.. Cardiovascular: Negative except for what is mentioned in problem list.. Gastrointestinal: Negative except for what is mentioned in problem list.. Genitourinary: Negative except for what is mentioned in problem list.. Endocrine: Negative except for what is mentioned in problem list.. Musculoskeletal: Negative except for what is mentioned in problem list.. Integumentary: Negative except for what is mentioned in problem list.. Neurologic: Negative except for what is mentioned in problem list.. Health Status Allergies: Allergic Reactions (Selected) Severity Not Documented TiZANidine- Rash and nausea. Wixela Inhub- Difficulty breathing and irregular heart beat. Zithromax- Nausea and cramping., Allergies (3) ActiveSeverityReaction zithromaxNausea, Cramping tiZANidineNausea, Rash Wixela InhubIrregular heart beat, Difficulty b breathing Current medications: (Selected) Inpatient Medications Ordered NS 1,000 mL: 50 mL/hr, Intravenous Prescriptions Prescribed Eliquis 5 mg oral tablet: 5 mg, 1 tab(s), Oral, BID, 60 tab(s), 5 Refill(s) ProAir HFA MDI (90 mcg/inh) inhalation aerosol: 2 puff(s), Inhalation, q6hr, for 30 day(s), 1 EA, 5Refill(s) Wellbutrin XL 300 mg/24 hours oral tablet, extended release: 300 mg, 1 tab(s), Oral, q24h, 90 tab(s), 1 Refill(s) carvedilol 12.5 mg oral tablet: 18.75 mg, 1.5 tab(s), Oral, BID, Dose was increased, 90 tab(s), 1 Refill(s) hydroCHLOROthiazide 25 mg oral tablet: 25 mg, 1 tab(s), Oral, qDay, 90 tab(s), 1 Refill(s) losartan 50 mg oral tablet: 50 mg, 1 tab(s), Oral, qDay, 90 tab(s), 1 Refill(s) simvastatin 20 mg oral tablet: 20 mg, 1 tab(s), Oral, qHS, 90 tab(s), 3 Refill(s) Documented Medications Documented Advil 200 mg oral tablet: 400 mg, 2 tab(s), Oral, q4h, PRN: as needed for pain, 120 tab(s), 0 Refill(s) Aleve 220 mg oral tablet: 220 mg, 1 tab(s), Oral, q8h, PRN: as needed for pain, 30 tab(s), 0 Refill(s) Angela 12 Hour Allergy: 1 tab, Oral, qDay, 0 Refill(s) Dulcolax Stool Softener 100 mg oral capsule: 100 mg, 1 cap(s), Oral, BID, PRN: as needed for constipation, 20 cap(s), 0 Refill(s) Fish Oil 1000 mg oral capsule: 1,000 mg, 1 cap(s), Oral, BID, 60 cap(s), 0 Refill(s) Misc Medication: Osteo Bi-Flex, 0 Refill(s) One A Day Men's Complete oral tablet: Oral, qDay, 0 Refill(s) Preser Vision: 2 tablets, Oral, qDay, 0 Refill(s) Vitamin D3 25 mcg (1000 intl units) oral capsule: 75 mcg, 3 cap(s), Oral, qDay, 0 Refill(s) fluticasone proprionate NASAL 50 mcg/ spray: 50 mcg, 1 spray(s), Nostril, each, BID, 0 Refill(s) fluticasone-salmeterol 250 mcg-50 mcg/inh inhalation powder: 1 puff(s), Inhalation, BID, PRN: Allergy symptoms, 60 EA, 0 Refill(s) melatonin 1 mg oral tablet: 1 mg, 1 tab(s), Oral, qHS, PRN: as needed for insomnia, 90 tab(s), 0 Refill(s) tamsulosin 0.4 mg oral capsule: 0.4 mg, 1 cap(s), Oral, qPM, 30 cap(s), 0 Refill(s), Medications (1) Active Scheduled: (0) Continuous: (1) NS (0.9% nacl) 1,000 mL 1,000 mL, Intravenous, 50 mL/hr PRN: (0) Problem list: Medical BPH with elevated PSA / SNOMED CT 137645182 / Confirmed Bilateral hearing loss due to cerumen impaction / SNOMED CT 338957380 / Confirmed Bilateral lower extremity edema / SNOMED CT 7646013001 / Confirmed BMI 31.0-31.9,adult / SNOMED CT 359448690 / Confirmed Stage III chronic kidney disease / SNOMED CT 8008933275 / Confirmed COPD - Chronic obstructive pulmonary disease / SNOMED CT 010984315 / Confirmed Abdominal wall bulge / SNOMED CT 8658400536 / Confirmed Dyspnea / SNOMED CT 588121711 / Confirmed Former smoker / SNOMED CT 28446308 / Confirmed Eczema of face / SNOMED CT 76551072 / Confirmed Fatigue / SNOMED CT 173036177 / Confirmed Long-term use of high-risk medication / SNOMED CT 792272723 / Confirmed Secondary hypercoagulable state / SNOMED CT 031036276 / Confirmed Hyperlipidemia / SNOMED CT 87823729 / Confirmed Hypertension / SNOMED CT 16592312 / Confirmed Muscle tightness / SNOMED CT 415934344 / Confirmed Has received influenza vaccination in current influenza season / SNOMED CT 181893021 / Confirmed Arthralgia / SNOMED CT 75178496 / Confirmed Need for influenza vaccination / SNOMED CT 331439337 / Confirmed Paroxysmal atrial fibrillation / SNOMED CT 923554541 / Confirmed Medicare annual wellness visit, subsequent / SNOMED CT 829663285 / Confirmed Screening for ischemic heart disease / SNOMED CT 153161767 / Confirmed Screening for prostate cancer / SNOMED CT 428400088 / Confirmed Screening for diabetes mellitus / SNOMED CT 744934795 / Confirmed Well adult exam / SNOMED CT 622060092 / Confirmed Risk and functional assessment / SNOMED CT 320758083 / Confirmed Hospital discharge follow-up / SNOMED CT 3021880039 / Confirmed Need for vaccination / SNOMED CT 3359121685 / Confirmed Seasonal allergies / SNOMED CT 8198588834 / Confirmed Social anxiety disorder / SNOMED CT 17758733 / Confirmed Back spasm / SNOMED CT 327293788 / Confirmed Need for hepatitis C screening test / SNOMED CT 183869188 / Confirmed Vitamin D deficiency / SNOMED CT 76583559 / Confirmed Dry mouth / SNOMED CT 871126280 / Confirmed, Active Problems (42) Abdominal wall bulge AF (atrial fibrillation) Anxiety Arthralgia Back pain Back spasm Bilateral hearing loss due to cerumen impaction Bilateral lower extremity edema BMI 31.0-31.9,adult BPH with elevated PSA Constipation COPD - Chronic obstructive pulmonary disease Depression Dizziness on standing Dry mouth Dyspnea Eczema of face Fatigue Former smoker Glasses Hard of hearing Has received influenza vaccination in current influenza season Hospital discharge follow-up Hyperlipidemia Hypertension Long-term use of high-risk medication Medicare annual wellness visit, subsequent Muscle tightness Need for hepatitis C screening test Need for influenza vaccination Need for vaccination Paroxysmal atrial fibrillation Risk and functional assessment Screening for diabetes mellitus Screening for ischemic heart disease Screening for prostate cancer Seasonal allergies Secondary hypercoagulable state Social anxiety disorder Stage III chronic kidney disease Vitamin D deficiency Well adult exam Histories Past Medical History: Resolved GERD - Gastro-esophageal reflux disease (0986260692): Resolved. Trigger thumb of right hand ([id number]): Resolved. Cough (49060480): Resolved. Family History: Hypertension Mother Heart disease Mother Father Stroke Mother Glaucoma Father Diabetes Mother Procedure history: Echocardiogram ([id number]) on 04/29/2024 at 79 Years. Comments: 08/28/2024 15:07 Alanna Sibley LPN Summary: 1. Left ventricle: The cavity size is normal. Wall thickness is mildly increased. Systolic functionis normal. The estimated ejection fraction is 65-70%. Wall motion is normal; there are no regional wall motion abnormalities. Normal diastolic function. 2. Aortic valve: The valve is trileaflet. The leaflets are mildly thickened. 3. Mitral valve: The annulus is mildly calcified. 4. Right ventricle: Systolic function is mildly reduced by TAPSE. 5. Pulmonic valve: There is mild, 1+ regurgitation. 6. Right atrium: The estimated right atrial pressure is 3 mm Hg. Stress testing using pharmacologic-induced stress ([id number]) on 04/29/2024 at 79 Years. Comments: 08/28/2024 15:08 JAZZ Gagnon Alanna Vasques PATSY IMPRESSION: 1. Normal myocardial perfusion study. No ischemia or prior infarction. 2. Normal systolic function with ejection fraction of 63%. 3. No prior studies for comparison. Colonoscopy ([id number]) on 03/16/2019 at 73 Years. Comments: 01/02/2022 11:06 Bonnie Hameed LPN no further colonoscopies needed Cataract extraction ([id number]). Comments: 02/12/2023 8:34 Chloe Cooley LPN bilateral eyes 04/28/2019 13:55 Chloe Cooley LPN OS Hemorrhoidectomy ([id number]). Tonsillectomy ([id number]). Comments: 02/12/2023 8:35 Chloe Cooley LPN as a child Social History: Social & Psychosocial Habits Alcohol 11/25/2024 Use: Current Type: Beer Frequency: 1-2 times per month Substance Abuse 11/25/2024 Use: Never Tobacco 11/25/2024 Tobacco Use: Former smoker, quit more Type: Cigarettes Tobacco use per day: 2 Started at age: 20 Years Stopped at age: 26 Years Exposure to Tobacco Smoke Lives in non-smoking home Home/Environment 11/25/2024 Living situation: Home/Independent Domestic Concerns None Lives In 1st floor bathroom, 1st floor bedroom Current Home Treatments Blood Pressure monitoring Nutrition/Health 11/25/2024 Type of diet: Regular Caffeine intake amount: about 4 x a week-coffee, soda Eating Difficulties None Physical Examination No qualifying data available General: Alert and oriented, No acute distress. Airway: Normal temporomandibular joint mobility. Mallampati classification: II (soft palate, fauces, uvula visible). Head: Normocephalic, Atraumatic. Dentition Evaluation: crowns, partial bridge.. Neck: Supple, Non-tender. Respiratory: Lungs are clear to auscultation, Respirations are non-labored. Cardiovascular: Normal rate. Heart Sounds: Normal. Gastrointestinal: Soft, Non-tender. Musculoskeletal Normal range of motion. Normal strength. No swelling. Integumentary: Warm, Dry, No pallor. Neurologic: Alert, Oriented, No focal deficits. Review / Management Results review: No qualifying data available , Lab results 12/02/2024 7:23 EDT History and Physical History and Physical 12/02/2024 5:00 EDT Electrocardiogram - EKG - CV Ordered (In Progress) . Assessment and Plan [place] [employer] Anesthesiologists (ASA) physical status classification: Class III. Anesthetic Preoperative Plan Premedication: intravenous. Anesthetic technique: General. Induction: intravenously. Maintenance airway: Oral endotracheal tube. Special Monitoring: Arterial line, CVC from the field.. Postoperative pain management: Per surgeon. Risks discussed: nausea, sore throat, dental injury, allergic reaction, serious complications. Informed consent: signed by patient. Digitally Signed by FRANCIE MARINELLI MD on 12/02/2024 11:20 AM [id number] History and physical note Date of Service 12/02/24 Chief Complaint here for ablation History of Present Illness 79-year-old with paroxysmal atrial fibrillation (Eliquis; Coreg), diagnosed March 2024, HTN, obesity, COPD, referred by Jayde Cruz for further management. Rapid palpitations, feeling them in the throat. This is despite Coreg. He has not been on antiarrhythmic drug therapy. No prior cardioversions or ablations. No other triggers. Asthma medications havetriggered. No dizziness. No syncope. Dyspnea on exertion (minimal). No orthopnea, PND, rest/exertional chest pain. No significant LE edema or increased abdominal girth. I have reviewed and agree with any documentation taken by the ancillary staff. EC04/12/24 AFib RVR 130 bpm range ECG: today NSR 63 bpm normal ND/QRS/QT [employer] 04/27/24--05/27/24 no tachy/francy cardias No AFib. PAC<1%. PVC<1% no patient triggered events echo 04/29/24 1. LVEF 67%. 2. Aortic valve: The valve is trileaflet. The leaflets are mildly thickened. 3. Mitral valve: The annulus is mildly calcified. 4. Right ventricle: Systolic function is mildly reduced by TAPSE. 5. Pulmonic valve: There is mild, 1+ regurgitation. 6. Right atrium: The estimated right atrial pressure is 3 mm Hg NM stress 04/29/24 1. Normal myocardial perfusion study. No ischemia or prior infarction. 2. Normal systolic function with ejection fraction of 63%. 3. No prior studies for comparison. Review of Systems 12 point ros o/w negative except per HPI Physical Exam Vitals and Measurements No qualifying data available. General Appearance: Alert and oriented x3, no apparent distress Head: Normocephalic, atraumatic EENT: EOMI, PERRLA, mucous membranes moist Neck: Supple, no thyromegaly. Cardiac: rrr, no mrg. Lungs: Clear to auscultation bilaterally, no wheezing, rales, rhonchi. Abdomen: Nondistended, nontender, bowel sounds present. Musculoskeletal: No gross deformities. Extremities: no significant lower extremity edema, no calf tenderness, pedal pulses are present bilaterally Neurological: No focal deficits Skin: Warm, dry, intact Psychiatric: Mood congruent, cooperative Lab Results pending Imaging Results and Diagnostics none today EKG pending Assessment/Plan 79-year-old with paroxysmal atrial fibrillation (Eliquis; Coreg), diagnosed March 2024, HTN, obesity, COPD, referred by Jayde Cruz for further management. 1. Paroxysmal atrial fibrillation Severe, Debilitating symptoms. We discussed antiarrhythmic drug therapy versus ablation. He decidedon ablation after extensive discussion on options. The risks versus benefits of the procedure were discussed in great detail with the patient, including any imponderables, and the patient wishes to proceed. - to EP lab for ablation - alysha after 2. Hypertension Recommend treatment as this could help to reduce atrial fibrillation burden. 3. Hyperlipidemia stable 4. Stage III chronic kidney disease noted f/u pending his decision Barry Irby MD Cardiac Electrophysiology [phone] Problem List/Past Medical History Ongoing Abdominal wall bulge Arthralgia Back spasm Bilateral hearing loss due to cerumen impaction Bilateral lower extremity edema BMI 31.0-31.9,adult BPH with elevated PSA COPD - Chronic obstructive pulmonary disease Dry mouth Dyspnea Eczema of face Fatigue Former smoker Has received influenza vaccination in current influenza season Hospital discharge follow-up Hyperlipidemia Hypertension Long-term use of high-risk medication Medicare annual wellness visit, subsequent Muscle tightness Need for hepatitis C screening test Need for influenza vaccination Need for vaccination Paroxysmal atrial fibrillation Risk and functional assessment Screening for diabetes mellitus Screening for ischemic heart disease Screening for prostate cancer Seasonal allergies Secondary hypercoagulable state Social anxiety disorder Stage III chronic kidney disease Vitamin D deficiency Well adult exam Historical Cough GERD - Gastro-esophageal reflux disease Trigger thumb of right hand Procedure/Surgical History Stress testing using pharmacologic-induced stress: 04/29/24 Echocardiogram: 04/29/24 Colonoscopy: 03/16/19 Tonsillectomy Hemorrhoidectomy Cataract extraction Medications Home Medications (20) Active Advil 200 mg oral tablet 400 mg = 2 tab(s), PRN, Oral, q4h Aleve 220 mg oral tablet 220 mg = 1 tab(s), PRN, Oral, q8h Angela 12 Hour Allergy 1 tab, Oral, qDay carvedilol 12.5 mg oral tablet 18.75 mg = 1.5 tab(s), Oral, BID Dulcolax Stool Softener 100 mg oral capsule 100 mg = 1 cap(s), PRN, Oral, BID Eliquis 5 mg oral tablet 5 mg = 1 tab(s), Oral, BID Fish Oil 1000 mg oral capsule 1,000 mg = 1 cap(s), Oral, BID fluticasone proprionate NASAL 50 mcg/ spray 50 mcg = 1 spray(s), Nostril, each, BID fluticasone-salmeterol 250 mcg-50 mcg/inh inhalation powder 1 puff(s), PRN, Inhalation, BID hydroCHLOROthiazide 25 mg oral tablet 25 mg = 1 tab(s), Oral, qDay losartan 50 mg oral tablet 50 mg = 1 tab(s), Oral, qDay melatonin 1 mg oral tablet 1 mg = 1 tab(s), PRN, Oral, qHS Misc Medication One A Day Men's Complete oral tablet , Oral, qDay Preser Vision 2 tablets, Oral, qDay ProAir HFA MDI (90 mcg/inh) inhalation aerosol 2 puff(s), Inhalation, q6hr simvastatin 20 mg oral tablet 20 mg = 1 tab(s), Oral, qHS tamsulosin 0.4 mg oral capsule 0.4 mg = 1 cap(s), Oral, qPM Vitamin D3 25 mcg (1000 intl units) oral capsule 75 mcg = 3 cap(s), Oral, qDay Wellbutrin XL 300 mg/24 hours oral tablet, extended release 300 mg = 1 tab(s), Oral, q24h Allergies Wixela Inhub Difficulty breathing, Irregular heart beat tiZANidine Rash, Nausea zithromax Cramping, Nausea Social History Alcohol Use: Current. Type: Beer. Frequency: 1-2 times per month., 10/24/2023 Home/Environment Living situation: Home/Independent. Domestic Concerns: None. Lives In: 1st floor bedroom, 1st floorbathroom. Current Home Treatments Blood Pressure monitoring., 11/25/2024 Nutrition/Health Type of diet: Regular. Caffeine intake amount: about 4 x a week-coffee, soda. Eating Difficulties None., 11/25/2024 Substance Abuse Use: Never., 04/28/2019 Tobacco Nicotine Use: Former smoker, quit more than 30 days ago. Type: Cigarettes. Tobacco use per day: 2. Started at age: 20 Years. Stopped at age: 26 Years. Exposure to Tobacco Smoke Lives in non-smoking home., 11/25/2024 Family History Diabetes: Mother. Glaucoma: Father. Heart disease: Mother and Father. Hypertension: Mother. Stroke: Mother. Health Status Family Member(s) Immunizations pneumococcal 13-valent conjugate vaccine: 0 unknown unit (06/30/19) pneumococcal 13-valent conjugate vaccine: 0 unknown unit (03/08/16) pneumococcal 23-valent vaccine(Pneumovax: 0 unknown unit (12/20/17) SARS-CoV-2 (COVID-19) mRNA-1273 vaccine: 0.25 unknown unit (12/21/21) SARS-CoV-2 (COVID-19) mRNA-1273 vaccine: 0.25 unknown unit (08/11/21) SARS-CoV-2 (COVID-19) mRNA-1273 vaccine: 100 mcg (12/26/20) SARS-CoV-2 (COVID-19) mRNA-1273 vaccine: 100 mcg (11/28/20) tetanus/diphth/pertuss (Tdap) adult/adol: 0.5 unknown unit (02/12/23) zoster vaccine, inactivated: 0 unknown unit (08/25/20) zoster vaccine, inactivated: 0 unknown unit (04/28/20) Code Status No qualifying data available. Digitally Signed by BARRY IRBY MD on 12/02/2024 07:29 AM [id number] Hospital Discharge instructions Patient Education 07/24/2024 14:49:43 Atrial Fibrillation Atrial Fibrillation Atrial fibrillation is a condition in which the heart beats in an irregular pattern. It is caused by a problem in the heart's electrical pathways. It can be a sign of heart disease or other health problems that affect the heart. Heart palpitations are the most common symptom of atrial fibrillation. This is the feeling that your heart is fluttering, beating fast, hard, or irregular. When the heart beats too fast, it doesn't pump blood very well. This can cause other symptoms like anxiety, fatigue, shortness of breath, chestpain, dizziness, or fainting. Atrial fibrillation may come and go. It can last from a few hours to a couple of days. Or, it may become chronic, lasting for months at a time or even become permanent. Atrial fibrillation may be caused by heart disease or other conditions in the body that affect the heart: Coronary artery disease (atherosclerosis) High blood pressure Disease of the heart valves Enlarged heart Heart failure Atrial fibrillation can also occur without heart disease because of: Overactive thyroid (hyperthyroid) Chronic lung disease (COPD, emphysema, bronchitis) Heavy alcohol use Cardiac stimulants like cocaine, amphetamines, diet pills, certain decongestant cold medicines, caffeine, or nicotine Infection Blood clot in the lung (pulmonary embolus) Diabetes Chronic kidney disease Obesity Extreme athletic conditioning Treating or removing these causes will help your treatment for atrial fibrillation. It will also make it less likely for the atrial fibrillation to come back. Atrial fibrillation can alternate back and forth with another abnormal rhythm called atrial flutter. Atrial flutter is a more regular heart rhythm and is also associated with an increased stroke risk. Proper treatment can lower your risk for stroke. Home care Follow these guidelines when caring for yourself at home: Go back to your usual activities as soon as you are feeling back to normal. If you smoke, stop smoking. Contact your healthcare provider or a local stop- smoking program for help. Don't use stimulants like alcohol, cocaine, amphetamines, diet pills, certain decongestant cold medicines, caffeine, or nicotine. If your provider prescribed medicine to stop atrial fibrillation from coming back, take it exactly as directed. Some medicines must be taken every day, not just when you have symptoms. This will helpthem work as they should. If you were prescribed warfarin to lower your risk for stroke, have your blood tested on a regular basis as advised by your provider. This will make sure you are getting the dose that is right for you. It also lower your risk for side effects. Follow-up care Follow up with your healthcare provider, or as advised. When to seek medical advice Call your healthcare provider right away if any of these following occur: Shortness of breath or swelling in the legs gets worse Unexpected weight gain Chest pain or the sense that your heart is fluttering or beating fast or hard (palpitations) Any sign of bleeding if you are on a blood thinner Pain, redness, or swelling in one leg Also call your provider right away if you have these signs of stroke: Weakness of an arm or leg or one side of the face Difficulty with speech or vision Extreme drowsiness, confusion, dizziness, or fainting [id number] [employer]. [address] [place] [address]. All rights reserved. This information is not intended as a substitute for professional medical care. Always follow yourhealthcare professional's instructions. Follow Up Care 07/24/2024 12:11:25 With:Go to emergency room if symptoms worsen Address:Unknown When:2-4 days With:ELAINE CRUZ Address: [address] [facility] [address] [place] [phone]- [phone] When:2-4 days [facility] 11-01-2024 Note Discharge Instructions Thank you for allowing [facility] to assist you with your healthcare needs. The following is importantdischarge information regarding your hospital visit. Diagnosis from Today's Visit Paroxysmal A-fib What to Do Next Instructions from Your Care Team Please follow up with Neli as scheduled Saturday. if you experience any chest pain, worsened palpitations that don't resolve at home or elevated HR in the 120s or higher please present to the ED for more emergent evaluation. No qualifying data available. Post Acute Orders No qualifying data available. You Need to Schedule the Following Appointments Follow Up with Go to emergency room if symptoms worsen When:Within 2-4 days Follow Up with ELAINE CRUZ When:Within 2-4 days Where:[address] [facility] [address] [place] [address]- [phone] Allergies tiZANidine Rash, Nausea zithromax Cramping, Nausea Medications Please ask your primary doctor or pharmacist before taking any other medication not listed, including over the counter drugs, herbal medications, vitamins and or supplements as they may interact withyour home medications. What How Much When Why Instructions Last Dose Unchanged albuterol (ProAir HFA MDI (90 mcg/ inh) inhalation aerosol) 2 puff(s) by inhalation Every 6 hours COPD - Chronic obstructive pulmonary disease Duration: 30 Days Unchanged apixaban (Eliquis 5 mg oral tablet) 1 tab(s) by mouth Two (2) times a day Unchanged buPROPion (Wellbutrin XL 300 mg/ 24 hours oral tablet, extended release) 1 tab(s) by mouth Once a day Social anxiety disorder Unchanged carvedilol (carvedilol 12.5 mg oral tablet) 1.5 tab(s) by mouth Two (2) times a day Dose was increased Unchanged cholecalciferol (Vitamin D3 25 mcg (1000 intl units) oral capsule) 3 cap by mouth Once a day Unchanged fexofenadine (Angela 12 Hour Allergy) by mouth Once a day Unchanged fluticasone nasal (fluticasone proprionate NASAL 50 mcg/ spray) 1 spray(s) each nostril Two (2) times a day Seasonal allergies Duration: 30 Days Unchanged fluticasone-salmeterol (Wixela Inhub 250 mcg-50 mcg inhalation powder) 1 puff(s) by inhalation Two (2) times a day COPD - Chronic obstructive pulmonary disease Duration: 30 Days rinse mouth and throat after use Unchanged hydroCHLOROthiazide (hydroCHLOROthiazide 25 mg oral tablet) 1 tab(s) by mouth Once a day Hypertension Unchanged losartan (losartan 50 mg oral tablet) 1 tab(s) by mouth Once a day Hypertension Unchanged melatonin (melatonin 1 mg oral tablet) 1 tab(s) by mouth Daily at bedtime as needed for as needed for insomnia Unchanged Misc Medication Osteo Bi-Flex Unchanged Misc Medication (Preser Vision) 2 tablets by mouth Once a day Unchanged multivitamin with minerals (One A Day Men's Complete oral tablet) by mouth Once a day Unchanged omega-3 polyunsaturated fatty acids (Fish Oil 1000 mg oral capsule) 1 cap by mouth Two (2) times a day Unchanged simvastatin (simvastatin 20 mg oral tablet) 1 tab(s) by mouth Daily at bedtime Hyperlipidemia Unchanged tamsulosin (tamsulosin 0.4 mg oral capsule) 1 cap by mouth Once a day Please take this list to your next doctor s visit. Bring all medications you take, including over the counter medications, herbals and other supplements with you to your doctor s visit. Patients and families are reminded to discard old lists and to update any records with all medication providers or retail pharmacies. Education Materials Atrial Fibrillation Atrial fibrillation is a condition in which the heart beats in an irregular pattern. It is caused by a problem in the heart's electrical pathways. It can be a sign of heart disease or other health problems that affect the heart. Heart palpitations are the most common symptom of atrial fibrillation. This is the feeling that your heart is fluttering, beating fast, hard, or irregular. When the heart beats too fast, it doesn't pump blood very well. This can cause other symptoms like anxiety, fatigue, shortness of breath, chestpain, dizziness, or fainting. Atrial fibrillation may come and go. It can last from a few hours to a couple of days. Or, it may become chronic, lasting for months at a time or even become permanent. Atrial fibrillation may be caused by heart disease or other conditions in the body that affect the heart: Coronary artery disease (atherosclerosis) High blood pressure Disease of the heart valves Enlarged heart Heart failure Atrial fibrillation can also occur without heart disease because of: Overactive thyroid (hyperthyroid) Chronic lung disease (COPD, emphysema, bronchitis) Heavy alcohol use Cardiac stimulants like cocaine, amphetamines, diet pills, certain decongestant cold medicines, caffeine, or nicotine Infection Blood clot in the lung (pulmonary embolus) Diabetes Chronic kidney disease Obesity Extreme athletic conditioning Treating or removing these causes will help your treatment for atrial fibrillation. It will also make it less likely for the atrial fibrillation to come back. Atrial fibrillation can alternate back and forth with another abnormal rhythm called atrial flutter. Atrial flutter is a more regular heart rhythm and is also associated with an increased stroke risk. Proper treatment can lower your risk for stroke. Home care Follow these guidelines when caring for yourself at home: Go back to your usual activities as soon as you are feeling back to normal. If you smoke, stop smoking. Contact your healthcare provider or a local stop- smoking program for help. Don't use stimulants like alcohol, cocaine, amphetamines, diet pills, certain decongestant cold medicines, caffeine, or nicotine. If your provider prescribed medicine to stop atrial fibrillation from coming back, take it exactly as directed. Some medicines must be taken every day, not just when you have symptoms. This will helpthem work as they should. If you were prescribed warfarin to lower your risk for stroke, have your blood tested on a regular basis as advised by your provider. This will make sure you are getting the dose that is right for you. It also lower your risk for side effects. Follow-up care Follow up with your healthcare provider, or as advised. When to seek medical advice Call your healthcare provider right away if any of these following occur: Shortness of breath or swelling in the legs gets worse Unexpected weight gain Chest pain or the sense that your heart is fluttering or beating fast or hard (palpitations) Any sign of bleeding if you are on a blood thinner Pain, redness, or swelling in one leg Also call your provider right away if you have these signs of stroke: Weakness of an arm or leg or one side of the face Difficulty with speech or vision Extreme drowsiness, confusion, dizziness, or fainting [id number] [employer]. [address] [place] [address]. All rights reserved. This information is not intended as a substitute for professional medical care. Always follow yourhealthcare professional's instructions. Additional Information VACCINATE! IT SAVES LIVES! Members of the community who have not yet received the COVID-19 vaccine and would like to receive it can visit one of [facility] vaccine clinics. There are many vaccine clinic locations within the [facility]. For locations and available times, please visit www.gettheshot.coronavirus.[place].gov/. It is important to note that some COVID mobile vaccine clinics are held outdoors and may be canceled in rainy or stormy conditions. To learn more about pediatric vaccinations (ages 5-11), we invite you to visit the [facility] webpage. [email or web address] learn more about the COVID-19 vaccine, we invite you to visit the CDC website for a list of frequently asked questions. https://www.cdc.gov/coronavirus/2019-ncov/vaccines/faq.html [facility] Patient Portal Access Instructions: Stay connected with your healthcare team and access your personal medical information anytime with the [employer] Patient Portal. If you would like a full copy of your medical records please contact the [facility] Medical Records Department Saturday through Saturday between 8a.m. and 4:30p.m. Please follow the directions below to access the portal: 1.Access the email account you provided upon registration to the [facility].2.Look for an invitation email from [facility].3.Open the email and access the invitation link: Accept Invitation to [facility]4.Fill in the required hardin to create your account. Sign into www.[employer] with your username and password that you created in the above steps to stay up to date. You can then view a summary of results, a summary of your visits, and the ability to download your summaries to your computer or send the information securely to a physician. Remember that your healthcare information is confidential, so carefully consider who you will allow to register on the [facility] Patient Portal for access to your information. You can also access the [facility] Patient Portal on the [employer]. Simply click on Health Records under [employer] and then click on the [employer] logo. HOW TO SAFELY DISPOSE OF PRESCRIPTION MEDICATIONS Please use one of the following methods to safely dispose of your unused medications. 1.Use a drug disposal kit: the drug disposal pouch allows you to safely discard your old and unuseddrugs. Ask your nurse to give you one when you are discharged.2.Visit a local take-back location: Many local pharmacies and police departments have programs that collect old and unwanted prescriptiondrugs. Call your local pharmacy or go to [email or web address] to find one close to you.3.Make use of household items: Use cat litter or old coffee grounds to dispose medications if other options arenot available. Mix your drugs with these household products, seal them in an airtight container andthrow it into the garbage. Call [facility]: [phone] to be sure your drugs can be disposed of in this way. Some medicines may require a different approach.4.Never flush your medications down the toilet. IF YOU HAVE BEEN PRESCRIBED AN OPIOIDS FOR PAIN If you have been prescribed an opioid (such as hydrocodone, oxycodone or morphine), it is critical to understand the possible side effects and risks of opioid pain medications. Even when taken as directed, opioids can have several side effects including: Tolerance, meaning you might need to take more of a medication for the same pain relief. Nausea, vomiting and/or constipation. Sleepiness, dizziness, dry mouth, confusion, depression or itching. Physical dependence, meaning you have withdrawal symptoms when a medication is stopped ? this can develop within a few days. KNOW YOUR RESPONSIBILITIES It is important to know exactly how much and how often to take the opioid pain medications you are prescribed. Never take opioids in higher amounts or more often than prescribed. Do not combine opioids with alcohol or other drugs that cause drowsiness, such as benzodiazepines, also known as benzos,including diazepam and alprazolam, muscle relaxants or sleep aids. Never sell or share prescriptionopioids. This is illegal. Store opioids in a secure place and out of reach of others (including children, family, friends and visitors). The last page(s) of this document has been signed and retained as a CHART COPY Signatures Patient Education Materials Atrial Fibrillation Medication Leaflets My discharge plan and instructions have been reviewed and explained to me and I,SARAH ABRAMS understand my current condition and have read and understand these discharge instructions. I have received a written copy of the plan/instructions. If I have questions, I am aware that I should contact my doctor. Patient/Electrician Bus Signature: Date/Time: Relationship to Patient: Witness Name/Signature: Date/Time: [facility]11-01-2024 Note ORIGINAL EXAMINATION: ONE XRAY VIEW OF THE CHEST07/24/2024 1:02 pm COMPARISON: 04/12/2024 HISTORY: ORDERING SYSTEM PROVIDED HISTORY: Reason for Exam: chest pain FINDINGS: The cardiomediastinal contours are normal. Vascular structures appear within normal limits. There is no consolidation. No pleural fluid or pneumothorax. No aggressive osseous lesions identified. IMPRESSION: No acute radiographic findings. Interpreted by: Spencer Bazzi MD Preliminary Report By: Spencer Bazzi MD Electronically signed By Spencer Bazzi MD Dictated Date: 07/24/2024 1:05:47 PM Prelim Date: 07/24/2024 1:06:21 PM Sign Date: 07/24/2024 1:06:21 PM [facility] Sinus rhythm Electronic Signature: FIFI GROSS 07/24/2024 12:26:56[facility] 07-21-2024 Hospital Discharge instructions Patient Education 04/12/2024 15:01:41 Atrial Fibrillation Atrial Fibrillation Atrial fibrillation is a condition in which the heart beats in an irregular pattern. It is caused by a problem in the heart's electrical pathways. It can be a sign of heart disease or other health problems that affect the heart. Heart palpitations are the most common symptom of atrial fibrillation. This is the feeling that your heart is fluttering, beating fast, hard, or irregular. When the heart beats too fast, it doesn't pump blood very well. This can cause other symptoms like anxiety, fatigue, shortness of breath, chestpain, dizziness, or fainting. Atrial fibrillation may come and go. It can last from a few hours to a couple of days. Or, it may become chronic, lasting for months at a time or even become permanent. Atrial fibrillation may be caused by heart disease or other conditions in the body that affect the heart: Coronary artery disease (atherosclerosis) High blood pressure Disease of the heart valves Enlarged heart Heart failure Atrial fibrillation can also occur without heart disease because of: Overactive thyroid (hyperthyroid) Chronic lung disease (COPD, emphysema, bronchitis) Heavy alcohol use Cardiac stimulants like cocaine, amphetamines, diet pills, certain decongestant cold medicines, caffeine, or nicotine Infection Blood clot in the lung (pulmonary embolus) Diabetes Chronic kidney disease Obesity Extreme athletic conditioning Treating or removing these causes will help your treatment for atrial fibrillation. It will also make it less likely for the atrial fibrillation to come back. Atrial fibrillation can alternate back and forth with another abnormal rhythm called atrial flutter. Atrial flutter is a more regular heart rhythm and is also associated with an increased stroke risk. Proper treatment can lower your risk for stroke. Home care Follow these guidelines when caring for yourself at home: Go back to your usual activities as soon as you are feeling back to normal. If you smoke, stop smoking. Contact your healthcare provider or a local stop- smoking program for help. Don't use stimulants like alcohol, cocaine, amphetamines, diet pills, certain decongestant cold medicines, caffeine, or nicotine. If your provider prescribed medicine to stop atrial fibrillation from coming back, take it exactly as directed. Some medicines must be taken every day, not just when you have symptoms. This will helpthem work as they should. If you were prescribed warfarin to lower your risk for stroke, have your blood tested on a regular basis as advised by your provider. This will make sure you are getting the dose that is right for you. It also lower your risk for side effects. Follow-up care Follow up with your healthcare provider, or as advised. When to seek medical advice Call your healthcare provider right away if any of these following occur: Shortness of breath or swelling in the legs gets worse Unexpected weight gain Chest pain or the sense that your heart is fluttering or beating fast or hard (palpitations) Any sign of bleeding if you are on a blood thinner Pain, redness, or swelling in one leg Also call your provider right away if you have these signs of stroke: Weakness of an arm or leg or one side of the face Difficulty with speech or vision Extreme drowsiness, confusion, dizziness, or fainting [id number] [employer]. [address] [place] [address]. All rights reserved. This information is not intended as a substitute for professional medical care. Always follow yourhealthcare professional's instructions. Follow Up Care 04/12/2024 05:14:28 With:CHRIS MCGILL MD Address: [address] [facility] [address] [facility] [place] [address] [phone] When:3-7 days With:LISA WREN DO Address: [address] [facility] [place] [phone] When:2-4 days [facility] 07-21-2024 Emergency department Discharge summary Discharge Instructions Thank you for allowing [facility] to assist you with your healthcare needs. The following is importantdischarge information regarding your hospital visit. Diagnosis from Today's Visit Atrial fibrillation What to Do Next Instructions from Your Care Team No qualifying data available. Post Acute Orders No qualifying data available. You Need to Schedule the Following Appointments Follow Up with CHRIS MCGILL MD When:Within 3-7 days Where:[address] [facility] [id number] [facility] [place] [address]- [phone] Follow Up with LISA WREN DO When:Within 2-4 days Where:[address] [facility] [place] [phone] Allergies tiZANidine Rash, Nausea zithromax Cramping, Nausea Medications Please ask your primary doctor or pharmacist before taking any other medication not listed, including over the counter drugs, herbal medications, vitamins and or supplements as they may interact withyour home medications. What How Much When Why Instructions Last Dose New apixaban (Eliquis 5 mg oral tablet) 1 tab(s) by mouth Two (2) times a day Printed Prescription Unchanged albuterol (ProAir HFA MDI (90 mcg/ inh) inhalation aerosol) 2 puff(s) by inhalation Every 6 hours COPD - Chronic obstructive pulmonary disease Duration: 30 Days Unchanged buPROPion (Wellbutrin XL 300 mg/ 24 hours oral tablet, extended release) 1 tab(s) by mouth Once a day Social anxiety disorder Unchanged cholecalciferol (Vitamin D3 25 mcg (1000 intl units) oral capsule) 3 cap by mouth Once a day Unchanged fexofenadine (Angela 12 Hour Allergy) by mouth Once a day Unchanged fluticasone nasal (fluticasone proprionate NASAL 50 mcg/ spray) 1 spray(s) each nostril Two (2) times a day Seasonal allergies Duration: 30 Days Unchanged hydroCHLOROthiazide (hydroCHLOROthiazide 25 mg oral tablet) 1 tab(s) by mouth Once a day Hypertension Unchanged losartan (losartan 50 mg oral tablet) 1 tab(s) by mouth Once a day Hypertension Unchanged melatonin (melatonin 1 mg oral tablet) 1 tab(s) by mouth Daily at bedtime as needed for as needed for insomnia Unchanged metoprolol (metoprolol succinate 100 mg oral TABLET extended release) 1 tab(s) by mouth Once a day Hypertension Unchanged Misc Medication Osteo Bi-Flex Unchanged Misc Medication (Preser Vision) 2 tablets by mouth Once a day Unchanged multivitamin with minerals (One A Day Men's Complete oral tablet) by mouth Once a day Unchanged omega-3 polyunsaturated fatty acids (Fish Oil 1000 mg oral capsule) 1 cap by mouth Two (2) times a day Unchanged simvastatin (simvastatin 20 mg oral tablet) 1 tab(s) by mouth Daily at bedtime Hyperlipidemia Unchanged tamsulosin (tamsulosin 0.4 mg oral capsule) 1 cap by mouth Once a day Please take this list to your next doctor s visit. Bring all medications you take, including over the counter medications, herbals and other supplements with you to your doctor s visit. Patients and families are reminded to discard old lists and to update any records with all medication providers or retail pharmacies. Medication Leaflets apixaban (a PIX a ban) Alysha What is the most important information I should know about apixaban? Apixaban increases your risk of severe or fatal bleeding, especially if you take certain medicines at the same time (including some cjvu-wgf-rbssvrv medicines). Tell your doctor about all medicines you have recently used. Call your doctor at once if you have signs of bleeding such as: easy bruising, unusual bleeding, unexpected pain or swelling, feeling very weak or dizzy, bleeding gums, nosebleeds, heavy menstrual bleeding, blood in your urine or stools, coughing up blood or vomit that looks like coffee grounds, orany bleeding that will not stop. Apixaban can cause a very serious blood clot around your spinal cord that can lead to long-term or permanent paralysis. This type of blood clot can occur during a spinal tap or spinal anesthesia (epidural), especially if you have a genetic spinal defect, if you use a spinal catheter, if you've had spinal surgery or repeated spinal taps, or if you use other drugs that can affect blood clotting. Get emergency medical help if you have symptoms of a spinal cord blood clot such as tingling, numbness, or muscle weakness especially in your legs and feet. Do not stop taking apixaban unless your doctor tells you to. Stopping suddenly can increase your risk of blood clot or stroke. What is apixaban? Apixaban is used to lower the risk of stroke caused by a blood clot in people with a heart rhythm disorder called atrial fibrillation. Apixaban is also used after hip or knee replacement surgery to prevent a type of blood clot called deep vein thrombosis (DVT), which can lead to blood clots in the lungs (pulmonary embolism). Apixaban is also used to treat DVT or pulmonary embolism (PE), and to lower your risk of having a repeat DVT or PE. Apixaban may also be used for purposes not listed in this medication guide. What should I discuss with my healthcare provider before taking apixaban? You should not take apixaban if you are allergic to it, or if you have active bleeding from a surgery, injury, or other cause. Apixaban may cause you to bleed more easily, especially if you have a bleeding disorder that is inherited or caused by disease. Tell your doctor if you have an artificial heart valve, or if you have ever had: bleeding problems; antiphospholipid syndrome, especially if you have a triple positive antibody test; or liver or kidney disease. Apixaban can cause a very serious blood clot around your spinal cord if you undergo a spinal tap orreceive spinal anesthesia (epidural). This type of blood clot could cause long-term paralysis, and may be more likely to occur if: you have a spinal catheter in place or if a catheter has been recently removed; you have a history of spinal surgery or repeated spinal taps; you have recently had a spinal tap or epidural anesthesia; you take aspirin or other NSAIDs (nonsteroidal anti-inflammatory drugs)--ibuprofen (Advil, Motrin),naproxen (Aleve), diclofenac, indomethacin, meloxicam, and others; or you are using other medicines to treat or prevent blood clots. Taking apixaban may increase the risk of bleeding while you are or during your delivery. Tell your doctor if you are or plan to become . Do not breastfeed. How should I take apixaban? Follow all directions on your prescription label and read all medication guides or instruction sheets. Your doctor may occasionally change your dose. Use the medicine exactly as directed. You may take apixaban with or without food. If you cannot swallow a tablet whole, crush it and mix with water, apple juice, or applesauce. Swallow the mixture right away without chewing. A crushed tablet mixture may also be given through a nasogastric (NG) feeding tube. Read and carefully follow any Instructions for Use provided with your medicine. Apixaban can make it easier for you to bleed, even from a minor injury. Seek medical attention if you have bleeding that will not stop. Tell your doctor if you have a planned surgery or dental work. You may need to stop taking apixabanfor a short time. Do not stop taking apixaban unless your doctor tells you to. If you stop taking apixaban for any reason, your doctor may prescribe another medicine to prevent blood clots. Store at room temperature away from moisture and heat. What happens if I miss a dose? Take the missed dose on the same day you remember it. Take your next dose at the regular time and stay on your twice-daily schedule. Do not take two doses at one time. Get your prescription refilled before you run out of medicine completely. What happens if I overdose? Seek emergency medical attention or call the Poison Help line at . What should I avoid while taking apixaban? Avoid activities that may increase your risk of bleeding or injury. Use extra care while shaving orbrushing your teeth. What are the possible side effects of apixaban? Get emergency medical help if you have signs of an allergic reaction: hives; chest pain, wheezing, difficult breathing; feeling light-headed; swelling of your face, lips, tongue, or throat. Also seek emergency medical attention if you have symptoms of a spinal blood clot such as tingling,numbness, or muscle weakness especially in your legs and feet. Call your doctor at once if you have: easy bruising, unusual bleeding (nose, mouth, vagina, or rectum), bleeding from wounds or needle injections, any bleeding that will not stop; heavy menstrual bleeding; headache, dizziness, weakness, feeling like you might pass out; urine that looks red, pink, or brown; or black or bloody stools, coughing up blood or vomit that looks like coffee grounds. This is not a complete list of side effects and others may occur. Call your doctor for medical advice about side effects. You may report side effects to FDA at 9-216-YZL-2950. What other drugs will affect apixaban? Sometimes it is not safe to use certain medications at the same time. Some drugs can affect your blood levels of other drugs you take, which may increase side effects or make the medications less effective. Many other drugs (including some uvqh-iyq-cvthbnv medicines) can increase your risk of bleeding or blood clots. Tell your doctor about all medicines you have recently used, especially: any other medicines to treat or prevent blood clots; a blood thinner such as heparin or warfarin (Coumadin, Jantoven); an antidepressant; or aspirin or other NSAID (nonsteroidal anti-inflammatory drug) used terminal block assembler. This list is not complete and many other drugs may affect apixaban. This includes prescription and smay-dwz-kknzdwq medicines, vitamins, and herbal products. Not all possible drug interactions are listed here. Where can I get more information? Your pharmacist can provide more information about apixaban. Remember, keep this and all other medicines out of the reach of children, never share your medicines with others, and use this medication only for the indication prescribed. Every effort has been made to ensure that the information provided by [employer]. ('[employer]') is accurate, up-to-date, and complete, but no guarantee is made to that effect. Drug information contained herein may be time sensitive. [employer] information has been compiled for use by healthcare practitioners and consumers in the [place] and therefore [employer] does not warrant that uses outside of the [place] are appropriate, unless specifically indicated otherwise. [employer] drug information does not endorse drugs, diagnose patients or recommend therapy. [employer] drug information isan informational resource designed to assist licensed healthcare practitioners in caring for their p atients and/or to serve consumers viewing this service as a supplement to, and not a substitute for, the expertise, skill, knowledge and judgment of healthcare practitioners. The absence of a warningfor a given drug or drug combination in no way should be construed to indicate that the drug or drug combination is safe, effective or appropriate for any given patient. [employer] does not assume any responsibility for any aspect of healthcare administered with the aid of information [employer] provides. The information contained herein is not intended to cover all possible uses, directions, precautions, warnings, drug interactions, allergic reactions, or adverse effects. If you have questions about the drugs you are taking, check with your doctor, nurse or pharmacist. Copyright 5124-6763 [employer]. Version: 6.01. Revision Date: 05/16/2021. Education Materials Atrial Fibrillation Atrial fibrillation is a condition in which the heart beats in an irregular pattern. It is caused by a problem in the heart's electrical pathways. It can be a sign of heart disease or other health problems that affect the heart. Heart palpitations are the most common symptom of atrial fibrillation. This is the feeling that your heart is fluttering, beating fast, hard, or irregular. When the heart beats too fast, it doesn't pump blood very well. This can cause other symptoms like anxiety, fatigue, shortness of breath, chestpain, dizziness, or fainting. Atrial fibrillation may come and go. It can last from a few hours to a couple of days. Or, it may become chronic, lasting for months at a time or even become permanent. Atrial fibrillation may be caused by heart disease or other conditions in the body that affect the heart: Coronary artery disease (atherosclerosis) High blood pressure Disease of the heart valves Enlarged heart Heart failure Atrial fibrillation can also occur without heart disease because of: Overactive thyroid (hyperthyroid) Chronic lung disease (COPD, emphysema, bronchitis) Heavy alcohol use Cardiac stimulants like cocaine, amphetamines, diet pills, certain decongestant cold medicines, caffeine, or nicotine Infection Blood clot in the lung (pulmonary embolus) Diabetes Chronic kidney disease Obesity Extreme athletic conditioning Treating or removing these causes will help your treatment for atrial fibrillation. It will also make it less likely for the atrial fibrillation to come back. Atrial fibrillation can alternate back and forth with another abnormal rhythm called atrial flutter. Atrial flutter is a more regular heart rhythm and is also associated with an increased stroke risk. Proper treatment can lower your risk for stroke. Home care Follow these guidelines when caring for yourself at home: Go back to your usual activities as soon as you are feeling back to normal. If you smoke, stop smoking. Contact your healthcare provider or a local stop- smoking program for help. Don't use stimulants like alcohol, cocaine, amphetamines, diet pills, certain decongestant cold medicines, caffeine, or nicotine. If your provider prescribed medicine to stop atrial fibrillation from coming back, take it exactly as directed. Some medicines must be taken every day, not just when you have symptoms. This will helpthem work as they should. If you were prescribed warfarin to lower your risk for stroke, have your blood tested on a regular basis as advised by your provider. This will make sure you are getting the dose that is right for you. It also lower your risk for side effects. Follow-up care Follow up with your healthcare provider, or as advised. When to seek medical advice Call your healthcare provider right away if any of these following occur: Shortness of breath or swelling in the legs gets worse Unexpected weight gain Chest pain or the sense that your heart is fluttering or beating fast or hard (palpitations) Any sign of bleeding if you are on a blood thinner Pain, redness, or swelling in one leg Also call your provider right away if you have these signs of stroke: Weakness of an arm or leg or one side of the face Difficulty with speech or vision Extreme drowsiness, confusion, dizziness, or fainting [phone] [employer]. [address] [place] [address]. All rights reserved. This information is not intended as a substitute for professional medical care. Always follow yourhealthcare professional's instructions. Additional Information VACCINATE! IT SAVES LIVES! Members of the community who have not yet received the COVID-19 vaccine and would like to receive it can visit one of [facility] vaccine clinics. There are many vaccine clinic locations within the [facility]. For locations and available times, please visit www.[email or web address].[place].gov/. It is important to note that some COVID mobile vaccine clinics are held outdoors and may be canceled in rainy or stormy conditions. To learn more about pediatric vaccinations (ages 5-11), we invite you to visit the [facility] webpage. [email or web address] learn more about the COVID-19 vaccine, we invite you to visit the CDC website for a list of frequently asked questions. https://www.cdc.gov/coronavirus/2019-ncov/vaccines/faq.html [facility] Patient Portal Access Instructions: Stay connected with your healthcare team and access your personal medical information anytime with the [facility] Patient Portal. If you would like a full copy of your medical records please contact the [facility] Medical Records Department Saturday through Saturday between 8a.m. and 4:30p.m. Please follow the directions below to access the portal: 1.Access the email account you provided upon registration to the [facility].2.Look for an invitation email from [facility].3.Open the email and access the invitation link: Accept Invitation to [facility]4.Fill in the required hardin to create your account. Sign into [email or web address] with your username and password that you created in the above steps to stay up to date. You can then view a summary of results, a summary of your visits, and the ability to download your summaries to your computer or send the information securely to a physician. Remember that your healthcare information is confidential, so carefully consider who you will allow to register on the [facility] Patient Portal for access to your information. You can also access the [facility] Patient Portal on the [employer]. Simply click on Health Records under [employer] and then click on the [facility] logo. HOW TO SAFELY DISPOSE OF PRESCRIPTION MEDICATIONS Please use one of the following methods to safely dispose of your unused medications. 1.Use a drug disposal kit: the drug disposal pouch allows you to safely discard your old and unuseddrugs. Ask your nurse to give you one when you are discharged.2.Visit a local take-back location: Many local pharmacies and police departments have programs that collect old and unwanted prescriptiondrugs. Call your local pharmacy or go to [email or web address] to find one close to you.3.Make use of household items: Use cat litter or old coffee grounds to dispose medications if other options arenot available. Mix your drugs with these household products, seal them in an airtight container andthrow it into the garbage. Call [facility]: [phone] to be sure your drugs can be disposed of in this way. Some medicines may require a different approach.4.Never flush your medications down the toilet. IF YOU HAVE BEEN PRESCRIBED AN OPIOIDS FOR PAIN If you have been prescribed an opioid (such as hydrocodone, oxycodone or morphine), it is critical to understand the possible side effects and risks of opioid pain medications. Even when taken as directed, opioids can have several side effects including: Tolerance, meaning you might need to take more of a medication for the same pain relief. Nausea, vomiting and/or constipation. Sleepiness, dizziness, dry mouth, confusion, depression or itching. Physical dependence, meaning you have withdrawal symptoms when a medication is stopped ? this can develop within a few days. KNOW YOUR RESPONSIBILITIES It is important to know exactly how much and how often to take the opioid pain medications you are prescribed. Never take opioids in higher amounts or more often than prescribed. Do not combine opioids with alcohol or other drugs that cause drowsiness, such as benzodiazepines, also known as benzos,including diazepam and alprazolam, muscle relaxants or sleep aids. Never sell or share prescriptionopioids. This is illegal. Store opioids in a secure place and out of reach of others (including children, family, friends and visitors). The last page(s) of this document has been signed and retained as a CHART COPY Signatures Patient Education Materials Atrial Fibrillation Medication Leaflets apixaban My discharge plan and instructions have been reviewed and explained to me and I,SARAH ABRAMS understand my current condition and have read and understand these discharge instructions. I have received a written copy of the plan/instructions. If I have questions, I am aware that I should contact my doctor. 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 No consolidation, pleural effusion, or vascular congestion is seen. The osseous structures are intact. IMPRESSION: No acute findings. Interpreted by: Deep Narvaez MD Preliminary Report By: Deep Narvaez MD Electronically signed By Deep Narvaez MD Dictated Date: 04/12/2024 6:12:52 AM Prelim Date: 04/12/2024 6:13:05 AM Sign Date: 04/12/2024 6:13:05 AM [facility] depression, probably rate related Prolonged QT interval Electronic Signature: RYAN PERES MD 04/12/2024 05:50:38[facility] Evaluation + Plan note Future Appointments Appointment Date:07/12/2021 11:00:00 AM Scheduled Provider:LISA WREN DO Location:[facility] Appointment Type:PC OV Appointment Date:08/30/2021 09:30:00 AM Scheduled Provider:LISA WREN DO Location:[facility] Appointment Type:PC OV [facility] Evaluation + Plan note Future Appointments Appointment Date:03/06/2022 09:30:00 AM Scheduled Provider:LISA WREN DO Location:[facility] Appointment Type:PC OV [facility] Evaluation + Plan note Future Appointments Appointment Date:06/15/2022 10:30:00 AM Scheduled Provider:LISA WREN DO Location:[facility] Appointment Type:PC OV Follow Up [facility] Evaluation + Plan note Future Appointments Appointment Date:03/20/2023 10:00:00 AM Scheduled Provider:LISA WREN DO Location:[facility] Appointment Type:PC OV Follow Up Future Scheduled Tests Laboratory* Vitamin D Level 08/08/22 * Complete Metabolic Panel 08/08/22 [facility] Evaluation + Plan note Future Appointments Appointment Date:01/22/2024 09:00:00 AM Scheduled Provider:LISA WREN DO Location:[facility] Appointment Type:PC OV Future Scheduled Tests Laboratory* Thyroid Stimulating Hormone 11/22/23 * Lipid Profile 11/22/23 * Vitamin D Level 11/22/23 * Complete Metabolic Panel 11/22/23 [facility] Evaluation + Plan note Future Appointments Appointment Date:01/22/2024 09:00:00 AM Scheduled Provider:LISA WREN DO Location:[facility] Appointment Type:PC OV [facility] Evaluation + Plan note Future Appointments Appointment Date:06/02/2024 09:30:00 AM Scheduled Provider:LISA WREN DO Location:[facility] Appointment Type:PC OV Future Scheduled Tests Laboratory* Basic Metabolic Panel 04/07/24 [facility] Evaluation + Plan note Future Appointments Appointment Date:06/17/2024 09:00:00 AM Scheduled Provider:ELAINE CRUZ Location:[facility] Appointment Type:CV OV Appointment Date:09/01/2024 10:30:00 AM Scheduled Provider:LISA WREN DO Location:[facility] Appointment Type:PC OV [facility] Evaluation + Plan note Future Appointments Appointment Date:07/27/2024 02:00:00 PM Scheduled Provider:ELAINE CRUZ Location:[facility] Appointment Type:CV OV Appointment Date:09/01/2024 10:30:00 AM Scheduled Provider:LISA WREN DO Location:[facility] Appointment Type:PC OV Appointment Date:10/21/2024 09:00:00 AM Scheduled Provider:ELAINE CRUZ Location:[facility] Appointment Type:CV OV [facility] Evaluation + Plan note Future Appointments Appointment Date:10/21/2024 09:00:00 AM Scheduled Provider:ELAINE CRUZ Location:[facility] Appointment Type:CV OV Appointment Date:01/12/2025 08:30:00 AM Scheduled Provider:LISA WREN DO Location:[facility] Appointment Type:PC OV Follow Up Future Scheduled Tests Laboratory* Prostate Specific Antigen 01/11/25 * Thyroid Stimulating Hormone 01/11/25 * Lipid Profile 01/11/25 * Vitamin D Level 01/11/25 * Complete Metabolic Panel 01/11/25 [facility] Evaluation + Plan note Future Appointments Appointment Date:12/02/2024 10:45:00 AM Scheduled Provider: Location:[facility] Appointment Type:EP Ablation PF-Ensite Appointment Date:01/12/2025 08:30:00 AM Scheduled Provider:LISA WREN DO Location:[facility] Appointment Type:PC OV Follow Up Appointment Date:03/04/2025 01:15:00 PM Scheduled Provider:ADARSH IRBY Location:[facility] Appointment Type:CV OV Appointment Date:04/22/2025 09:30:00 AM Scheduled Provider:ELAINE CRUZ Location:[facility] Appointment Type:CV OV Diagnostic Tests Pending * .Morphology 11/25/24 Future Scheduled Tests Laboratory* Prostate Specific Antigen 01/11/25 * Thyroid Stimulating Hormone 01/11/25 * Lipid Profile 01/11/25 * Vitamin D Level 01/11/25 * Complete Metabolic Panel 01/11/25 [facility] Evaluation noteNo assessment information available [facility] Work Phone: Hospital course Narrative No data available for this section [facility] Hospital Discharge instructions No data available for this section [facility] Progress note No data available for this section [facility] Summary Purpose Family History No Family History Records Found No data available for this section No data available for this section No data available for this section No Family History Records Found No data available for this section No data available for this section No data available for this section No data available for this section No data available for this section No Family History Records FoundNo Family History Records FoundNo Family History Records Found Advance Directives No Advanced Directives Records FoundNo Advanced Directives Records FoundNo Advanced Directives Records FoundNo Advanced Directives Records FoundNo Advanced Directives Records Found Chief Complaint and Reason for Visit Chief Complaint PSA Additional Source Comments (unrecognized sect ion and content) No Status Records FoundNo Status Records FoundNo Status Records FoundNo Status Records FoundNo Status Records Found INFORMATION SOURCE (unrecogn ized section and content) DATE CREATED AUTHOR 03/10/2021 [facility] DATE CREATED AUTHOR AUTHOR'S ORGANIZ ATION 05/03/2024 [facility] ([place]) DATE CREATED AUTHOR AUTHOR'S ORGANIZ ATION 12/11/2024 [facility] DATE CREATED AUTHOR AUTHOR'S ORGANIZ ATION 01/06/2025 [facility] DATE CREATED AUTHOR AUTHOR'S ORGANIZ ATION 02/22/2025 [facility] Care Team (unrecognized sect ion and content) Team Status: Active Member Role Status Dates Dr. Lisa Wren DO Primary Care Provider Active Team Status: Inactive Member Role Status Dates Dr. Lisa Wren DO Primary Care Provider Active Dr. Clarke Jasso MD Attending Provider, Referr ing Provider Active Care Team (unrecognized sect ion and content) Care Team Personnel Name: LISA WREN DO Position: P4 Physician - Primary Care Med Service: Active Provider Member Role: Primary Care Physician Address: Address: [address] [place], [place] [address] Name: CLARKE JASSO MD Position: P3 Physician - Urologist Med Service: Admitting Member Role: Urologist Address: Address: [address] [place] [id number] Care Team Related Persons Name: VICKI ABRAMS Address: Home [address] [place], [place] [id number] Goals (unrecognized section and content) Goals may be documented in a n alternate section FOR RECORDS PERTAINING TO PATIENTS WHO ARE OR HAVE BEEN ENROLLED IN A CHEMICAL DEPENDENCY/SUBSTANCEABUSE PROGRAM, SOME INFORMATION MAY BE OMITTED. This clinical summary was aggregated from multiple sources. Caution should be exercised in using it in the provision of clinical care. This summary normalizes information from multiple sources, and as a consequence, information in this document may materially change the coding, format and clinical context of patient data. In addition, data may be omitted in some cases. CLINICAL DECISIONS SHOULD BE BASED ON THE PRIMARY CLINICAL RECORDS. [facility] [employer] [facility]. provides no warranty or guarantee of the accuracy or completeness of information in this document.
[2025-02-25 07:45] LABS: PSA,Total- Diagnostic 6.11 ng/mL (0.00-4.00)
== END | disposition home or self-care (01) ==
LOC: LAB 06:10
PROVIDERS: PCP Family Medicine; Referring Provider Nurse Practitioner; Visit Provider Nurse Practitioner
DX: R97.20 Elevated prostate specific antigen [PSA] (principal)
CPT/HCPCS: 36415; 84153